=== PATIENT | female | born 1975 | race Caucasian/White ===

== ENCOUNTER 2016-04-28 03:19 | Emergency (ER) | payer SELFPAY ==
[~2016-04-28] VITALS: Ht 160 cm; Wt 54.0 kg
[2016-04-28 03:23] VITALS: BP 130/64; PULSE 72; RESP 18; TEMP 98.2
--- NOTE | 2016-04-28 03:48 | PD ---
HPI Chief Complaint: Back/ Neck Pain or Injury Time Seen by Provider: 03:44 Travel History International Travel<30 days: No Contact w/Intl Traveler<30days: No Traveled to known affect area: No History of Present Illness HPI 40-year-old white female presents to emergency Department with complaints of neck and back pain after alleges fall. The patient states that 8 days ago she had fallen backwards hurting her back and neck. She states that she try to treat herself at home over the week without success. She presents for evaluation. She denies syncope. She denies any focal numbness, tingling or weakness. She states the pain is more down her hips as well as up in her shoulders and neck. PFSH Past Medical History Narrative Medical Anxiety, depression, substance abuse Arthritis: No Asthma: No Autoimmune Disease: No Blood Disorders: No Anxiety: Yes Depression: Yes Heart Rhythm Problems: No Cancer: No Cardiovascular Problems: No High Cholesterol: No Chest Pain: No Congestive Heart Failure: No COPD: No Cerebrovascular Accident: No Diabetes: No Diminished Hearing: No Endocrine: No Gastrointestinal Disorders: No GERD: No Genitourinary: No Headaches: No Hiatal Hernia: No Immune Disorder: No Implanted Vascular Access Dvce: No Kidney Stones: No Musculoskeletal: No Neurologic: No Psychiatric: Yes Reproductive: No Respiratory: No Migraines: No Renal Failure: No Seizures: No Sickle Cell Disease: No Sleep Apnea: No Thyroid Disease: No Ulcer: No ?: Not LMP: TUBAL Menopausal: No : 4 Para: 2 Miscarriage: 0 : 2 Tubal Ligation: Yes Past Surgical History Abdominal Surgery: Yes (laparotomy) AICD: No Arteriovenous Shunt: No Cardiac Surgery: No Ear Surgery: No Endocrine Surgery: No Eye Surgery: No Genitourinary Surgery: No Gynecologic Surgery: Yes Insulin Pump: No Joint Replacement: No Oral Surgery: No Pacemaker: No Thoracic Surgery: No Other Surgery: Yes (tubal, laproscopy) Social History Alcohol Use: No Tobacco Use: Yes (1 ppd) Substance Use: Yes (dilaudid ) Allergies-Medications (Allergen,Severity, Reaction): Coded Allergies: Cipro (Verified Allergy, Severe, TREMORS AND SOB, 04/28/16) *MDRO Multi-Drug Resistant Organism (Verified Allergy, Unknown, 04/28/16) MRSA Reported Meds & Prescriptions Reported Meds & Active Scripts Active No Active Prescriptions or Reported Medications Review of Systems Except as stated in HPI: all other systems reviewed are Neg Physical Exam Narrative GENERAL: This is a well-nourished, well-developed patient, in no apparent distress. SKIN: No rashes, ecchymoses or lesions. Warm and dry. HEAD: Atraumatic. Normocephalic. EYES: PERRL, EOMI, no discharge or injection. No scleral icterus. EARS: Clear NOSE: Nasal turbinates appear normal. THROAT: Mucosa pink and moist. Airway patent. NECK: Trachea midline. supple, moves head freely. No bony tenderness. LUNGS: Clear to auscultation. CV: Regular in rhythm. ABDOMEN: Soft nontender. Back: No central bony tenderness to palpation of dorsal lumbar spine. She complains of pain in the lower paralumbar in SI region. She is able sit up in bed at 90 and move freely. She has no limitations of movement and does not appear to be in any discomfort. No saddle anesthesia. EXT: No clubbing cyanosis or edema. Data Data Last Documented VS Vital Signs Date Time Temp Pulse Resp B/P Pulse Ox O2 Delivery O2 Flow Rate FiO2 04/28/16 03:23 98.2 72 18 130/64 Orders Spine, Cervical - Ltd (Ap&Lat) (04/28/16 03:35) Pelvis, Ap Only (Routine) (04/28/16 03:35) MDM Medical Decision Making Medical Screen Exam Complete: Yes Emergency Medical Condition: Yes Medical Record Reviewed: Yes Interpretation(s) C-spine: Negative for acute bony injury. Pelvis: Negative for acute bony injury Differential Diagnosis MDM: High Differential diagnoses: Fracture, sprain, strain, dislocation, contusion, neurovascular injury Narrative Course X-rays of the neck and pelvis are unremarkable for acute bony injury. The patient's report of injury and pain is inconsistent with her clinical findings. Review the patient's medical record indicates a strong history of substance abuse. I suspect this may be a malingering activity on the patient's behalf to ascertain pain medications. The patient will be given NSAID and muscle relaxer. I do not suspect any infectious etiology of her pain. This is neck and back pain Diagnosis Primary Impression: neck and back pain Patient Instructions: General Instructions Additional Instructions: Rest. Ice for the next 3 days followed by heat . Flexeril and Voltaren. Follow-up with a primary care doctor in one week. Return to the ER for emergencies. Med/Other Pt SpecificInfo: Prescription(s) given Scripts No Active Prescriptions or Reported Meds Disposition: 01 DISCHARGE HOME Condition: Red Perez Apr 28, 2016 03:48
[2016-04-28] MEDS ORDERED: CYCL1TAB29 PO (03:49)
[2016-04-28] MEDS ORDERED: DICL50TA3 PO (03:49)
--- NOTE | 2016-04-28 04:26 | RADRPT ---
EXAM DATE/TIME: 04/28/2016 04:04 [facility] COMPARISON: No previous studies available for comparison. INDICATIONS : Patient states she fell while rollerblading. MEDICAL HISTORY : None. SURGICAL HISTORY : None. ENCOUNTER: Initial ACUITY: 2 weeks PAIN SCORE: 7/10 LOCATION: Bilateral Cervical FINDINGS: No fracture or subluxation demonstrated of the cervical spine. Vertebral bodies have normal height. There is uncovertebral and facet osteoarthritis and disc space narrowing, mild at C5/C6 and moderate at C6-C7. The atlantoaxial relationship is within normal limits. No prevertebral soft tissue swelling seen. CONCLUSION: No fracture or subluxation of the cervical spine. Degenerative changes at C5/C6 and C6/C7. Stephen Castrejon MD on April 28, 2016 at 4:23 Board Certified Radiologist. This report was verified electronically.
--- NOTE | 2016-04-28 04:27 | RADRPT ---
EXAM DATE/TIME: 04/28/2016 04:08 [facility] COMPARISON: No previous studies available for comparison. INDICATIONS : Patient states she fell rollerblading, pelvic pain. MEDICAL HISTORY : None. SURGICAL HISTORY : None. ENCOUNTER: Initial ACUITY: 2 weeks PAIN SCORE: 7/10 LOCATION: Bilateral Pelvis FINDINGS: A single frontal view of the pelvis demonstrates no evidence of fracture. The bony pelvic ring is in tact. Bony mineralization is normal. The soft tissues are intact. CONCLUSION: Intact pelvis. Stephen Castrejon MD on April 28, 2016 at 4:25 Board Certified Radiologist. This report was verified electronically.
[2016-04-28] MEDS ORDERED: KETOROLAC TROMETHAMINE 60 MG/2 ML (IM) VIAL IM ONE (04:30)
== END 2016-04-28 04:39 | disposition home or self-care (01) ==
LOC: NEPB 03:19
DX: M54.9 Dorsalgia, unspecified (principal); M54.2 Cervicalgia; F17.210 Nicotine dependence, cigarettes, uncomplicated; F11.90 Opioid use, unspecified, uncomplicated; F41.8 Other specified anxiety disorders
CPT/HCPCS: 72040; 72170; 96372; 99283; J1885

== ENCOUNTER 2016-05-03 19:50 | Inpatient (IN) | payer SELFPAY ==
[~2016-05-03] VITALS: Ht 160 cm; Wt 48.5 kg
[~2016-05-03 19:50] MED LIST: CYCL1TAB29 PO; DICL50TA3 PO
[2016-05-03 19:52] VITALS: BP 149/71; PULSE 88; RESP 16; TEMP 99.2; O2SAT 96
--- NOTE | 2016-05-03 22:01 | PD ---
HPI Chief Complaint: Injury Time Seen by Provider: 22:01 Travel History International Travel<30 days: No Contact w/Intl Traveler<30days: No Traveled to known affect area: No History of Present Illness HPI 40-year-old female with history of IV drug abuse, currently using IV Dilaudid, presents to emergency department for evaluation of worsening neck and back pain now with associated headache. Patient was seen and evaluated one week ago in the emergency department for neck and back pain and attributed this to a fall while rollerblading. Cervical spine imaging and pelvic imaging at that time was negative. Patient states that her pain has increasingly gotten worse. She states it is difficult to ambulate due to pain in her back. Patient reports no nuchal rigidity. No photophobia. No nausea, vomiting, or diarrhea. She denies any chest pain or tightness. Reports subjective fever and chills. No other symptoms to report. PFSH Past Medical History Arthritis: No Asthma: No Autoimmune Disease: No Blood Disorders: No Anxiety: Yes Depression: Yes Heart Rhythm Problems: No Cancer: No Cardiovascular Problems: No High Cholesterol: No Chest Pain: No Congestive Heart Failure: No COPD: No Cerebrovascular Accident: No Diabetes: No Diminished Hearing: No Endocrine: No Gastrointestinal Disorders: No GERD: No Genitourinary: No Headaches: No Hiatal Hernia: No Immune Disorder: No Implanted Vascular Access Dvce: No Kidney Stones: No Musculoskeletal: No Neurologic: No Psychiatric: Yes Reproductive: No Respiratory: No Migraines: No Renal Failure: No Seizures: No Sickle Cell Disease: No Sleep Apnea: No Thyroid Disease: No Ulcer: No ?: Not LMP: LAST MONTH Menopausal: No : 4 Para: 2 Miscarriage: 0 : 2 Tubal Ligation: Yes Past Surgical History Abdominal Surgery: Yes (laparotomy) AICD: No Arteriovenous Shunt: No Cardiac Surgery: No Ear Surgery: No Endocrine Surgery: No Eye Surgery: No Genitourinary Surgery: No Gynecologic Surgery: Yes Insulin Pump: No Joint Replacement: No Oral Surgery: No Pacemaker: No Thoracic Surgery: No Other Surgery: Yes (tubal, laproscopy) Social History Alcohol Use: No Tobacco Use: Yes (1 ppd) Substance Use: Yes (dilaudid ) Allergies-Medications (Allergen,Severity, Reaction): Coded Allergies: Cipro (Verified Allergy, Severe, TREMORS AND SOB, 05/03/16) *MDRO Multi-Drug Resistant Organism (Verified Allergy, Unknown, 05/03/16) MRSA Reported Meds & Prescriptions Reported Meds & Active Scripts Active Flexeril (Cyclobenzaprine HCl) 10 Mg Tab 10 Mg PO TID Diclofenac Sodium DR (Diclofenac Sodium) 50 Mg Tabdr 50 Mg PO TID Review of Systems Except as stated in HPI: all other systems reviewed are Neg Physical Exam Narrative GENERAL: Well-nourished female patient, seemingly under the influence, continually falling asleep during my conversation in time after but in no acute distress SKIN: Warm and dry. HEAD: Atraumatic. Normocephalic. EYES: Pupils equal and round. No scleral icterus. No injection or drainage. ENT: No nasal bleeding or discharge. Mucous membranes pink and moist. NECK: Trachea midline. No JVD. CARDIOVASCULAR: Regular rate and rhythm. No murmur appreciated. RESPIRATORY: No accessory muscle use. Clear to auscultation. Breath sounds equal bilaterally. GASTROINTESTINAL: Abdomen soft, non-tender, nondistended. Hepatic and splenic margins not palpable. MUSCULOSKELETAL: No obvious deformities. No clubbing. No cyanosis. No edema. No spinal tenderness. Equal strength bilateral extremities. NEUROLOGICAL: Awake and alert. No obvious cranial nerve deficits. Motor grossly within normal limits. Normal speech. PSYCHIATRIC: Appropriate mood and affect; insight and judgment normal. Data Data Last Documented VS Vital Signs Date Time Temp Pulse Resp B/P Pulse Ox O2 Delivery O2 Flow Rate FiO2 05/03/16 19:52 99.2 88 16 149/71 96 Room Air Orders Iv Access Insert/Monitor (05/03/16 22:01) Complete Blood Count With Diff (05/03/16 22:01) Basic Metabolic Panel (Bmp) (05/03/16 22:01) Urinalysis - C+S If Indicated (05/03/16 22:01) Ct Brain W/O Iv Contrast(Rout) (05/03/16 ) Ed Urine Pregnancytest Poc (05/03/16 22:01) Blood Culture (05/03/16 22:01) Lactic Acid (05/03/16 22:01) Ct Cerv Spine W/O Contrast (05/03/16 ) Influenzae A/B Antigen (05/03/16 22:04) Chest, Single Ap (05/03/16 22:04) Sodium Chlor 0.9% 1000 Ml Inj (Ns 1000 M (05/03/16 22:04) Sodium Chlor 0.9% 1000 Ml Inj (Ns 1000 M (05/03/16 22:04) Ct Abd/Pel W Iv Contrast(Rout) (05/04/16 ) Ct Lumb Spine W/O Contrast (05/04/16 ) Westergren Sedimentation Rate (05/04/16 00:09) C-Reactive Protein (Crp) (05/04/16 00:09) Coag Profile (05/04/16 00:11) Mri C Spine W&W/O Contrast (05/04/16 ) Mri L Spine W&W/O Contrast (05/04/16 ) Mri T Spine W & W/O Contrast (05/04/16 ) Iohexol 350 Inj (Omnipaque 350 Inj) (05/04/16 00:26) Acetaminophen (Tylenol) (05/04/16 01:00) Place In Observation (05/04/16 ) Vital Signs (Adult) Q4H (05/04/16 03:26) Activity Oob With Assistance (05/04/16 03:26) Wax Specialist / Telemetry .CONTINUOUS (05/04/16 03:26) Diet Heart Healthy (05/04/16 Breakfast) Sodium Chloride 0.9% Flush (Ns Flush) (05/04/16 03:30) Sodium Chloride 0.9% Flush (Ns Flush) (05/04/16 09:00) Basic Metabolic Panel (Bmp) (05/05/16 06:00) Complete Blood Count With Diff (05/05/16 06:00) Pt Request For Service (05/04/16 03:26) Case Management Consult (05/04/16 03:26) Scd Bilateral/Knee High ARIAN.BID (05/04/16 03:26) Naloxone Inj (Narcan Inj) (05/04/16 03:30) Cyclobenzaprine (Flexeril) (05/04/16 09:00) Admit Order (Ed Use Only) (05/04/16 03:24) Labs Laboratory Tests Test 05/03/16 05/03/16 05/04/16 23:15 23:40 00:45 White Blood Count 16.8 TH/MM3 Red Blood Count 4.24 MIL/MM3 Hemoglobin 12.7 GM/DL Hematocrit 37.1 % Mean Corpuscular Volume 87.7 FL Mean Corpuscular Hemoglobin 29.9 PG Mean Corpuscular Hemoglobin 34.1 % Concent Red Cell Distribution Width 13.1 % Platelet Count 348 TH/MM3 Mean Platelet Volume 7.5 FL Neutrophils (%) (Auto) 87.4 % Lymphocytes (%) (Auto) 6.4 % Monocytes (%) (Auto) 5.7 % Eosinophils (%) (Auto) 0.2 % Basophils (%) (Auto) 0.3 % Neutrophils # (Auto) 14.6 TH/MM3 Lymphocytes # (Auto) 1.1 TH/MM3 Monocytes # (Auto) 1.0 TH/MM3 Eosinophils # (Auto) 0.0 TH/MM3 Basophils # (Auto) 0.0 TH/MM3 CBC Comment DIFF FINAL Differential Comment Sodium Level 131 MEQ/L Potassium Level 3.8 MEQ/L Chloride Level 92 MEQ/L Carbon Dioxide Level 31.3 MEQ/L Anion Gap 8 MEQ/L Blood Urea Nitrogen 11 MG/DL Creatinine 0.77 MG/DL Estimat Glomerular Filtration 83 ML/MIN Rate Random Glucose 105 MG/DL Lactic Acid Level 1.3 mmol/L Calcium Level 9.1 MG/DL Urine Color YELLOW Urine Turbidity HAZY Urine pH 6.5 Urine Specific [place] 1.018 Urine Protein 30 mg/dL Urine Glucose (UA) NEG mg/dL Urine Ketones NEG mg/dL Urine Occult Blood NEG Urine Nitrite NEG Urine Bilirubin NEG Urine Urobilinogen 2.0 MG/DL Urine Leukocyte Esterase NEG Urine WBC 5 /hpf Urine Squamous Epithelial 3 /hpf Cells Urine Amorphous Sediment RARE Urine Hyaline Casts 1 /lpf Urine Mucus FEW /lpf Microscopic Urinalysis Comment CULT NOT INDICATED Erythrocyte Sedimentation Rate 29 mm/hr Prothrombin Time 12.1 SEC Prothromb Time International 1.1 RATIO Ratio Activated Partial 27.2 SEC Thromboplast Time C-Reactive Protein 1.89 MG/DL MDM Medical Decision Making Medical Screen Exam Complete: Yes Emergency Medical Condition: Yes Medical Record Reviewed: Yes Differential Diagnosis Muscle strain versus discogenic pain versus epidural abscess versus osteomyelitis versus discitis versus endocarditis versus influenza Narrative Course 40 year-old female presents to emergency department for evaluation. I have discussed the patient with my attending physician Dr. Barroso. He recommends septic workup based on her history of IV drug abuse. CT imaging of the brain and entire spine is ordered. This is all negative for acute abnormality. CBC is with leukocytosis of 16.8. There is a neutrophilia of 14.6. Sedimentation rate is 29. Patient has mild hyponatremia 131, otherwise BMP is without acute concern. CRP is 1.89. After reviewing the results of imaging studies, Dr. Sal recommends any further with MRI of the spine if this is negative, patient is to be admitted observation to rule out endocarditis. He has discussed the case with Dr. Rodriguez [id number] I am informed by telecommunications field technician that they were unable to complete MRI with contrast due to patient's frequent movement, need to repeat imaging, and he exposure from the machine. They will try this again in the morning. I discussed the patient with Dr. Rodriguez. Patient will be admitted observation to our service. Diagnosis Primary Impression: Neck pain Additional Impressions: Back pain Qualified Code: M54.9 - Other acute back pain Head ache Qualified Code: R51 - Acute intractable headache, unspecified headache type IV drug abuse Leukocytosis Qualified Code: D72.829 - Leukocytosis, unspecified type Admitting Information Admitting Physician Requests: Observation Condition: Stable Claudia Ewing May 03, 2016 22:01
[2016-05-03] MEDS ORDERED: SODIUM CHLOR 0.9% 1000 ML INJ 1,000 ML IV ONE (22:04)
[2016-05-03] MEDS ORDERED: SODIUM CHLOR 0.9% 1000 ML INJ 800 ML IV ONE (22:04)
--- NOTE | 2016-05-03 23:03 | RADRPT ---
EXAM DATE/TIME: 05/03/2016 22:20 [facility] COMPARISON: CHEST SINGLE AP, May 15, 2012, 22:03. INDICATIONS : Chest pain. MEDICAL HISTORY : None. SURGICAL HISTORY : None. ENCOUNTER: Initial ACUITY: 4 - 6 days PAIN SCORE: 8/10 LOCATION: Left chest FINDINGS: A single view of the chest demonstrates the lungs to be symmetrically aerated without evidence of mas s, infiltrate or effusion. The cardiomediastinal contours are unremarkable. Osseous structures are intact. CONCLUSION: No acute disease. Red Baker MD on May 03, 2016 at 23:01 Board Certified Radiologist. This report was verified electronically.
[2016-05-03 23:33] LABS: AUTOMATED NEUTROPHIL # 14.6 TH/MM3 (1.8-7.7); BASOPHIL % 0.3 % (0.0-2.0); EOSINOPHIL % 0.2 % (0.0-4.0); HEMATOCRIT 37.1 % (35.0-46.0); HEMO FLAGS DIFF FINAL; LYMPH % 6.4 % (9.0-44.0); LYMPHOCYTE # 1.1 TH/MM3 (1.0-4.8); MEAN CELL VOLUME 87.7 FL (80.0-100.0); MEAN CORPUSCULAR HEMOGLOBIN 29.9 PG (27.0-34.0); MEAN CORPUSCULAR HGB CONC 34.1 % (32.0-36.0); MONO % 5.7 % (0.0-8.0); NEUT % 87.4 % (16.0-70.0); PLATELET COUNT 348 TH/MM3 (150-450); RED BLOOD COUNT 4.24 MIL/MM3 (4.00-5.30); RED CELL DISTRIBUTION WIDTH 13.1 % (11.6-17.2); WHITE BLOOD COUNT 16.8 TH/MM3 (4.0-11.0)
[2016-05-03 23:53] LABS: BICARBONATE 31.3 MEQ/L (21.0-32.0); POTASSIUM 3.8 MEQ/L (3.5-5.1)
[2016-05-03 23:59] LABS: BLOOD, URINE NEG (NEG); COMMENT (UR) CULT NOT INDICATED; CULTURE IF INDICATED CULT NOT INDICATED; GLUCOSE,URINE NEG (NEG); HYALINE CAST, URINE 1 /lpf (RARE); KETONE, URINE NEG (NEG); MUCUS URINE FEW /lpf (OCC); NITRITE,URINE NEG (NEG); PH, URINE 6.5 (5.0-8.5); SQUAMOUS EPITHELIAL CELL URINE 3 /hpf (0-5); URINE COLOR YELLOW (YELLW/STRAW)
[2016-05-04] MEDS ORDERED: IOHEXOL 350 MG/ML 10 ML VIAL (for RAD DIAG) IV ONE (00:26)
--- NOTE | 2016-05-04 00:26 | RADRPT ---
EXAM DATE/TIME: 05/04/2016 00:14 [facility] COMPARISON: CT CERVICAL SPINE W/O CONTRAST, May 04, 2016, 0:14. INDICATIONS : Fall rollerblading 5 days ago. RADIATION DOSE: 29.46 CTDIvol (mGy) MEDICAL HISTORY : None SURGICAL HISTORY : Tubal ligation. ENCOUNTER: Initial ACUITY: 4 - 6 days PAIN SCALE: 8/10 LOCATION: cranial TECHNIQUE: Multiple contiguous axial images were obtained of the head. Using automated exposure control and adj ustment of the mA and/or kV according to patient size, radiation dose was kept as low as reasonably a chievable to obtain optimal diagnostic quality images. FINDINGS: CEREBRUM: The ventricles are normal for age. No evidence of midline shift, mass lesion, hemorrhage or acute in farction. No extra-axial fluid collections are seen. POSTERIOR FOSSA: The cerebellum and brainstem are intact. The 4th ventricle is midline. The cerebellopontine angle i s unremarkable. EXTRACRANIAL: The visualized portion of the orbits is intact. SKULL: The calvaria is intact. No evidence of skull fracture. CONCLUSION: Normal examination. Devan Frazier MD on May 04, 2016 at 0:24 Board Certified Radiologist. This report was verified electronically.
--- NOTE | 2016-05-04 00:28 | RADRPT ---
EXAM DATE/TIME: 05/04/2016 00:14 [facility] COMPARISON: CT BRAIN W/O CONTRAST, May 04, 2016, 0:14. INDICATIONS : Fall rollerblading 5 days ago. RADIATION DOSE: 17.21 CTDIvol (mGy) MEDICAL HISTORY : None SURGICAL HISTORY : Tubal ligation. ENCOUNTER: Initial ACUITY: 4 - 6 days PAIN SCALE: 8/10 LOCATION: neck TECHNIQUE: Volumetric scanning of the cervical spine was performed. Multiplanar reconstructions in the sagittal, coronal and oblique axial planes were performed. Using automated exposure control and adjustment o f the mA and/or kV according to patient size, radiation dose was kept as low as reasonably achievable to obtain optimal diagnostic quality images. FINDINGS: Normal alignment. Mild anterior osteophyte formation at C5-C7. No prevertebral soft tissue swelling o r compression deformity. Moderate facet arthropathy at C3-4 and mild facet hypertrophic changes at C4 -5 on the left. Cervicothoracic junction is approximated. There is no canal stenosis. Tiny central di sc protrusion at C6-7 identified. CONCLUSION: 1. Degenerative changes without fracture or listhesis. Devan Frazier MD on May 04, 2016 at 0:25 Board Certified Radiologist. This report was verified electronically.
--- NOTE | 2016-05-04 00:38 | RADRPT ---
EXAM DATE/TIME: 05/04/2016 00:22 [facility] COMPARISON: No previous studies available for comparison. INDICATIONS : Fall rollerblading 5 days ago. IV CONTRAST: 70 cc Omnipaque 350 (iohexol) IV ORAL CONTRAST: No oral contrast ingested. RADIATION DOSE: 4.54 CTDIvol (mGy) MEDICAL HISTORY : None SURGICAL HISTORY : Tubal ligation. ENCOUNTER: Initial ACUITY: 4 - 6 days PAIN SCALE: 8/10 LOCATION: abdomen TECHNIQUE: Volumetric scanning of the abdomen and pelvis was performed. Using automated exposure control and ad justment of the mA and/or kV according to patient size, radiation dose was kept as low as reasonably achievable to obtain optimal diagnostic quality images. FINDINGS: LOWER LUNGS: The visualized lower lungs are clear. LIVER: Homogeneous density without lesion. There is no dilation of the biliary tree. No calcified gallston es. SPLEEN: Normal size without lesion. PANCREAS: Within normal limits. KIDNEYS: Normal in size and shape. There is no mass, stone or hydronephrosis. ADRENAL GLANDS: Within normal limits. VASCULAR: There is no aortic aneurysm. BOWEL/MESENTERY: The stomach, small bowel, and colon demonstrate no acute abnormality. There is no free intraperitone al air or fluid. ABDOMINAL WALL: Within normal limits. RETROPERITONEUM: There is no lymphadenopathy. BLADDER: No wall thickening or mass. REPRODUCTIVE: Within normal limits. INGUINAL: There is no lymphadenopathy or hernia. MUSCULOSKELETAL: Within normal limits for patient age. CONCLUSION: Normal examination. Devan Frazier MD on May 04, 2016 at 0:35 Board Certified Radiologist. This report was verified electronically.
--- NOTE | 2016-05-04 00:52 | PD ---
Data Data Last Documented VS Vital Signs Date Time Temp Pulse Resp B/P Pulse Ox O2 Delivery O2 Flow Rate FiO2 05/03/16 19:52 99.2 88 16 149/71 96 Room Air Orders Iv Access Insert/Monitor (05/03/16 22:01) Complete Blood Count With Diff (05/03/16 22:01) Basic Metabolic Panel (Bmp) (05/03/16 22:01) Urinalysis - C+S If Indicated (05/03/16 22:01) Ct Brain W/O Iv Contrast(Rout) (05/03/16 ) Ed Urine Pregnancytest Poc (05/03/16 22:01) Blood Culture (05/03/16 22:01) Lactic Acid (05/03/16 22:01) Ct Cerv Spine W/O Contrast (05/03/16 ) Influenzae A/B Antigen (05/03/16 22:04) Chest, Single Ap (05/03/16 22:04) Sodium Chlor 0.9% 1000 Ml Inj (Ns 1000 M (05/03/16 22:04) Sodium Chlor 0.9% 1000 Ml Inj (Ns 1000 M (05/03/16 22:04) Ct Abd/Pel W Iv Contrast(Rout) (05/04/16 ) Ct Lumb Spine W/O Contrast (05/04/16 ) Westergren Sedimentation Rate (05/04/16 00:09) C-Reactive Protein (Crp) (05/04/16 00:09) Coag Profile (05/04/16 00:11) Mri C Spine W&W/O Contrast (05/04/16 ) Mri L Spine W&W/O Contrast (05/04/16 ) Mri T Spine W & W/O Contrast (05/04/16 ) Iohexol 350 Inj (Omnipaque 350 Inj) (05/04/16 00:26) Labs Laboratory Tests Test 05/03/16 05/03/16 23:15 23:40 White Blood Count 16.8 TH/MM3 Red Blood Count 4.24 MIL/MM3 Hemoglobin 12.7 GM/DL Hematocrit 37.1 % Mean Corpuscular Volume 87.7 FL Mean Corpuscular Hemoglobin 29.9 PG Mean Corpuscular Hemoglobin 34.1 % Concent Red Cell Distribution Width 13.1 % Platelet Count 348 TH/MM3 Mean Platelet Volume 7.5 FL Neutrophils (%) (Auto) 87.4 % Lymphocytes (%) (Auto) 6.4 % Monocytes (%) (Auto) 5.7 % Eosinophils (%) (Auto) 0.2 % Basophils (%) (Auto) 0.3 % Neutrophils # (Auto) 14.6 TH/MM3 Lymphocytes # (Auto) 1.1 TH/MM3 Monocytes # (Auto) 1.0 TH/MM3 Eosinophils # (Auto) 0.0 TH/MM3 Basophils # (Auto) 0.0 TH/MM3 CBC Comment DIFF FINAL Differential Comment Sodium Level 131 MEQ/L Potassium Level 3.8 MEQ/L Chloride Level 92 MEQ/L Carbon Dioxide Level 31.3 MEQ/L Anion Gap 8 MEQ/L Blood Urea Nitrogen 11 MG/DL Creatinine 0.77 MG/DL Estimat Glomerular Filtration 83 ML/MIN Rate Random Glucose 105 MG/DL Lactic Acid Level 1.3 mmol/L Calcium Level 9.1 MG/DL Urine Color YELLOW Urine Turbidity HAZY Urine pH 6.5 Urine Specific [place] 1.018 Urine Protein 30 mg/dL Urine Glucose (UA) NEG mg/dL Urine Ketones NEG mg/dL Urine Occult Blood NEG Urine Nitrite NEG Urine Bilirubin NEG Urine Urobilinogen 2.0 MG/DL Urine Leukocyte Esterase NEG Urine WBC 5 /hpf Urine Squamous Epithelial 3 /hpf Cells Urine Amorphous Sediment RARE Urine Hyaline Casts 1 /lpf Urine Mucus FEW /lpf Microscopic Urinalysis Comment CULT NOT INDICATED MDM Supervised Visit with MITRA: Yes Narrative Course I, Dr. Barroso, have reviewed the advance practice practitioner's documentation and am in agreement, met with the patient face to face, made the diagnosis, and the medical decision making was done by me. See her note for further details. Briefly this is a 48-year-old female with history of IVDU who injects Dilaudid, last use was this morning, here for evaluation of head, neck, and lower back pain. The patient reports a rollerblading accident about 2 weeks ago, and since that time she has been having some lower back pain as well as head pain. She was seen in the emergency department 5 days ago complaining of the same pain. She had an x-ray of her cervical spine at that time which showed some degenerative changes, no acute findings. She also had a pelvic x-ray which was unremarkable. Patient reports having objective fevers and chills that started yesterday. No cough or upper respiratory symptoms. No urinary symptoms. No abdominal pain. Lower back pain radiates down her left leg. No urinary or bowel incontinence or retention. On physical exam the patient has several track ha on her upper extremities, no signs of cellulitis. There are no rashes. No nuchal rigidity. No focal neurologic deficits. Initial vital signs show heart rate 88, blood pressure 149/71, pulse ox 96% on room air, oral temp of 99.2F. CBC shows WBC 16.8 with 87% neutrophils. BMP is remarkable for sodium 131, chloride 92. Lactate is 1.3. Differential diagnosis includes bacteremia, sepsis, endocarditis, epidural abscess, intra-abdominal infection, vertebral fracture. I do not believe she has meningitis or encephalitis. Chest x-ray shows no acute disease. CT head read as normal exam. CT cervical spine shows degenerative change without fracture or listhesis. CT abdomen pelvis read as normal exam. CT lumbar spine: CONCLUSION: Degenerative changes without fracture or listhesis. At approximately 1:00 AM at the end of my shift MRI of the entire spine is still pending. Nurse practitioner Claudia Madera will follow up with this. If these are negative for abscess or discitis, the patient will still likely require admission given fever with history of IVDU as well as leukocytosis to rule out bacteremia/endocarditis. IV antibiotics held pending MRI results. Procedures Procedure Narrative Ultrasound-guided peripheral IV: Given history of IV drug use, peripheral access was difficult to obtain by my nurse who asked me to place an ultrasound-guided IV. A 20-gauge IV catheter was placed in the right arm under ultrasound guidance using the linear probe. The site was prepped with ChloraPrep prior to IV insertion. Tolerated well. No complications. Roderikc Barroso MD May 04, 2016 00:52
--- NOTE | 2016-05-04 00:52 | RADRPT ---
EXAM DATE/TIME: 05/04/2016 00:22 [facility] COMPARISON: No previous studies available for comparison. INDICATIONS : Fall roller blading 5 days ago. RADIATION DOSE: ; Reconstructed from previous dataset MEDICAL HISTORY : None SURGICAL HISTORY : Tubal ligation. ENCOUNTER: Initial ACUITY: 4 - 6 days PAIN SCALE: 8/10 LOCATION: LOWER BACK TECHNIQUE: Volumetric scanning of the lumbar spine was performed. Multiplanar reconstructions in the sagittal, coronal and oblique axial planes were performed. Using automated exposure control and adjustment of the mA and/or kV according to patient size, radiation dose was kept as low as reasonably achievable t o obtain optimal diagnostic quality images. FINDINGS: VERTEBRAE: Normal vertebral body height. ALIGNMENT: No evidence of subluxation. T12-L1: The thecal sac has a normal diameter. No evidence of disc bulge or protrusion. The neural foramina are patent bilaterally. L1-L2: The thecal sac has a normal diameter. No evidence of disc bulge or protrusion. The neural foramina are patent bilaterally. L2-L3: The thecal sac has a normal diameter. No evidence of disc bulge or protrusion. The neural foramina are patent bilaterally. L3-L4: The thecal sac has a normal diameter. No evidence of disc bulge or protrusion. The neural foramina are patent bilaterally. L4-L5: All diffuse disc bulge with no canal or foraminal narrowing. L5-S1: Diffuse disc bulge and osteophytic ridging with no canal narrowing. Mild foraminal narrowing bilatera lly. CONCLUSION: Degenerative changes without fracture or listhesis. Devan Frazier MD on May 04, 2016 at 0:49 Board Certified Radiologist. This report was verified electronically.
[2016-05-04] MEDS ORDERED: ACETAMINOPHEN 325 MG TAB PO ONE (01:00)
[2016-05-04 01:29] LABS: APTT (PATIENT) 27.2 SEC (24.3-30.1); INTERNATIONAL NORMALIZED RATIO 1.1 RATIO; PROTHROMBIN TIME - PATIENT 12.1 SEC (9.8-11.6)
[2016-05-04] MEDS ORDERED: NALOXONE HCL 0.4 MG/ML AMP IV PRN (03:30)
[2016-05-04] MEDS ORDERED: SODIUM CHLORIDE 0.9% FLUSH 5 ML FLUSH FLUSH PRN (03:30)
--- NOTE | 2016-05-04 04:50 | HHI.HP ---
[facility] Service [facility] Primary Care Physician No Primary Care Physician Admission Diagnosis IVDA; leukocytosis; r/o endocarditis vs discitis vs epidural abscess Diagnoses: (1) IV drug abuse (2) Leukocytosis (3) Back pain (4) Neck pain (5) Head ache (6) Hyponatremia Chief Complaint: Severe back and neck pain Travel History International Travel<30 Days: No Contact w/Intl Traveler <30 Da: No Traveled to Known Affected Are: No History of Present Illness Ms. Coleman is a 40 -year-old female with a past medical history of IV drug abuse , MRSA leg wound 06/13/13, chronic back pain, anxiety, and depression who presented to the emergency room on 05/03/2016 complaining of worsening neck and back pain accompanied by headache. She states that she had fallen while rollerblading about 5 days prior to her April 28, 2016 ER visit (she came in at that time for neck and back pain also). She states that since that time, she developed fatigue, fever, and worsening stiffness in back and neck accompanied by pain. She also reports accompanying burning pain radiating down her bilateral legs to her knees. Symptoms are severe. The ER physician was concerned about possible paraspinal abscesses. MRI was ordered of cervical, thoracic, lumbar, spine but images could not be obtained because the patient was moving well imaging was in process. The MRI cannot be repeated again until 7 AM 09/01/16. The patient's temperature is 99.2 in the emergency room. WBC is 16.8 with neutrophilia noted. ESR slightly elevated at 29. C-reactive protein elevated at 1.89. Patient was also noted to have hyponatremia with sodium 131 and chloride 92. Lactic acid was within normal parameters a 1.3. Review of Systems Constitutional: COMPLAINS OF: Fatigue, Fever Respiratory: DENIES: Cough, Shortness of breath Cardiovascular: DENIES: Chest pain, Palpitations Gastrointestinal: DENIES: Black stools, Bloody stools, Diarrhea, Nausea, Vomiting Genitourinary: DENIES: Hematuria, Dysuria Musculoskeletal: COMPLAINS OF: Stiffness, Back pain, Neck pain Neurologic: COMPLAINS OF: Headache, Paresthesias (BURNING SENSATION DOWN LEGS TO KNEES - BILATERAL) Other 10 point review of systems performed and other than what's mentioned in the history of present illness and ROS, systems are otherwise negative . Past Family Social History Past Medical History Melanoma on back 1 year ago Basal cell CA in 20' MRSA - right leg wound 06/09/13 . Past Surgical History Skin cancers removed Tubal ligation Laparoscopy . Reported Medications Reported Meds & Active Scripts Active Flexeril (Cyclobenzaprine HCl) 10 Mg Tab 10 Mg PO TID Diclofenac Sodium DR (Diclofenac Sodium) 50 Mg Tabdr 50 Mg PO TID Allergies: Coded Allergies: Cipro (Verified Allergy, Severe, TREMORS AND SOB, 05/03/16) *MDRO Multi-Drug Resistant Organism (Verified Allergy, Unknown, 05/03/16) MRSA Active Ordered Medications Current Medications Sodium Chloride 1,000 ml @ 1,000 mls/hr Q1H ONCE IV Last administered on 22:04; Start 05/03/16 at 22:04; Stop 05/03/16 at 23:03; Status DC Sodium Chloride (NS 1000 ml Inj) 800 ml @ 1,000 mls/hr Q48M ONCE IV Last administered on 05/04/16 03:20; Start 05/03/16 at 22:04; Stop 05/03/16 at 22:51; Status DC Iohexol (Omnipaque 350 Inj) 70 ml STK-MED ONCE IV Last administered on 00:26; Start 05/04/16 at 00:26; Stop 05/04/16 at 00:27; Status DC Acetaminophen (Tylenol) 650 mg ONCE ONCE PO Last administered on 05/04/16 03: 20; Start 05/04/16 at 01:00; Stop 05/04/16 at 01:01; Status DC IV Flush (NS Flush) 2 ml UNSCH PRN FLUSH FLUSH AFTER USING IV ACCESS; Start 05/04/16 at 03:30 IV Flush (NS Flush) 2 ml BID FLUSH ; Start 05/04/16 at 09:00 Naloxone HCl (Narcan Inj) 0.4 mg UNSCH PRN IV SEE LABEL COMMENTS; Start at 03:30 Cyclobenzaprine HCl (Flexeril) 10 mg TID PO ; Start 05/04/16 at 09:00 Family History Cancer - mother with brain CA . Social History Tobacco: smokes cigarettes- 1 PPD Alcohol: denies Illicit Drugs: IV Dilaudid . Physical Exam Vital Signs Vital Signs Date Time Temp Pulse Resp B/P Pulse Ox O2 Delivery O2 Flow Rate FiO2 05/03/16 19:52 99.2 88 16 149/71 96 Room Air Physical Exam GENERAL: This is a poorly nourished, chronically ill-appearing patient, in no apparent distress. SKIN: No rashes, ecchymoses or lesions. Cool and dry. HEAD: Atraumatic. Normocephalic. EYES: No scleral icterus. No injection or drainage. ENT: Nose without bleeding, purulent drainage. NECK: Trachea midline. No JVD or lymphadenopathy. CARDIOVASCULAR: Regular rate and rhythm without murmurs, gallops, or rubs. RESPIRATORY: Clear to auscultation. Breath sounds equal bilaterally. No wheezes , rales, or rhonchi. GASTROINTESTINAL: Abdomen soft, non-tender, nondistended. No guarding. MUSCULOSKELETAL: Extremities without clubbing, cyanosis, or edema. No calf tenderness. NEUROLOGICAL: Drowsy. Motor and sensory grossly within normal limits. Normal speech. Normal upright gait with ambulation. . Laboratory Laboratory Tests Test 05/03/16 05/03/16 05/04/16 23:15 23:40 00:45 White Blood Count 16.8 Red Blood Count 4.24 Hemoglobin 12.7 Hematocrit 37.1 Mean Corpuscular Volume 87.7 Mean Corpuscular Hemoglobin 29.9 Mean Corpuscular Hemoglobin 34.1 Concent Red Cell Distribution Width 13.1 Platelet Count 348 Mean Platelet Volume 7.5 Neutrophils (%) (Auto) 87.4 Lymphocytes (%) (Auto) 6.4 Monocytes (%) (Auto) 5.7 Eosinophils (%) (Auto) 0.2 Basophils (%) (Auto) 0.3 Neutrophils # (Auto) 14.6 Lymphocytes # (Auto) 1.1 Monocytes # (Auto) 1.0 Eosinophils # (Auto) 0.0 Basophils # (Auto) 0.0 CBC Comment DIFF FINAL Differential Comment Sodium Level 131 Potassium Level 3.8 Chloride Level 92 Carbon Dioxide Level 31.3 Anion Gap 8 Blood Urea Nitrogen 11 Creatinine 0.77 Estimat Glomerular Filtration 83 Rate Random Glucose 105 Lactic Acid Level 1.3 Calcium Level 9.1 Urine Color YELLOW Urine Turbidity HAZY Urine pH 6.5 Urine Specific [place] 1.018 Urine Protein 30 Urine Glucose (UA) NEG Urine Ketones NEG Urine Occult Blood NEG Urine Nitrite NEG Urine Bilirubin NEG Urine Urobilinogen 2.0 Urine Leukocyte Esterase NEG Urine WBC 5 Urine Squamous Epithelial 3 Cells Urine Amorphous Sediment RARE Urine Hyaline Casts 1 Urine Mucus FEW Microscopic Urinalysis Comment CULT NOT INDICATED Erythrocyte Sedimentation Rate 29 Prothrombin Time 12.1 Prothromb Time International 1.1 Ratio Activated Partial 27.2 Thromboplast Time C-Reactive Protein 1.89 Date/Time Procedure Status Source Growth 05/04/16 03:51 Aerobic Blood Culture Received Blood Peripheral Pending 05/04/16 03:51 Anaerobic Blood Culture Received Blood Peripheral Pending 05/03/16 23:40 Influenza Types A,B Antigen (INES) - Final Complete Nasal Washing NEGATIVE FOR FLU A AND B ANTIGEN.... Result Diagram: 05/03/16231405/03/162314 Imaging Last Impressions Lumbar Spine CT 05/04/16 0000 Signed Impressions: Service Date/Time: Wednesday, May 04, 2016 00:22 - CONCLUSION: Degenerative changes without fracture or listhesis. Devan Frazier MD Abdomen/Pelvis CT 05/04/16 0000 Signed Impressions: Service Date/Time: Wednesday, May 04, 2016 00:22 - CONCLUSION: Normal examination. Devan Frazier MD Chest X-Ray 05/03/162203 Signed Impressions: Service Date/Time: Tuesday, May 03, 2016 22:20 - CONCLUSION: No acute disease. Red Baker MD Head CT 05/03/16 0000 Signed Impressions: Service Date/Time: Wednesday, May 04, 2016 00:14 - CONCLUSION: Normal examination. Devan Frazier MD Cervical Spine CT 05/03/16 0000 Signed Impressions: Service Date/Time: Wednesday, May 04, 2016 00:14 - CONCLUSION: 1. Degenerative changes without fracture or listhesis. Devan Frazier MD . Assessment and Plan Problem List: (1) Leukocytosis ICD Code: D72.829 Status: Acute (2) IV drug abuse ICD Code: F19.10 Status: Acute (3) Back pain ICD Code: M54.9 Status: Acute (4) Neck pain ICD Code: M54.2 Status: Acute (5) Head ache ICD Code: R51 Status: Acute (6) Hyponatremia ICD Code: E87.1 Status: Acute Assessment and Plan Back/Neck pain/headache - Awaiting repeat attempt to obtain MRI of cervical, thoracic, lumbar spine to rule out epidural abscess - When necessary Tylenol and Flexeril as needed for pain Leukocytosis/ suspects sepsis IV drug abuse - Elevated CRP at 1.89, elevated ESR at 29, WBC 16.8 with neutrophilia - Start Zosyn 4.5 g IV every 6 hours and vancomycin IV with pharmacy consult for therapeutic monitoring and dosing - Check 2-D echocardiogram for possible endocarditis - Patient clinically looks quite sick. Suspects she is bacteremic. Her exam of the spine is actually quite benign. She is complaining more of episodic shooting pains which she says is more consistent with sciatica. We would pursue MRI in the morning again to rule out epidural abscess. However I have decided to treat with empiric antibiotics because I do believe that she is bacteremic and septic from IV drug abuse. Less chance of epidural abscess based on physical exam and CT imaging studies. Hyponatremia - Patient has had normal saline 1800 cc fluid bolus in ER - recheck BMP in a.m. and follow trends - Replace sodium as needed DVT prophylaxis - Lovenox 40 mg subq daily Written by Isidra Davis, acting as scribe for Dr. Rodriguez on 05/04/16 at 04:49. The documentation accurately reflects the work performed [id number] by me on at 0449 Discussed Condition With Patient, RN, and ER physician . Problem Qualifiers (1) Leukocytosis: Qualified Code: D72.829 - Leukocytosis, unspecified type (2) Back pain: Qualified Code: M54.9 - Other acute back pain (3) Head ache: Qualified Code: R51 - Acute intractable headache, unspecified headache type Isirda Davis May 04, 2016 04:49 Alice Rodriguez MD May 04, 2016 07:57
[2016-05-04] MEDS ORDERED: Vancomycin Consult Pharmacy 1 EA OTHER SCH (05:00)
[2016-05-04] MEDS: PIPERACIL-TAZO 4.5 GM PREMIX 100 ML IV SCH ×4 (05:59→23:00)
[2016-05-04 06:00] VITALS: BP 138/83; PULSE 97; RESP 18; O2SAT 97
[2016-05-04] MEDS ORDERED: VANCOMYCIN INJ 1,000 MG in SODIUM CHLOR 0.9% 250 ML INJ 250 ML IV ONE (06:00)
[2016-05-04 08:45] VITALS: BP 103/67; PULSE 76; RESP 20; TEMP 98.3; O2SAT 100
[2016-05-04] MEDS: CYCLOBENZAPRINE HCL 10 MG TAB PO SCH ×3 (08:45→18:52)
[2016-05-04] MEDS: ENOXAPARIN SODIUM 40 MG/0.4 ML SYRINGE SQ SCH (08:45)
[2016-05-04] MEDS: SODIUM CHLORIDE 0.9% FLUSH 5 ML FLUSH FLUSH SCH ×2 (08:45→21:48)
--- NOTE | 2016-05-04 09:09 | RADRPT ---
EXAM DATE/TIME: 05/04/2016 07:34 [facility] COMPARISON: No previous studies available for comparison. INDICATIONS: Osteomyelitis. CONTRAST: 10 cc Omniscan (gadodiamide) IV MEDICAL HISTORY: Liver abscess SURGICAL HISTORY: Laparoscopy ENCOUNTER: Initial ACUITY: 1 week PAIN SCORE: 8/10 LOCATION: Bilateral lower back region TECHNIQUE: Multiplanar multisequence MRI of the lumbar spine was performed with and without contrast. FINDINGS: The sagittal images demonstrate loss of disc height and signal intensity at L5-S1 consistent with deg enerative disc disease. The remainder of the disc spaces are well maintained in height and signal in tensity. The lumbar vertebral bodies are normal in height and marrow intensity. There is no jim bruce fracture or marrow infiltration. No abnormal enhancement of the vertebral bodies is noted to montano ggest osteomyelitis. There is a small broad-based left paracentral disc bulge with tiny extruded fra gment extending inferiorly at L5-S1. T12-L1: There is no significant spinal stenosis, disc bulge or herniation. Bilateral neural foramina are pat ent. The facet joints and ligaments are unremarkable. L1-L2: There is no significant spinal stenosis, disc bulge or herniation. Bilateral neural foramina are pat ent. The facet joints and ligaments are unremarkable. L2-3: There is no significant spinal stenosis, disc bulge or herniation. Bilateral neural foramina are pat ent. The facet joints and ligaments are unremarkable. L3-4: There is no significant spinal stenosis, disc bulge or herniation. Bilateral neural foramina are pat ent. The facet joints and ligaments are unremarkable. L4-5: There is a minimal diffuse disc bulge which results in no significant spinal stenosis. Minimal facet joint hypertrophy is noted bilaterally at this level. No significant neural foraminal narrowing is noted. L5-S1: There is a small broad-based left paracentral disc bulge with tiny extruding fragment extending infer iorly which results in slight effacement of the anterior thecal sac on the left. Mild facet joint hy pertrophy is noted bilaterally. There is no spinal stenosis or significant nerve root impingement at this level. CONCLUSION: 1. No abnormal enhancement to suggest osteomyelitis within the lumbar spine. 2. Small broad-based left paracentral disc bulge with tiny extruded fragment extending inferiorly at L5-S1. 3. Degenerative disc disease at L5-S1. 4. Mild facet joint hypertrophy bilaterally at L4-5 and L5-S1. 5. Minimal diffuse bulge at L4-5. Jostin Chavira MD on May 04, 2016 at 8:29 Board Certified Radiologist. This report was verified electronically.
--- NOTE | 2016-05-04 09:18 | HHI.PR ---
Subjective Remarks Patient states on and off neck pain and lower sciatic pain both left and right side. The sciatic pain does radiate down in bilateral lower legs. She does admit to using IV Dilaudid recreationally. Her last injection was yesterday with 8 mg. She states that she will be returning back to [place] to seek drug rehabilitation after discharge. She reports some mild chills and fever yesterday prior to coming to emergency room. She states that there is no active pain at this time. Objective Vitals Vital Signs Date Time Temp Pulse Resp B/P Pulse Ox O2 Delivery O2 Flow Rate FiO2 05/04/16 08:45 98.3 76 20 103/67 100 Room Air 05/04/16 06:00 97 18 138/83 97 Room Air 05/03/16 19:52 99.2 88 16 149/71 96 Room Air I/O 05/03/16 05/03/16 05/03/16 05/04/16 05/04/16 05/04/16 07:00 15:00 23:00 07:00 15:00 23:00 Intake Total 480 ml Balance 480 ml Intake Oral 480 ml Result Diagram: 05/03/165 05/03/162 Objective Remarks GENERAL: This is a well-nourished, well-developed patient, in no apparent distress. CARDIOVASCULAR: Regular rate and rhythm without any murmurs RESPIRATORY: Clear to auscultation. Breath sounds equal bilaterally. No wheezes , rales, or rhonchi. GASTROINTESTINAL: Abdomen soft, non-tender, nondistended. Normal active bowel sounds MUSCULOSKELETAL: Extremities without clubbing, cyanosis, or edema. Palpation of the cervical neck area show no significant pain with full range of motion. Palpation of the thoracic and lumbar spine show no focal tenderness no pain on the sciatic area. NEURO: Alert & Oriented x4 to person, place, time, situation. Moves all ext x4 patient seems comfortable. A/P Problem List: (1) Leukocytosis ICD Code: D72.829 Status: Acute (2) IV drug abuse ICD Code: F19.10 Status: Acute (3) Back pain ICD Code: M54.9 Status: Acute (4) Neck pain ICD Code: M54.2 Status: Acute (5) Head ache ICD Code: R51 Status: Acute (6) Hyponatremia ICD Code: E87.1 Status: Acute Assessment and Plan Back/Neck pain/headache with a history IV drug abuse - Awaiting repeat attempt to obtain MRI of cervical, thoracic, lumbar spine to rule out epidural abscess - When necessary Tylenol and Flexeril as needed for pain Leukocytosis/ suspects sepsis with presenting elevated heart rate and WBC greater than 12,000 in a patient with a history of IV drug abuse, recreational Dilaudid IV use - Elevated CRP at 1.89, elevated ESR at 29, WBC 16.8 with neutrophilia, await blood cultures. - Start Zosyn 4.5 g IV every 6 hours and vancomycin IV with pharmacy consult for therapeutic monitoring and dosing - Check 2-D echocardiogram for possible endocarditis, no murmurs heard on exam. - Patient clinically looks ill. Her exam of the spine is actually quite benign. She is complaining more of episodic shooting pains which she says is more consistent with sciatica. We'll follow-up with MRI to rule out spinal abscess. IV drug abuse, Dilaudid- cessation counseling performed, patient states that she is returning to [place] after discharge from the hospital to seek drug rehabilitation treatment. She states that she has successfully completed drug rehabilitation treatment in [place] past and understands the importance of follow through and the risks of continued IV drug abuse including endocarditis, septic emboli, . Hyponatremia- IV fluid hydration. DVT prophylaxis - Lovenox 40 mg subq daily Problem Qualifiers (1) Leukocytosis: Qualified Code: D72.829 - Leukocytosis, unspecified type (2) Back pain: Qualified Code: M54.9 - Other acute back pain (3) Head ache: Qualified Code: R51 - Acute intractable headache, unspecified headache type Kelly Saini MD May 04, 2016 09:18
--- NOTE | 2016-05-04 09:22 | RADRPT ---
EXAM DATE/TIME: 05/04/2016 01:34 [facility] COMPARISON: No previous studies available for comparison. INDICATIONS : Osteomyelitis. CONTRAST: 10 cc Omniscan (gadodiamide) IV MEDICAL HISTORY : Liver abscess SURGICAL HISTORY : Laproscopomy ENCOUNTER: Initial ACUITY: 1 week PAIN SCORE: 8/10 LOCATION: Bilateral upper neck region TECHNIQUE: Multiplanar, multisequence MRI examination of the cervical spine was performed. FINDINGS: VERTEBRAE: Normal vertebral body height. Homogeneous marrow signal. ALIGNMENT: No evidence of subluxation. CORD: Normal configuration and signal. POST FOSSA: The cerebellar tonsils are normal in position. POST-CONTRAST: No abnormal areas of enhancement are seen. C2-C3: The thecal sac has a normal configuration. There is no evidence of disc herniation or spina l canal stenosis. The neural foramina are patent bilaterally. C3-C4: The thecal sac has a normal configuration. There is no evidence of disc herniation or spinal canal stenosis. The neural foramina are patent bilaterally. C4-C5: The thecal sac has a normal configuration. There is no evidence of disc herniation or spinal canal stenosis. The neural foramina are patent bilaterally. C5-C6: Mild interspace ridging is present without significant stenosis or neuroforaminal encroachment .. C6-C7: Mild space ridging present without significant neural compression. C7-T1: The thecal sac has a normal configuration. There is no evidence of disc herniation or spinal canal stenosis. The neural foramina are patent bilaterally. CONCLUSION: Mild degenerative changes otherwise negative. Javier Kingston MD FACR on May 04, 2016 at 9:19 Board Certified Radiologist. This report was verified electronically.
--- NOTE | 2016-05-04 09:38 | RADRPT ---
EXAM DATE/TIME: 05/04/2016 07:34 [facility] COMPARISON: CT ABDOMEN & PELVIS W CONTRAST, May 04, 2016, 0:22. INDICATIONS : Osteomyelitis. CONTRAST: 10 cc Omniscan (gadodiamide) IV MEDICAL HISTORY : Liver abscess SURGICAL HISTORY : Laproscopomy ENCOUNTER: Initial ACUITY: 1 week PAIN SCORE: 8/10 LOCATION: mid back region TECHNIQUE: Multiplanar multisequence MRI of the thoracic spine was performed. FINDINGS: VERTEBRA: Normal vertebral body height. Homogeneous marrow signal. ALIGNMENT: Normal. CORD: Normal position and configuration. POST CONTRAST: No abnormal areas of contrast enhancement seen. T1-T2: Normal. T2-T3: The thecal sac has a normal diameter. No evidence of disc bulge or protrusion. T3-T4: The thecal sac has a normal diameter. No evidence of disc bulge or protrusion. T4-T5: The thecal sac has a normal diameter. No evidence of disc bulge or protrusion. T5-T6: The thecal sac has a normal diameter. No evidence of disc bulge or protrusion. T6-T7: The thecal sac has a normal diameter. No evidence of disc bulge or protrusion. T7-T8: The thecal sac has a normal diameter. No evidence of disc bulge or protrusion. T8-T9: The thecal sac has a normal diameter. No evidence of disc bulge or protrusion. T9-T10: The thecal sac has a normal diameter. No evidence of disc bulge or protrusion. T10-T11: The thecal sac has a normal diameter. No evidence of disc bulge or protrusion. T11-T12: The thecal sac has a normal diameter. No evidence of disc bulge or protrusion. T12-L1: The thecal sac has a normal diameter. No evidence of disc bulge or protrusion. CONCLUSION: Negative MRI of the thoracic spine for discitis. Javier Kingston MD FACR on May 04, 2016 at 9:35 Board Certified Radiologist. This report was verified electronically.
[2016-05-04] MEDS ORDERED: GADODIAMIDE PF 287 MG/ML 10 ML VIAL (for RAD MRI) IV ONE (10:37)
[2016-05-04 12:00] VITALS: BP 111/70; PULSE 80; RESP 20; TEMP 98.4; O2SAT 97
--- NOTE | 2016-05-04 17:38 | EC ---
Study Study Date:05/04/2016 STUDY CONCLUSIONS SUMMARY - Left ventricle: The cavity size was normal. Wall thickness was normal. Systolic function was normal. The estimated ejection fraction was in the range of 50% to 55%. Wall motion was normal; there were no regional wall motion abnormalities. - Aortic valve: Valve area: 2.56cm^2 (Vmax). Impressions: No evidence of endocarditis. If LV function is below 40, please consider prescribing an ACEI or ARB or document rationale for non-use. PROCEDURE DATA STUDY STATUS: Elective. Procedure: Transthoracic echocardiography. Image quality was good. Scanning was performed from the parasternal, apical, and subcostal acoustic windows. Study completion: The patient tolerated the procedure well. Transthoracic echocardiography. M-mode, complete 2D, complete spectral Doppler, and color Doppler. Patient status: Inpatient. CARDIAC ANATOMY LEFT VENTRICLE: The cavity size was normal. Wall thickness was normal. Systolic function was normal. The estimated ejection fraction was in the range of 50% to 55%. Wall motion was normal; there were no regional wall motion abnormalities. AORTIC VALVE: Trileaflet; normal thickness leaflets. Doppler: Transvalvular velocity was within the normal range. There was no stenosis. No regurgitation. Valve area: 2.56cm^2 (Vmax). AORTA: Aortic root: The aortic root was normal in size. MITRAL VALVE: Structurally normal valve. Doppler: Transvalvular velocity was within the normal range. There was no evidence for stenosis. No regurgitation. Peak gradient: 3mm Hg (D). LEFT ATRIUM: The atrium was normal in size. RIGHT VENTRICLE: The cavity size was normal. Wall thickness was normal. PULMONIC VALVE: Doppler: Transvalvular velocity was within the normal range. There was no evidence for stenosis. No regurgitation. TRICUSPID VALVE: Structurally normal valve. Doppler: Transvalvular velocity was within the normal range. No regurgitation. PULMONARY ARTERY: The main pulmonary artery was normal-sized. Systolic pressure was within the normal range. RIGHT ATRIUM: The atrium was normal in size. PERICARDIUM: There was no pericardial effusion. SYSTEMIC VEINS: Inferior vena cava: The vessel was normal in size. BASIC MEASUREMENTS ADULT NORMAL Left ventricle LV internal dimension, ED, chordal level, *40.4 mm 43-52 PLAX LV internal dimension, ES, chordal level, 28.2 mm 23-38 PLAX Fractional shortening, chordal level, PLAX 30 % >29 LV posterior wall thickness, ED 6.28 mm IVS/LVPW ratio, ED *1.33 <1.3 Ventricular septum Septal thickness, ED 8.34 mm Aortic valve Leaflet separation 20 mm 15-26 BASIC MEASUREMENTS ADULT NORMAL Aortic valve Leaflet separation 20 mm 15-26 Aorta Root diameter, ED 24 mm 20-37 Left atrium Anterior-posterior dimension, ES 32 mm 19-40 LA/aortic root ratio 1.33 DOPPLER MEASUREMENTS ADULT NORMAL Main pulmonary artery Pressure, S 23 mm Hg =30 Aortic valve Peak velocity, S 136 cm/s Valve area, Vmax 2.56 cm^2 Mitral valve Peak E-wave velocity 91.8 cm/s Peak A-wave velocity 55.3 cm/s Deceleration time 225 ms 150-230 Peak gradient, D 3 mm Hg Peak E/A ratio 1.7 Tricuspid valve Regurgitant peak velocity 212 cm/s Peak RV-RA gradient, S 18 mm Hg Maximal regurgitant velocity 212 cm/s Systemic veins Estimated CVP 10 mm Hg Right ventricle RV pressure, S 28 mm Hg <30 Pulmonic valve Peak velocity, S 109 cm/s LEGEND: Mean values are shown as u=mean value. Asterisk (*) ha values outside specified normal range. Prepared and signed by Naeem Easton [id number]
[2016-05-04 18:56] VITALS: BP 133/71; PULSE 102; RESP 16; TEMP 98.6; O2SAT 100
[2016-05-04 20:51] VITALS: BP 122/67; PULSE 101; RESP 21; TEMP 97.2; O2SAT 96
[2016-05-04] MEDS: VANCOMYCIN 1,000 MG/NS 250 ML IV SCH ×2 (21:48)
[2016-05-05 00:34] VITALS: BP 112/62; PULSE 101; RESP 20; TEMP 99.3; O2SAT 100
[2016-05-05] MEDS: LORazepam 0.5 MG TAB PO PRN ×2 (03:33→11:31)
[2016-05-05 04:48] VITALS: BP 135/68; PULSE 86; RESP 20; TEMP 97.9; O2SAT 100
[2016-05-05] MEDS: PIPERACIL-TAZO 4.5 GM PREMIX 100 ML IV SCH ×4 (06:17→20:29)
[2016-05-05 08:20] LABS: AUTOMATED NEUTROPHIL # 6.5 TH/MM3 (1.8-7.7); BASOPHIL % 0.3 % (0.0-2.0); EOSINOPHIL % 0.2 % (0.0-4.0); HEMATOCRIT 34.9 % (35.0-46.0); HEMO FLAGS DIFF FINAL; LYMPHOCYTE # 1.3 TH/MM3 (1.0-4.8); MEAN CELL VOLUME 87.6 FL (80.0-100.0); MEAN CORPUSCULAR HEMOGLOBIN 29.8 PG (27.0-34.0); MONO % 4.5 % (0.0-8.0); PLATELET COUNT 281 TH/MM3 (150-450); RED BLOOD COUNT 3.99 MIL/MM3 (4.00-5.30); WHITE BLOOD COUNT 8.2 TH/MM3 (4.0-11.0)
[2016-05-05] MEDS: CYCLOBENZAPRINE HCL 10 MG TAB PO SCH ×3 (08:25→20:24)
[2016-05-05] MEDS: ENOXAPARIN SODIUM 40 MG/0.4 ML SYRINGE SQ SCH (08:25)
[2016-05-05] MEDS: SODIUM CHLORIDE 0.9% FLUSH 5 ML FLUSH FLUSH SCH ×2 (08:26→20:25)
[2016-05-05] MEDS: VANCOMYCIN 1,000 MG/NS 250 ML IV SCH ×4 (08:28→20:26)
[2016-05-05 08:37] LABS: BICARBONATE 25.6 MEQ/L (21.0-32.0); POTASSIUM 3.5 MEQ/L (3.5-5.1)
[2016-05-05 09:05] VITALS: BP 135/82; PULSE 95; RESP 20; TEMP 96.6; O2SAT 100
--- NOTE | 2016-05-05 10:28 | HHI.PR ---
Subjective Remarks Sciatic pain much better. No complaint of neck pain. Feeling anxious. Understands importance of undergoing drug rehab and return to [place] upon discharge. Objective Vitals Vital Signs Date Time Temp Pulse Resp B/P Pulse Ox O2 Delivery O2 Flow Rate FiO2 05/05/16 09:05 96.6 95 20 135/82 100 05/05/16 04:48 97.9 86 20 135/68 100 05/05/16 00:34 99.3 101 20 112/62 100 05/04/16 20:51 97.2 101 21 122/67 96 05/04/16 19:22 100 05/04/16 18:56 98.6 102 16 133/71 100 Room Air 05/04/16 12:00 98.4 80 20 111/70 97 Room Air I/O 05/04/16 05/04/16 05/04/16 05/05/16 05/05/16 05/05/16 07:00 15:00 23:00 07:00 15:00 23:00 Intake Total 960 ml 240 ml Balance 960 ml 240 ml Intake Oral 960 ml 240 ml # Voids 0 1 Result Diagram: 05/05/1616 05/05/1616 Other Results Microbiology Date/Time Procedure Status Source Growth 05/04/16 03:51 Aerobic Blood Culture - Preliminary Resulted Blood Peripheral NO GROWTH IN 1 DAY 05/04/16 03:51 Anaerobic Blood Culture - Preliminary Resulted Blood Peripheral NO GROWTH IN 1 DAY 05/03/16 23:40 Influenza Types A,B Antigen (INES) - Final Complete Nasal Washing NEGATIVE FOR FLU A AND B ANTIGEN.... Imaging Last 48 hours Impressions Thoracic Spine MRI 05/04/16 0000 Signed Impressions: Service Date/Time: Wednesday, May 04, 2016 07:34 - CONCLUSION: Negative MRI of the thoracic spine for discitis. Javier Kingston MD FACR Lumbar Spine MRI 05/04/16 0000 Signed Impressions: Service Date/Time: Wednesday, May 04, 2016 07:34 - CONCLUSION: 1. No abnormal enhancement to suggest osteomyelitis within the lumbar spine. 2. Small broad-based left paracentral disc bulge with tiny extruded fragment extending inferiorly at L5-S1. 3. Degenerative disc disease at L5-S1. 4. Mild facet joint hypertrophy bilaterally at L4-5 and L5-S1. 5. Minimal diffuse bulge at L4-5. Jostin Chavira MD Lumbar Spine CT 05/04/16 0000 Signed Impressions: Service Date/Time: Wednesday, May 04, 2016 00:22 - CONCLUSION: Degenerative changes without fracture or listhesis. Devan Frazier MD Cervical Spine MRI 05/04/16 0000 Signed Impressions: Service Date/Time: Wednesday, May 04, 2016 01:34 - CONCLUSION: Mild degenerative changes otherwise negative. Javier Kingston MD FACR Abdomen/Pelvis CT 05/04/16 Signed Impressions: Service Date/Time: Wednesday, May 04, 2016 00:22 - CONCLUSION: Normal examination. Devan Frazier MD Chest X-Ray 05/03/162203 Signed Impressions: Service Date/Time: Tuesday, May 03, 2016 22:20 - CONCLUSION: No acute disease. Red Baker MD Objective Remarks GENERAL: This is a well-nourished, well-developed patient, in no apparent distress. CARDIOVASCULAR: Regular rate and rhythm without any murmurs RESPIRATORY: Clear to auscultation. Breath sounds equal bilaterally. No wheezes , rales, or rhonchi. GASTROINTESTINAL: Abdomen soft, non-tender, nondistended. Normal active bowel sounds MUSCULOSKELETAL: Extremities without clubbing, cyanosis, or edema. Palpation of the thoracic and lumbar spine show no focal tenderness no pain on the sciatic area. NEURO: Alert & Oriented x4 to person, place, time, situation. Moves all ext x4 patient seems comfortable. A/P Problem List: (1) IV drug abuse ICD Code: F19.10 Status: Acute (2) Leukocytosis ICD Code: D72.829 Status: Acute (3) Back pain ICD Code: M54.9 Status: Acute (4) Neck pain ICD Code: M54.2 Status: Acute (5) Head ache ICD Code: R51 Status: Acute (6) Hyponatremia ICD Code: E87.1 Status: Acute Assessment and Plan Back/Neck pain/headache with a history IV drug abuse - A MRI of cervical, thoracic, lumbar spine ruled out abscess or any osteomyelitis. - When necessary Tylenol and Flexeril as needed for pain Leukocytosis/ suspects sepsis with presenting elevated heart rate and WBC greater than 12,000 in a patient with a history of IV drug abuse, recreational Dilaudid IV use - Elevated CRP at 1.89, elevated ESR at 29, WBC 16.8 with neutrophilia on admission, await final blood cultures which is negative thus far. - Start Zosyn 4.5 g IV every 6 hours and vancomycin IV with pharmacy consult for therapeutic monitoring and dosing - Checked 2-D echocardiogram which revealed no endocarditis, no murmurs heard on exam. - Patient clinically is starting to look better Her exam of the spine is actually quite benign. She is complaining more of episodic shooting pains which she says is more consistent with sciatica. MRI exams are negative for any type of infectious source. We'll discontinue IV antibiotics after 48 hours of negative blood cultures. IV drug abuse, Dilaudid- cessation counseling performed, patient states that she is returning to [place] after discharge from the hospital to seek drug rehabilitation treatment. She states that she has successfully completed drug rehabilitation treatment in [place] past and understands the importance of follow through and the risks of continued IV drug abuse including endocarditis, septic emboli, . Dose of methadone today to prevent narcotic withdrawal Hyponatremia- IV fluid hydration. Clinically improving DVT prophylaxis - Lovenox 40 mg subq daily Discharge Planning Likely discharge to home in the morning if blood cultures remain negative. Problem Qualifiers (1) Leukocytosis: Qualified Code: D72.829 - Leukocytosis, unspecified type (2) Back pain: Qualified Code: M54.9 - Other acute back pain (3) Head ache: Qualified Code: R51 - Acute intractable headache, unspecified headache type Kelly Saini MD May 05, 2016 10:28
[2016-05-05 12:11] VITALS: BP 130/76; PULSE 125; RESP 20; TEMP 97; O2SAT 100
[2016-05-05] MEDS ORDERED: METHADONE HCL 10 MG TAB PO ONE (15:00)
[2016-05-05 16:25] VITALS: BP 125/71; PULSE 111; RESP 20; TEMP 99; O2SAT 100
[2016-05-05 20:40] VITALS: BP 116/64; PULSE 110; RESP 20; TEMP 97.9; O2SAT 100
[2016-05-06] VITALS: BP 107/73; PULSE 98; RESP 20; TEMP 98.9; O2SAT 100
[2016-05-06 04:00] VITALS: BP 129/73; PULSE 93; RESP 20; TEMP 97.2; O2SAT 100
[2016-05-06] MEDS: PIPERACIL-TAZO 4.5 GM PREMIX 100 ML IV SCH ×2 (04:28→11:31)
[2016-05-06 07:51] VITALS: BP 108/69; PULSE 86; RESP 18; TEMP 98.5; O2SAT 97
[2016-05-06 08:00] VITALS: BP 108/69; PULSE 86; RESP 18; TEMP 98.5
[2016-05-06] MEDS: ENOXAPARIN SODIUM 40 MG/0.4 ML SYRINGE SQ SCH (08:11)
[2016-05-06] MEDS: CYCLOBENZAPRINE HCL 10 MG TAB PO SCH ×2 (08:12→11:31)
[2016-05-06] MEDS: SODIUM CHLORIDE 0.9% FLUSH 5 ML FLUSH FLUSH SCH (08:12)
[2016-05-06] MEDS: VANCOMYCIN 1,000 MG/NS 250 ML IV SCH ×2 (08:12)
[2016-05-06] MEDS ORDERED: PHARMACY ORDERED LAB XX ONE (08:45)
[2016-05-06] MEDS ORDERED: METHADONE HCL 10 MG TAB PO SCH (09:00)
[2016-05-06 12:00] VITALS: BP 109/54; PULSE 110; RESP 19; TEMP 98.8; O2SAT 100
--- NOTE | 2016-05-06 12:26 | HHI.PR ---
Subjective Remarks The patient says she feels better. She wanted to know what happened. She does still have some shooting pains down her leg. She wants to go to outpatient rehabilitation in [place]. She wants to be discharged today. Discussed with nursing. Objective Vitals Vital Signs Date Time Temp Pulse Resp B/P Pulse Ox O2 Delivery O2 Flow Rate FiO2 05/06/16 08:00 98.5 86 18 108/69 05/06/16 07:51 98.5 86 18 108/69 97 05/06/16 04:00 97.2 93 20 129/73 100 05/06/16 00:00 98.9 98 20 107/73 100 05/05/16 20:40 97.9 110 20 116/64 100 05/05/16 16:25 99.0 111 20 125/71 100 I/O 05/05/16 05/05/16 05/05/16 05/06/16 05/06/16 05/06/16 07:00 15:00 23:00 07:00 15:00 23:00 Intake Total 1560 ml Balance 1560 ml Intake Oral 1560 ml # Voids 1 2 Result Diagram: 05/05/16 0716 05/05/16 0716 Imaging Last Impressions Thoracic Spine MRI 05/04/16 0000 Signed Impressions: Service Date/Time: Wednesday, May 04, 2016 07:34 - CONCLUSION: Negative MRI of the thoracic spine for discitis. Javier Kingston MD FACR Lumbar Spine MRI 05/04/16 0000 Signed Impressions: Service Date/Time: Wednesday, May 04, 2016 07:34 - CONCLUSION: 1. No abnormal enhancement to suggest osteomyelitis within the lumbar spine. 2. Small broad-based left paracentral disc bulge with tiny extruded fragment extending inferiorly at L5-S1. 3. Degenerative disc disease at L5-S1. 4. Mild facet joint hypertrophy bilaterally at L4-5 and L5-S1. 5. Minimal diffuse bulge at L4-5. Jostin Chavira MD Lumbar Spine CT 05/04/16 0000 Signed Impressions: Service Date/Time: Wednesday, May 04, 2016 00:22 - CONCLUSION: Degenerative changes without fracture or listhesis. Devan Frazier MD Cervical Spine MRI 05/04/16 0000 Signed Impressions: Service Date/Time: Wednesday, May 04, 2016 01:34 - CONCLUSION: Mild degenerative changes otherwise negative. Javier Kingston MD FACR Abdomen/Pelvis CT 05/04/16 0000 Signed Impressions: Service Date/Time: Wednesday, May 04, 2016 00:22 - CONCLUSION: Normal examination. Devan Frazier MD Chest X-Ray 05/03/162203 Signed Impressions: Service Date/Time: Tuesday, May 03, 2016 22:20 - CONCLUSION: No acute disease. Red Baker MD Head CT 05/03/16 0000 Signed Impressions: Service Date/Time: Wednesday, May 04, 2016 00:14 - CONCLUSION: Normal examination. Devan Frazier MD Cervical Spine CT 05/03/16 0000 Signed Impressions: Service Date/Time: Wednesday, May 04, 2016 00:14 - CONCLUSION: 1. Degenerative changes without fracture or listhesis. Devan Frazier MD Objective Remarks GENERAL: This is a well-nourished, well-developed patient, in no apparent distress. CARDIOVASCULAR: Regular rate and rhythm without any murmurs RESPIRATORY: Clear to auscultation. Breath sounds equal bilaterally. No wheezes , rales, or rhonchi. GASTROINTESTINAL: Abdomen soft, non-tender, nondistended. Normal active bowel sounds MUSCULOSKELETAL: Extremities without clubbing, cyanosis, or edema. No tenderness to palpation to the lower back. NEURO: Alert & Oriented x4 to person, place, time, situation. Moves all ext x4 patient seems comfortable. Positive straight leg raise. PSYCH: Mood and affect appropriate. Procedures None. Medications and IVs Current Medications Medications (Trade) Dose Ordered Sig/Piedad Route Start Time Stop Time Status Last Admin (NS Flush) 2 ml UNSCH PRN FLUSH 05/04/16 03:30 (NS Flush) 2 ml BID FLUSH 05/04/16 09:00 05/06/16 08:12 (Narcan Inj) 0.4 mg UNSCH PRN IV 05/04/16 03:30 Cyclobenzaprine HCl 10 mg 10 mg TID PO 05/04/16 09:00 05/06/16 11:31 Pharmacy Profile Note 0 ml @ 0 mls/hr UNSCH OTHER 05/04/16 05:00 (Zosyn 4.5 Gm Premix) 100 ml @ 200 mls/hr Q6H IV 05/04/16 05:00 05/06/16 11:31 (Lovenox Inj) 40 mg Q24H SQ 05/04/16 08:00 05/06/16 08:11 Methadone HCl 10 mg 10 mg DAILY PO 05/06/16 09:00 05/06/16 08:12 (Vancomycin Inj/ NS 250 ml Inj) 250 ml @ 250 mls/hr Q8H IV 05/06/16 16:00 Miscellaneous Information SPECIFIC LAB TO BE [facility]... ONCE ONCE XX 05/07/16 07:45 05/07/16 07:46 A/P Problem List: (1) IV drug abuse ICD Code: F19.10 Status: Acute (2) Leukocytosis ICD Code: D72.829 Status: Acute (3) Back pain ICD Code: M54.9 Status: Acute (4) Neck pain ICD Code: M54.2 Status: Acute (5) Head ache ICD Code: R51 Status: Acute (6) Hyponatremia ICD Code: E87.1 Status: Acute Assessment and Plan Back/ neck pain/ headache with a history IV drug abuse MRI of cervical, thoracic, lumbar spine ruled out abscess or any osteomyelitis. MRI showed: Small broad-based left paracentral disc bulge with tiny extruded fragment extending inferiorly at L5-S1; Degenerative disc disease at L5-S1; Mild facet joint hypertrophy bilaterally at L4-5 and L5-S1; Minimal diffuse bulge at L4-5. The pt is asymptomatic except for sciatica at this time. - When necessary Tylenol, NSAIDs and Flexeril as needed for pain. - outpt physical therapy for sciatica. SIRS Presenting elevated heart rate and leukocytosis. Patient with a history of IV drug abuse. Elevated CRP at 1.89, elevated ESR at 29. Echo negative for vegetation. - await final blood cultures which is negative thus far. The pt would like to be discharged and is aware she will be contacted if the blood cultures return positive. - on Zosyn 4.5 g IV every 6 hours and vancomycin IV with pharmacy consult for therapeutic monitoring and dosing. Will d/c antibiotics at discharge. IV drug abuse, Dilaudid Cessation counseling performed, patient states that she is returning to [place] after discharge from the hospital to seek drug rehabilitation treatment. She states that she has successfully completed drug rehabilitation treatment in [place] in the past and understands the importance of follow through and the risks of continued IV drug abuse including endocarditis, septic emboli, . - methadone started to prevent narcotic withdrawal. Hyponatremia Stable. - IV fluid hydration. DVT prophylaxis - Lovenox 40 mg subq daily Discharge Planning D/c home Problem Qualifiers (1) Leukocytosis: Qualified Code: D72.829 - Leukocytosis, unspecified type (2) Back pain: Qualified Code: M54.9 - Other acute back pain (3) Head ache: Qualified Code: R51 - Acute intractable headache, unspecified headache type Nacho Casillas DO May 06, 2016 12:26
--- NOTE | 2016-05-06 12:40 | HHI.DCPOC ---
Discharge Care Plan Diagnosis: (1) Back pain (2) Leukocytosis (3) Neck pain (4) IV drug abuse Goals to Promote Your Health * To prevent worsening of your condition and complications * To maintain your health at the optimal level Directions to Meet Your Goals Take your medications as prescribed Follow your dietary instruction Follow activity as directed Keep your appointments as scheduled Take your immunizations and boosters as scheduled If your symptoms worsen call your PCP, if no PCP go to Urgent Care Center or Emergency Room Smoking is Dangerous to Your Health. Avoid second hand smoke Call the 24-hour hour crisis hotline for domestic abuse at Nacho Casillas DO May 06, 2016 12:40
--- NOTE | 2016-05-06 12:50 | HHI.DS ---
Discharge Summary Admission Date May 04, 2016 at 03:30 Discharge Date: May 06, 2016 Admitting Diagnosis IVDA; leukocytosis; r/o endocarditis vs discitis vs epidural abscess (1) IV drug abuse ICD Code: F19.10 Diagnosis: Principal (2) Leukocytosis ICD Code: D72.829 (3) Back pain ICD Code: M54.9 Diagnosis: Principal (4) Neck pain ICD Code: M54.2 (5) Head ache ICD Code: R51 (6) Hyponatremia ICD Code: E87.1 Procedures None. Brief History - From Admission Ms. Coleman is a 40 -year-old female with a past medical history of IV drug abuse , MRSA leg wound 06/13/13, chronic back pain, anxiety, and depression who presented to the emergency room on 05/03/2016 complaining of worsening neck and back pain accompanied by headache. She states that she had fallen while rollerblading about 5 days prior to her April 28, 2016 ER visit (she came in at that time for neck and back pain also). She states that since that time, she developed fatigue, fever, and worsening stiffness in back and neck accompanied by pain. She also reports accompanying burning pain radiating down her bilateral legs to her knees. Symptoms are severe. The ER physician was concerned about possible paraspinal abscesses. MRI was ordered of cervical, thoracic, lumbar, spine but images could not be obtained because the patient was moving well imaging was in process. The MRI cannot be repeated again until 7 AM 09/01/16. The patient's temperature is 99.2 in the emergency room. WBC is 16.8 with neutrophilia noted. ESR slightly elevated at 29. C-reactive protein elevated at 1.89. Patient was also noted to have hyponatremia with sodium 131 and chloride 92. Lactic acid was within normal parameters a 1.3. CBC/BMP: 05/05/16 0716 05/05/16 0716 Significant Findings Laboratory Tests Test 05/03/16 05/03/16 05/04/16 05/05/16 23:15 23:40 00:45 07:16 Sodium Level 131 MEQ/L 132 MEQ/L (136-145) (136-145) Chloride Level 92 MEQ/L 97 MEQ/L (98-107) (98-107) Estimat Glomerular Filtration 83 ML/MIN (>89) Rate White Blood Count 16.8 TH/MM3 (4.0-11.0) Neutrophils (%) (Auto) 87.4 % 79.0 % (16.0-70.0) (16.0-70.0) Lymphocytes (%) (Auto) 6.4 % (9.0-44.0) Neutrophils # (Auto) 14.6 TH/MM3 (1.8-7.7) Monocytes # (Auto) 1.0 TH/MM3 (0-0.9) Urine Turbidity HAZY (CLEAR) Urine Protein 30 mg/dL (NEG-TRACE) Urine Mucus FEW /lpf (OCC) Erythrocyte Sedimentation Rate 29 mm/hr (0-20) Prothrombin Time 12.1 SEC (9.8-11.6) C-Reactive Protein 1.89 MG/DL (0.00-0.30) Red Blood Count 3.99 MIL/MM3 (4.00-5.30) Hematocrit 34.9 % (35.0-46.0) Calcium Level 8.3 MG/DL (8.5-10.1) Imaging Last Impressions Thoracic Spine MRI 05/04/16 Signed Impressions: Service Date/Time: Wednesday, May 04, 2016 07:34 - CONCLUSION: Negative MRI of the thoracic spine for discitis. Javier Kingston MD FACR Lumbar Spine MRI 05/04/16 Signed Impressions: Service Date/Time: Wednesday, May 04, 2016 07:34 - CONCLUSION: 1. No abnormal enhancement to suggest osteomyelitis within the lumbar spine. 2. Small broad-based left paracentral disc bulge with tiny extruded fragment extending inferiorly at L5-S1. 3. Degenerative disc disease at L5-S1. 4. Mild facet joint hypertrophy bilaterally at L4-5 and L5-S1. 5. Minimal diffuse bulge at L4-5. Jostin Chavira MD Lumbar Spine CT 05/04/16 Signed Impressions: Service Date/Time: Wednesday, May 04, 2016 00:22 - CONCLUSION: Degenerative changes without fracture or listhesis. Devan Frazier MD Cervical Spine MRI 05/04/16 Signed Impressions: Service Date/Time: Wednesday, May 04, 2016 01:34 - CONCLUSION: Mild degenerative changes otherwise negative. Javier Kingston MD FACR Abdomen/Pelvis CT 05/04/16 Signed Impressions: Service Date/Time: Wednesday, May 04, 2016 00:22 - CONCLUSION: Normal examination. Devan Frazier MD Chest X-Ray 05/03/162203 Signed Impressions: Service Date/Time: Tuesday, May 03, 2016 22:20 - CONCLUSION: No acute disease. Red Baker MD Head CT 05/03/16 Signed Impressions: Service Date/Time: Wednesday, May 04, 2016 00:14 - CONCLUSION: Normal examination. Devan Frazier MD Cervical Spine CT 05/03/16 Signed Impressions: Service Date/Time: Wednesday, May 04, 2016 00:14 - CONCLUSION: 1. Degenerative changes without fracture or listhesis. Devan Frazier MD PE at Discharge GENERAL: This is a well-nourished, well-developed patient, in no apparent distress. CARDIOVASCULAR: Regular rate and rhythm without any murmurs RESPIRATORY: Clear to auscultation. Breath sounds equal bilaterally. No wheezes , rales, or rhonchi. GASTROINTESTINAL: Abdomen soft, non-tender, nondistended. Normal active bowel sounds MUSCULOSKELETAL: Extremities without clubbing, cyanosis, or edema. No tenderness to palpation to the lower back. NEURO: Alert & Oriented x4 to person, place, time, situation. Moves all ext x4 patient seems comfortable. Positive straight leg raise. PSYCH: Mood and affect appropriate. Hospital Course Back/ neck pain/ headache with a history IV drug abuse MRI of cervical, thoracic, lumbar spine ruled out abscess or any osteomyelitis. MRI showed: Small broad-based left paracentral disc bulge with tiny extruded fragment extending inferiorly at L5-S1; Degenerative disc disease at L5-S1; Mild facet joint hypertrophy bilaterally at L4-5 and L5-S1; Minimal diffuse bulge at L4-5. The pt is asymptomatic except for sciatica at this time. She will have When Tylenol, NSAIDs and Flexeril as needed for pain. She will be referred to outpt physical therapy for sciatica. She will follow up with her PCP. SIRS Presenting elevated heart rate and leukocytosis. Patient with a history of IV drug abuse. Elevated CRP at 1.89, elevated ESR at 29. Echo negative for vegetation. Blood cultures negative so far. The pt would like to be discharged and is aware she will be contacted if the blood cultures return positive. She was placed on Zosyn 4.5 g IV every 6 hours and vancomycin IV while in the hospital, which will be discontinued at the time of discharge. IV drug abuse, Dilaudid Cessation counseling performed, patient states that she is returning to [place] after discharge from the hospital to seek drug rehabilitation treatment. She states that she has successfully completed drug rehabilitation treatment in [place] in the past and understands the importance of follow through and the risks of continued IV drug abuse including endocarditis, septic emboli, . Methadone was started to prevent narcotic withdrawal. Pt Condition on Discharge: Stable Discharge Disposition: Discharge Home Discharge Time: > 30 minutes Discharge Instructions DIET: Follow Instructions for: As Tolerated, No Restrictions Activities you can perform: Weight Bearing as Mateusz Follow up Referrals: PCP Follow-up - 1 Week New Orders: Physical Therapy - 3-5 Days Continued Medications: Cyclobenzaprine (Flexeril) 10 Mg Tab 10 MG PO TID Muscle Spasm #[address] (Diclofenac Sodium DR) 50 Mg Tabdr 50 MG PO TID #21 TAB Nacho Casillas DO May 06, 2016 12:50
[2016-05-06] MEDS ORDERED: VANCOMYCIN 1,000 MG/NS 250 ML IV SCH ×2 (16:00)
[2016-05-07] MEDS ORDERED: PHARMACY ORDERED LAB XX ONE (07:45)
== END 2016-05-06 15:07 | disposition home or self-care (01) | DRG 552 ==
LOC: NEPB 19:50 → OBSVTOIN 05-04 03:30 → NEDA 05-04 03:30 → N05B 05-04 19:34
PROVIDERS: ADMIT Hospitalist; ATTEND Hospitalist
PROC: 05HY33Z Insertion of Infusion Device into Upper Vein, Percutaneous Approach (ICD-10-PCS; principal; 2016-05-04)
DX: M51.17 Intervertebral disc disorders with radiculopathy, lumbosacral region (principal); E87.1 Hypo-osmolality and hyponatremia; R50.9 Fever, unspecified; M54.2 Cervicalgia; F32.9 Major depressive disorder, single episode, unspecified; F41.9 Anxiety disorder, unspecified; V00.111A Fall from in-line roller-skates, initial encounter; Y93.51 Activity, roller skating (inline) and skateboarding; F17.210 Nicotine dependence, cigarettes, uncomplicated; F11.10 Opioid abuse, uncomplicated; Z88.1 Allergy status to other antibiotic agents; D72.829 Elevated white blood cell count, unspecified; R51 Headache; Z86.14 Personal history of Methicillin resistant Staphylococcus aureus infection; Z85.820 Personal history of malignant melanoma of skin; Z85.828 Personal history of other malignant neoplasm of skin
CPT/HCPCS: 70450; 71010; 72125; 72131; 72156; 72157; 72158; 74177; 80048; 80202; 81001; 83605; 84703; 85025; 85610; 85652; 85730; 86140; 87040; 87804; 93306; A9579; J1650; J2543; J3370; J7030; J7050; Q9967

== ENCOUNTER 2016-12-31 20:18 | Emergency (ER) | payer SELFPAY ==
[~2016-12-31] VITALS: Ht 160 cm; Wt 50.0 kg
[2016-12-31 20:19] VITALS: BP 157/104; PULSE 88; RESP 16; TEMP 98.9; O2SAT 97
[2016-12-31] MEDS ORDERED: PERM5CRE11 TOPICAL (21:19)
--- NOTE | 2016-12-31 21:25 | PD ---
HPI Chief Complaint: GI Complaint Time Seen by Provider: 21:14 Travel History International Travel<30 days: No Contact w/Intl Traveler<30days: No Traveled to known affect area: No History of Present Illness HPI This patient was examined in the presence of female nurse. 41-year-old female with history of IV heroin abuse presents for evaluation of rash. Symptoms started 2 weeks ago. She reports a pruritic rash on her face, extremities, torso. She admits that she has been picking at her rash quite consistently because it is itchy. She reports that her roommates have similar rash and they all recently moved into their current residence in November of this year. She is concerned that she may have a tapeworm infestation that is causing her rash- she also reports that she saw what looked like a "red worm" in her stool recently. She denies fevers, chills, abdominal pain. Her last menstrual period was in September. She has no other complaints at this time. PFSH Past Medical History Arthritis: No Asthma: No Autoimmune Disease: No Blood Disorders: No Anxiety: Yes Depression: Yes Heart Rhythm Problems: No Cancer: No Cardiovascular Problems: Yes High Cholesterol: No Chest Pain: No Congestive Heart Failure: No COPD: No Cerebrovascular Accident: No Diabetes: No Diminished Hearing: No Endocrine: No Gastrointestinal Disorders: No GERD: No Genitourinary: No Headaches: No Hiatal Hernia: No Immune Disorder: No Implanted Vascular Access Dvce: No Kidney Stones: No Musculoskeletal: No Neurologic: No Psychiatric: Yes Reproductive: No Respiratory: No Migraines: No Renal Failure: No Seizures: No Sickle Cell Disease: No Sleep Apnea: No Thyroid Disease: No Ulcer: No ?: Not Menopausal: No : 4 Para: 2 Miscarriage: 0 : 2 Tubal Ligation: Yes Past Surgical History Abdominal Surgery: Yes AICD: No Arteriovenous Shunt: No Cardiac Surgery: No Ear Surgery: No Endocrine Surgery: No Eye Surgery: No Genitourinary Surgery: No Gynecologic Surgery: Yes Insulin Pump: No Joint Replacement: No Oral Surgery: No Pacemaker: No Thoracic Surgery: No Other Surgery: Yes (tubal, laproscopy) Social History Alcohol Use: No Tobacco Use: No Substance Use: No ( HX OF DILAUDID IV) Allergies-Medications (Allergen,Severity, Reaction): Coded Allergies: ciprofloxacin (Unverified Allergy, Severe, TREMORS AND SOB, 12/31/16) *MDRO Multi-Drug Resistant Organism (Verified Adverse Reaction, Unknown, 12/31/16) 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 Reported Meds & Prescriptions Reported Meds & Active Scripts Active Elimite Topical (Permethrin) 5% Cream 1 Applic TOPICAL ONCE Review of Systems Except as stated in HPI: all other systems reviewed are Neg Physical Exam Narrative GENERAL: Disheveled appearing female who is in no acute distress. Her vital signs reviewed. SKIN: Warm and dry. Multiple excoriated lesions are noted on the face, torso and extremities. No petechiae, no vesicles, no pustules, no erythema, no drainage, no induration. Tract ha noted on the forearms. HEAD: Atraumatic. Normocephalic. EYES: Pupils equal and round. No scleral icterus. No injection or drainage. ENT: No nasal bleeding or discharge. Mucous membranes pink and moist. NECK: Trachea midline. No JVD. CARDIOVASCULAR: Regular rate and rhythm. No murmur appreciated. RESPIRATORY: No accessory muscle use. Clear to auscultation. Breath sounds equal bilaterally. GASTROINTESTINAL: Abdomen soft, non-tender, nondistended. Hepatic and splenic margins not palpable. MUSCULOSKELETAL: No obvious deformities. No clubbing. No cyanosis. No edema. NEUROLOGICAL: Awake and alert. No obvious cranial nerve deficits. Motor grossly within normal limits. Normal speech. PSYCHIATRIC: Appropriate mood and affect; insight and judgment normal. Data Data Last Documented VS Vital Signs Date Time Temp Pulse Resp B/P (MAP) Pulse Ox O2 Delivery O2 Flow Rate FiO2 12/31/16 20:19 98.9 88 16 157/104 (121) 97 Room Air Orders Orders Stool Ova And Parasite Screen (12/31/16 21:15) Ed Urine Pregnancytest Poc (12/31/16 21:15) MDM Medical Decision Making Medical Screen Exam Complete: Yes Emergency Medical Condition: Yes Medical Record Reviewed: Yes Differential Diagnosis Scabies, skin picking disorder, psychogenic parasitosis, cellulitis Narrative Course The patient appears to have an excoriated pruritic skin rash which given the history of recent change in living environment and remains having similar rash, most likely is a house infestation with scabies or some other infestation. Plan at this time would be to recommend the patient quit picking at her skin to avoid secondary bacterial infection. She'll be discharged with permethrin cream. Given her concern for parasitic gastrointestinal and the station, stool ova and parasites testing has been ordered as well. These results will not be back tonight. Urine test was negative. 2230: The patient has been in the ED for over 2 hours and has been unable to produce a stool sample. The patient would like to go home and does not want to wait because she does not think that she' ll make a bowel movement anytime soon. She is encouraged to follow-up with primary care physician for outpatient ova and parasite testing if she desires. Diagnosis Primary Impression: Excoriated rash Additional Instructions: Quit picking at the skin. Keep the lesions clean with soap and water. Use the cream as prescribed. Take Benadryl as needed for itching. Follow-up with primary care physician. Return for any emergent medical conditions. Med/Other Pt SpecificInfo: Prescription(s) given Scripts Permethrin Topical (Elimite Topical) 5% Cream 1 APPLIC TOPICAL ONCE for Scabies, #1 TUBE 1 Refill Prov: Veda Ennis MD 12/31/16 Disposition: 01 DISCHARGE HOME Condition: Stable Per Mora Dec 31, 2016 21:25
== END 2016-12-31 22:50 | disposition home or self-care (01) ==
LOC: NEPE 20:18
DX: R21 Rash and other nonspecific skin eruption (principal)
CPT/HCPCS: 84703; 99283

== ENCOUNTER 2017-02-27 22:22 | Inpatient (IN) | payer SELFPAY ==
[~2017-02-27] VITALS: Ht 160 cm; Wt 55.3 kg
[~2017-02-27 22:22] MED LIST changes: -CYCL1TAB29 PO; -DICL50TA3 PO; +PERM5CRE11 TOPICAL
[2017-02-27 22:27] VITALS: BP 131/64; PULSE 114; RESP 16; TEMP 99.9; O2SAT 99
[2017-02-28] VITALS (21 sets, daily range): BP systolic 84–129; BP diastolic 42–89; PULSE 75–131; RESP 16–42; TEMP 98.1–103.1; O2SAT 95–100
--- NOTE | 2017-02-28 00:08 | PD ---
HPI Chief Complaint: Edema Time Seen by Provider: 23:43 Travel History International Travel<30 days: No Contact w/Intl Traveler<30days: No Traveled to known affect area: No History of Present Illness HPI The patient is a 41 year old female who presents to the [facility] emergency department with a history of reportedly not feeling well since 4 days before . She reports that one of her friends was diagnosed with a parasite and she was concerned that she may have it so her boyfriend's father who is the conversion developer prescribed her Ivermectin. She reports that no testing was done to confirm a parasitic infection. She reports that since then she still all full. She reports that she's had intermittent nausea, vomiting, and diarrhea. She reports that the diarrhea did improve 3 days ago and she finally did have one solid stool. She reports that she's continued to have nausea and vomiting 2-3 times per day. She reports that she's had a 12 pound weight loss. She reports that she's had fevers, however she is unsure how high as she has not checked her temperature. She reports that she's had intermittent chest pain and shortness of breath. The patient reports that over the last week she is also noticed that she's developed lower extremity edema. The patient reports a history of IV drug use of Roxicodone. She denies having any known history of HIV or hepatitis C. She reports that she was last tested for these illnesses a year ago. LMP: She cannot recall her last menstrual cycle. She reports that she does not have regular cycles due to her low weight. [facility] Past Medical History Narrative Medical The patient's past medical history is significant for hypertension, anxiety and depression, history of IV drug use Arthritis: No Asthma: No Autoimmune Disease: No Blood Disorders: No Anxiety: Yes Depression: Yes Heart Rhythm Problems: No Cancer: No Cardiovascular Problems: Yes High Cholesterol: No Chest Pain: No Congestive Heart Failure: No COPD: No Cerebrovascular Accident: No Diabetes: No Diminished Hearing: No Endocrine: No Gastrointestinal Disorders: No GERD: No Genitourinary: No Headaches: No Hiatal Hernia: No Hypertension: Yes Immune Disorder: No Implanted Vascular Access Dvce: No Kidney Stones: No Musculoskeletal: No Neurologic: No Psychiatric: Yes Reproductive: No Respiratory: No Migraines: No Renal Failure: No Seizures: No Sickle Cell Disease: No Sleep Apnea: No Thyroid Disease: No Ulcer: No Tetanus Vaccination: < 5 Years Influenza Vaccination: No ?: Not LMP: 6 MONTHS AGO Menopausal: No : 4 Para: 2 Miscarriage: 0 : 2 Tubal Ligation: Yes Past Surgical History Narrative Surgical The patient's past surgical history is significant for laparoscopy, bilateral tubal ligation. Abdominal Surgery: Yes AICD: No Arteriovenous Shunt: No Cardiac Surgery: No Ear Surgery: No Endocrine Surgery: No Eye Surgery: No Genitourinary Surgery: No Gynecologic Surgery: Yes Insulin Pump: No Joint Replacement: No Oral Surgery: No Pacemaker: No Thoracic Surgery: No Other Surgery: Yes (tubal, laproscopy) Social History Alcohol Use: No Tobacco Use: No Substance Use: Yes (oxycodone use) Allergies-Medications (Allergen,Severity, Reaction): Coded Allergies: ciprofloxacin (Unverified Allergy, Severe, TREMORS AND SOB, 02/27/17) *MDRO Multi-Drug Resistant Organism (Verified Adverse Reaction, Unknown, 02/27/17) 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 Reported Meds & Prescriptions Reported Meds & Active Scripts Active No Active Prescriptions or Reported Medications Review of Systems Except as stated in HPI: all other systems reviewed are Neg General / Constitutional: Positive: Fever Eyes: No: Visual changes HENT: Positive: Rhinorrhea, Congestion, No: Headaches Cardiovascular: Positive: Chest Pain or Discomfort, Dyspnea on exertion Respiratory: No: Shortness of Breath Gastrointestinal: Positive: Nausea, Vomiting, Diarrhea, Abdominal Pain, Changes in Bowel Habits, Loss of Appetite, No: Hematemesis, Hematochezia, Indigestion Genitourinary: No: Dysuria Musculoskeletal: No: Pain Skin: No Rash Neurologic: Positive: Weakness (generalized weakness), No: Focal Abnormalities , Change in Mentation, Slurred Speech, Sensory Disturbance Psychiatric: No: Depression Endocrine: No: Polydipsia Hematologic/Lymphatic: No: Easy Bruising Physical Exam Narrative General: The patient is a well-developed cachectic appearing female in no acute distress. Head and Neck exam: Head is normocephalic atraumatic. Eyes: EOMI, pupils are equal round and reactive to light. Nose: Midline septum with pink mucous membranes Mouth: Dentition unremarkable. Moist mucus membranes with patchy spots on the mucosa on the tongue as well as in the buccal mucosa consistent with thrush. Posterior oropharynx is not erythematous. No tonsillar hypertrophy. Uvula midline. Airway patent. Neck: No palpable lymphadenopathy. No nuchal rigidity. No thyromegaly. Cardiovascular: Sinus tachycardia in the 1 teens without murmurs, gallops, or rubs. No pulse deficit to the extremities on simultaneous auscultation and palpation of her radial artery. Lungs: Clear to auscultation bilaterally. No wheezes, rhonchi, or rales. Abdomen: Soft, with reported discomfort on palpation of the midepigastric area and bilateral upper quadrants of the abdomen, no other tenderness on palpation of the other quadrants of the abdomen. No guarding, rebound, or rigidity. Normal bowel sounds are audible. No tenderness on palpation of McBurney's point. Negative Sandoval's sign. Extremities: No clubbing or cyanosis. The patient has 1+ pitting edema bilateral lower extremities. 2+ pulses in all 4 extremities. No calf tenderness on palpation. Back: No spinous process tenderness to palpation. No costovertebral angle tenderness to palpation. Neurologic Exam: Grossly nonfocal. Skin Exam: No rash noted. Intact skin that is warm and dry. Data Data Last Documented VS Vital Signs Date Time Temp Pulse Resp B/P (MAP) Pulse Ox O2 Delivery O2 Flow Rate FiO2 02/28/17 00:53 18 95 Room Air 02/27/17 22:27 99.9 114 Orders Orders Electrocardiogram (02/27/17 23:55) Complete Blood Count With Diff (02/27/17 23:55) Comprehensive Metabolic Panel (02/27/17 23:55) Creatine Kinase (Cpk) (02/27/17 23:55) Ckmb (Isoenzyme) Profile (02/27/17 23:55) Troponin I (02/27/17 23:55) B-Type Natriuretic Peptide (02/27/17 23:55) Prothrombin Time / Inr (Pt) (02/27/17 23:55) Act Partial Throm Time (Ptt) (02/27/17 23:55) Lipase (02/27/17 23:55) Urinalysis - C+S If Indicated (02/27/17 23:55) Westergren Sedimentation Rate (02/27/17 23:55) Magnesium (Mg) (02/27/17 23:55) Thyroid Stimulating Hormone (02/27/17 23:55) Chest, Single Ap (02/27/17 23:55) Iv Access Insert/Monitor (02/27/17 23:55) Ecg Monitoring (02/27/17 23:55) Oximetry (02/27/17 23:55) Ed Urine Pregnancytest Poc (02/27/17 23:55) Blood Culture (02/27/17 23:55) Lactic Acid Sepsis Protocol (02/27/17 23:55) Us Leg Venous Doppler Bilat (02/28/17 23:55) Piperacil-Tazo 3.375 Gm Premix (Zosyn 3. (02/28/17 01:15) Vancomycin Inj (Vancomycin Inj) (02/28/17 01:15) Sodium Chlor 0.9% 1000 Ml Inj (Ns 1000 M (02/28/17 01:40) Sodium Chlor 0.9% 1000 Ml Inj (Ns 1000 M (02/28/17 01:40) Admit Order (Ed Use Only) (02/28/17 01:49) Labs Laboratory Tests Test 02/27/17 23:55 02/28/17 00:10 02/28/17 00:30 Lactic Acid Level 2.4 mmol/L Urine Color YELLOW Urine Turbidity HAZY Urine pH 5.5 Urine Specific [place] 1.018 Urine Protein 30 mg/dL Urine Glucose (UA) NEG mg/dL Urine Ketones NEG mg/dL Urine Occult Blood MOD Urine Nitrite NEG Urine Bilirubin NEG Urine Urobilinogen LESS THAN 2.0 MG/DL Urine Leukocyte Esterase NEG Urine RBC 3 /hpf Urine WBC 4 /hpf Urine Squamous Epithelial Cells 9 /hpf Urine Hyaline Casts 13 /lpf Urine Granular Casts 4 /lpf Urine Mucus FEW /lpf Microscopic Urinalysis Comment CULT NOT INDICATED White Blood Count 13.9 TH/MM3 Red Blood Count 2.81 MIL/MM3 Hemoglobin 8.1 GM/DL Hematocrit 23.5 % Mean Corpuscular Volume 83.8 FL Mean Corpuscular Hemoglobin 28.9 PG Mean Corpuscular Hemoglobin Concent 34.5 % Red Cell Distribution Width 14.6 % Platelet Count 221 TH/MM3 Mean Platelet Volume 7.6 FL Neutrophils (%) (Auto) 87.7 % Lymphocytes (%) (Auto) 7.8 % Monocytes (%) (Auto) 4.0 % Eosinophils (%) (Auto) 0.2 % Basophils (%) (Auto) 0.3 % Neutrophils # (Auto) 12.2 TH/MM3 Lymphocytes # (Auto) 1.1 TH/MM3 Monocytes # (Auto) 0.6 TH/MM3 Eosinophils # (Auto) 0.0 TH/MM3 Basophils # (Auto) 0.0 TH/MM3 CBC Comment DIFF FINAL Differential Comment Erythrocyte Sedimentation Rate GREATER THAN 140 mm/hr Prothrombin Time 13.9 SEC Prothromb Time International Ratio 1.4 RATIO Activated Partial Thromboplast Time 30.2 SEC Blood Urea Nitrogen 16 MG/DL Creatinine 1.08 MG/DL Random Glucose 82 MG/DL Total Protein 8.2 GM/DL Albumin 2.3 GM/DL Calcium Level 8.4 MG/DL Magnesium Level 1.8 MG/DL Alkaline Phosphatase 153 U/L Aspartate Amino Transf (AST/SGOT) 77 U/L Alanine Aminotransferase (ALT/SGPT) 93 U/L Total Bilirubin 0.5 MG/DL Sodium Level 122 MEQ/L Potassium Level 4.0 MEQ/L Chloride Level 88 MEQ/L Carbon Dioxide Level 25.1 MEQ/L Anion Gap 9 MEQ/L Estimat Glomerular Filtration Rate 56 ML/MIN Total Creatine Kinase 67 U/L Troponin I LESS THAN 0.02 NG/ML B-Type Natriuretic Peptide 54 PG/ML Lipase 60 U/L Thyroid Stimulating Hormone 3rd Gen 1.180 uIU/ML MDM Medical Decision Making Medical Screen Exam Complete: Yes Emergency Medical Condition: Yes Medical Record Reviewed: Yes Interpretation(s) Last Impressions Chest X-Ray 02/27/17 [id number] Signed Impressions: Service Date/Time: Tuesday, February 28, 2017 00:23 - CONCLUSION: Midinspiratory study with crowding of the lung vasculature and new opacity at the lung bases right greater than left. This could represent early pneumonia. Nacho Brian MD Differential Diagnosis Pneumonia, versus endocarditis, versus bacteremia related to IV drug use, versus pyelonephritis Narrative Course During the course of the patients emergency department visit, the patients history, examination, and differential diagnosis were reviewed with the patient. The patient was placed on a court monitor with oximetry and frequent blood pressure monitoring. The patient had IV access obtained and blood work sent for analysis. Blood cultures 2 were drawn, lactic acid was sent. The patient was initially provided Zosyn and vancomycin IV, normal saline a 30 mL per KG bolus when she meant sepsis criteria. The patients laboratory studies were reviewed and remarkable for a white count of 13.9, hemoglobin 8.1, platelets 221 with 87.8 neutrophils, sedimentation rate is greater than 140, CMP is remarkable for a sodium of 122, chloride 88, creatinine 1.08, AST 77, ALT 93, alkaline phosphatase 153, cardiac enzymes within normal limits, BNP 54, lipase 60, TSH 1.18, lactic acid 2.4, PTT 13.9, INR 1.4, PTT 30.2 Radiology studies were reviewed and remarkable for a chest x-ray that shows a mid inspiratory study with crowding of the lung vasculature and new opacity at the lung bases right greater than the left which could represent early pneumonia. Ultrasound of bilateral lower extremities is negative for DVT. The patients results were discussed with the patient, including the plan of care. I explained that further testing and/ or monitoring is indicated based on the patients history, examination, and/ or laboratory findings. Therefore, I recommended admission for additional evaluation. The patient expressed understanding and was agreeable with this plan. The patient was admitted to the hospital in guarded condition and sent to a bed under the care of [facility] service. Critical Care Narrative Aggregate critical care time was 33 minutes. Time to perform other separately billable procedures was not included in the critical care time. My time did not include minutes spent treating any other patients simultaneously or on activities that did not directly contribute to the patient's treatment. The services I provided to this patient were to treat and/or prevent clinically significant deterioration that could result in: Cardiovascular collapse related to sepsis, versus fluid overload from over resuscitation, versus electrolyte derangements I provided critical care services requiring my management, as noted below: Chart data review, documentation time, medication orders and management, vital sign assessments/reviewing monitor data, ordering and reviewing lab tests, ordering and interpreting/reviewing x-rays and diagnostic studies, care of the patient and discussion of the patient with the admitting physicians. Sepsis Criteria SIRS Criteria (2 or more): Heart rate over 90, WBC > 03058, < 4000 or > 10% bands Sepsis Criteria (SIRS+source): Infect source susp/known Severe Sepsis (+one): Lactate >2 Criteria Outcome: Meets SIRS criteria, Meets sepsis criteria, Meets severe sepsis criteria Physician Communication Physician Communication The patient's case including history, pertinent physical examination findings, and laboratory studies were discussed with Dr. Rodriguez. It was agreed that the patient would be admitted to the [facility] service. Diagnosis Primary Impression: Pneumonia Qualified Codes: J18.9 - Pneumonia, unspecified organism Additional Impressions: Sepsis Qualified Codes: A41.9 - Sepsis, unspecified organism IV drug user Admitting Information Admitting Physician Requests: Admit Scripts No Active Prescriptions or Reported Meds Winsome Quinonez MD Feb 28, 2017 00:08
[2017-02-28 00:31] LABS: BLOOD, URINE MOD (NEG); COMMENT (UR) CULT NOT INDICATED; CULTURE IF INDICATED CULT NOT INDICATED; GLUCOSE,URINE NEG (NEG); GRANULAR CAST, URINE 4 /lpf; HYALINE CAST, URINE 13 /lpf (RARE); KETONE, URINE NEG (NEG); MUCUS URINE FEW /lpf (OCC); NITRITE,URINE NEG (NEG); PH, URINE 5.5 (5.0-8.5); SQUAMOUS EPITHELIAL CELL URINE 9 /hpf (0-5); URINE COLOR YELLOW (YELLW/STRAW)
--- NOTE | 2017-02-28 00:46 | RADRPT ---
EXAM DATE/TIME: 02/28/2017 00:23 [facility] COMPARISON: CHEST SINGLE AP, May 03, 2016, 22:20. INDICATIONS : Shortness of breath. MEDICAL HISTORY : None. SURGICAL HISTORY : None. ENCOUNTER: Initial ACUITY: 1 day PAIN SCORE: 0/10 LOCATION: Bilateral chest FINDINGS: A single AP erect portable view of the chest was obtained and demonstrates new patchy infiltrate at t he lung bases right greater than left. The study is more Midinspiratory than on the prior study. The heart size remains within normal limits and there is no effusion. The bony thorax is intact. There is overlying artifact. CONCLUSION: Midinspiratory study with crowding of the lung vasculature and new opacity at the lung bases right gr eater than left. This could represent early pneumonia. Nacho Brian MD on February 28, 2017 at 0:42 Board Certified Radiologist. This report was verified electronically.
[2017-02-28 01:01] LABS: AUTOMATED NEUTROPHIL # 12.2 TH/MM3 (1.8-7.7); BASOPHIL % 0.3 % (0.0-2.0); EOSINOPHIL % 0.2 % (0.0-4.0); HEMATOCRIT 23.5 % (35.0-46.0); HEMO FLAGS DIFF FINAL; LYMPH % 7.8 % (9.0-44.0); LYMPHOCYTE # 1.1 TH/MM3 (1.0-4.8); MEAN CELL VOLUME 83.8 FL (80.0-100.0); MEAN CORPUSCULAR HEMOGLOBIN 28.9 PG (27.0-34.0); MEAN CORPUSCULAR HGB CONC 34.5 % (32.0-36.0); NEUT % 87.7 % (16.0-70.0); PLATELET COUNT 221 TH/MM3 (150-450); RED BLOOD COUNT 2.81 MIL/MM3 (4.00-5.30); RED CELL DISTRIBUTION WIDTH 14.6 % (11.6-17.2); WHITE BLOOD COUNT 13.9 TH/MM3 (4.0-11.0)
[2017-02-28] MEDS ORDERED: VANCOMYCIN INJ 1,000 MG in SODIUM CHLOR 0.9% 250 ML INJ 250 ML IV ONE (01:15)
[2017-02-28] MEDS ORDERED: PIPERACIL-TAZO 3.375 GM PREMIX 50 ML IV SCH (01:15)
[2017-02-28 01:17] LABS: APTT (PATIENT) 30.2 SEC (24.3-30.1); INTERNATIONAL NORMALIZED RATIO 1.4 RATIO; PROTHROMBIN TIME - PATIENT 13.9 SEC (9.8-11.6)
[2017-02-28 01:25] LABS: ALKALINE PHOSPHATASE 153 U/L (45-117); ALT (GPT) 93 U/L (10-53); ANION GAP 9 MEQ/L (5-15); AST (GOT) 77 U/L (15-37); BICARBONATE 25.1 MEQ/L (21.0-32.0); BLOOD UREA NITROGEN 16 MG/DL (7-18); CHLORIDE 88 MEQ/L (98-107); CREATINE KINASE 67 U/L (26-192); GLOMERULAR FILTRATION RATE 56 ML/MIN (>89); MAGNESIUM 1.8 MG/DL (1.5-2.5); TOTAL BILIRUBIN ADULT 0.5 MG/DL (0.2-1.0)
[2017-02-28 01:26] LABS: SODIUM (NA) 122 MEQ/L (136-145)
[2017-02-28] MEDS ORDERED: SODIUM CHLOR 0.9% 1000 ML INJ 1,000 ML IV ONE ×2 (01:40→05:00)
[2017-02-28] MEDS ORDERED: SODIUM CHLOR 0.9% 1000 ML INJ 800 ML IV ONE (01:40)
--- NOTE | 2017-02-28 01:40 | RADRPT ---
EXAM DATE/TIME: 02/28/2017 00:53 [facility] COMPARISON: No previous studies available for comparison. INDICATIONS : Bilateral leg pain. MEDICAL HISTORY : Hypertension. IV substance use. MRSA. SURGICAL HISTORY : Tubal ligation. Laparoscopy. ENCOUNTER: Initial ACUITY: 1 day PAIN SCORE: 0/10 LOCATION: Bilateral legs. . COMPRESSIBLE? DISTAL AUGMENTATION? TECHNIQUE: Venous ultrasound of the left and right leg was performed from the inguinal ligament to the proximal calf. Real-time, color Doppler and spectral tracing, compression and augmentation techniques were us ed. FINDINGS: RIGHT LEG: There is normal compressibility of the deep venous system from the inguinal region to the proximal ca lf. No echogenic clot is seen in the lumen of the common femoral, femoral, popliteal, and posterior tibial veins. There is a normal response of the venous system to proximal and distal augmentation an d respiration. LEFT LEG: There is normal compressibility of the deep venous system from the inguinal region to the proximal ca lf. No echogenic clot is seen in the lumen of the common femoral, femoral, popliteal, and posterior tibial veins. There is a normal response of the venous system to proximal and distal augmentation an d respiration. CONCLUSION: Negative exam with no evidence of deep venous thrombosis. Nacho Brian MD on February 28, 2017 at 1:38 Board Certified Radiologist. This report was verified electronically.
[2017-02-28] MEDS ORDERED: NALOXONE HCL 0.4 MG/ML AMP IV PUSH PRN (02:00)
[2017-02-28] MEDS ORDERED: SODIUM CHLORIDE 0.9% FLUSH 10 ML FLUSH IV FLUSH PRN (02:00)
[2017-02-28] MEDS ORDERED: Vancomycin Consult Pharmacy 1 EA OTHER SCH (02:15)
[2017-02-28 03:09] LABS: LACTIC ACID GHOST NOT REPORTABLE
[2017-02-28 05:23] LABS: BLOOD GAS BASE EXCESS 1.6 mmol/L (-2-2); BLOOD GAS CARBOXYHEMOGLOBIN 2.5 % (0-4); BLOOD GAS HCO3 25 mmol/L (22-26); BLOOD GAS METHEMOGLOBIN 0.5 % (0-2); BLOOD GAS O2 HGB SATURATION 94 % (90-100); BLOOD GAS OXYGEN CONTENT 9.3 Vol % (12.0-20.0); BLOOD GAS PCO2 33 mmHg (38-42); BLOOD GAS PO2 81 mmHG (61-120); BLOOD GAS TOTAL HGB 6.9 G/DL (12.0-16.0)
[2017-02-28 05:24] LABS: CRITICAL VALUE YES; DRAW SITE RT RADIAL; LITER FLOW 2 L/M; NUMBER OF ARTERIAL PUNCTURES 1; OXYGEN DEVICE NASAL CANNULA; STAT NO; ULNAR PULSE PRESENT
--- NOTE | 2017-02-28 05:59 | HHI.HP ---
[facility] Primary Care Physician No Primary Care Physician Admission Diagnosis Pneumonia, Sepsis, h/o IVDU r/o endocarditis Diagnoses: Travel History International Travel<30 Days: No Contact w/Intl Traveler <30 Da: No Traveled to Known Affected Are: No History of Present Illness has been having fever for couple of weeks no cough johana blood in cough vomiting and diarrhea for last few weeks lost 12lbsin past few weeks took a pill for parasite - got it on the street because everyone in the house has parasite and the josé who is a roommate has bacteria infection ivernectin in pill form for 5 days- gave her diarrhea and got real sick roommate was in hospital for 5 days and was treated with ivernectin today finally came because her friend brought her and promised her he would take care of her dog while she is in hospital no blood in stool or blood in urine left hip pain occasional right shoulder pain- now gone iv drug abuse- bayron- last use was today before she came in Past Family Social History Past Medical History 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, s/p surgery Past Surgical History skin cancer removal laparotomy tubal ligation Allergies: Coded Allergies: ciprofloxacin (Unverified Allergy, Severe, TREMORS AND SOB, 02/27/17) *MDRO Multi-Drug Resistant Organism (Verified Adverse Reaction, Unknown, 02/27/17) 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 Family History mom - at 54 yo from tumors in lungs, with mets to brain Social History smokes a pack a day no etoh abuse uses iv bayron drugs Physical Exam Vital Signs Vital Signs Date Time Temp Pulse Resp B/P (MAP) Pulse Ox O2 Delivery O2 Flow Rate FiO2 02/28/17 05:24 97 Nasal Cannula 2.00 02/28/17 04:46 103.1 105 17 95/50 (65) 96 02/28/17 04:07 02/28/17 01:53 107 18 124/68 (86) 99 Room Air 02/28/17 00:53 18 95 Room Air 02/27/17 22:27 99.9 114 16 131/64 (86) 99 Physical Exam GENERAL: This is a thin lady, in moderate distress from pain, looks puffy, with generalized swelling, moaning in pain SKIN: No rashes, ecchymoses or lesions. Cool and dry. HEAD: Atraumatic. Normocephalic. No temporal or scalp tenderness. EYES: No scleral icterus. No injection or drainage. ENT: Nose without bleeding, purulent drainage or septal hematoma. . Airway patent. NECK: Trachea midline. No JVD Supple, nontender, no meningeal signs. CARDIOVASCULAR: Regular rate and rhythm without murmurs, gallops, or rubs. RESPIRATORY: Clear to auscultation. Breath sounds equal bilaterally. No wheezes , rales, or rhonchi. GASTROINTESTINAL: Abdomen soft, non-tender, nondistended. No guarding. MUSCULOSKELETAL: Extremities without clubbing, cyanosis No calf tenderness. bilateral 2+ pitting edema up to thigh NEUROLOGICAL: Awake and alert. Motor and sensory grossly within normal limits. Five out of 5 muscle strength in all muscle groups. Normal speech. Laboratory Laboratory Tests Test 02/27/17 23:55 02/28/17 00:10 02/28/17 00:30 02/28/17 04:10 Lactic Acid Level 2.4 Urine Color YELLOW Urine Turbidity HAZY Urine pH 5.5 Urine Specific [place] 1.018 Urine Protein 30 Urine Glucose (UA) NEG Urine Ketones NEG Urine Occult Blood MOD Urine Nitrite NEG Urine Bilirubin NEG Urine Urobilinogen LESS THAN 2.0 Urine Leukocyte Esterase NEG Urine RBC 3 Urine WBC 4 Urine Squamous Epithelial Cells 9 Urine Hyaline Casts 13 Urine Granular Casts 4 Urine Mucus FEW Microscopic Urinalysis Comment CULT NOT INDICATED White Blood Count 13.9 Red Blood Count 2.81 Hemoglobin 8.1 Hematocrit 23.5 Mean Corpuscular Volume 83.8 Mean Corpuscular Hemoglobin 28.9 Mean Corpuscular Hemoglobin Concent 34.5 Red Cell Distribution Width 14.6 Platelet Count 221 Mean Platelet Volume 7.6 Neutrophils (%) (Auto) 87.7 Lymphocytes (%) (Auto) 7.8 Monocytes (%) (Auto) 4.0 Eosinophils (%) (Auto) 0.2 Basophils (%) (Auto) 0.3 Neutrophils # (Auto) 12.2 Lymphocytes # (Auto) 1.1 Monocytes # (Auto) 0.6 Eosinophils # (Auto) 0.0 Basophils # (Auto) 0.0 CBC Comment DIFF FINAL Differential Comment Erythrocyte Sedimentation Rate GREATER THAN 140 Prothrombin Time 13.9 Prothromb Time International Ratio 1.4 Activated Partial Thromboplast Time 30.2 Blood Urea Nitrogen 16 Creatinine 1.08 Random Glucose 82 Total Protein 8.2 Albumin 2.3 Calcium Level 8.4 Magnesium Level 1.8 Alkaline Phosphatase 153 Aspartate Amino Transf (AST/SGOT) 77 Alanine Aminotransferase (ALT/SGPT) 93 Total Bilirubin 0.5 Sodium Level 122 Potassium Level 4.0 Chloride Level 88 Carbon Dioxide Level 25.1 Anion Gap 9 Estimat Glomerular Filtration Rate 56 Total Creatine Kinase 67 Troponin I LESS THAN 0.02 B-Type Natriuretic Peptide 54 Lipase 60 Thyroid Stimulating Hormone 3rd Gen 1.180 Test 02/28/17 04:12 02/28/17 05:15 Lactic Acid Level 1.8 Blood Gas Puncture Site RT RADIAL Blood Gas Patient Temperature 37.0 Blood Gas HCO3 25 Blood Gas Base Excess 1.6 Blood Gas Oxygen Saturation 94 Arterial Blood pH 7.49 Arterial Blood Partial Pressure CO2 33 Arterial Blood Partial Pressure O2 81 Arterial Blood Oxygen Content 9.3 Arterial Blood Carboxyhemoglobin 2.5 Arterial Blood Methemoglobin 0.5 Blood Gas Hemoglobin 6.9 Oxygen Delivery Device NASAL CANNULA Blood Gas Liter Flow 2 Date/Time Source Procedure Growth Status 02/28/17 04:18 Blood Peripheral Aerobic Blood Culture Pending Received 02/28/17 04:18 Blood Peripheral Anaerobic Blood Culture Pending Received Result Diagram: 02/28/17 0030 02/28/17 0030 Imaging Last 48 hours Impressions Lower Extremity Ultrasound 02/28/172354 Signed Impressions: Service Date/Time: Tuesday, February 28, 2017 00:53 - CONCLUSION: Negative exam with no evidence of deep venous thrombosis. Nacho Brian MD Chest X-Ray 02/27/172354 Signed Impressions: Service Date/Time: Tuesday, February 28, 2017 00:23 - CONCLUSION: Midinspiratory study with crowding of the lung vasculature and new opacity at the lung bases right greater than left. This could represent early pneumonia. MD James Campoi VTE Risk Assessment Caprini VTE Risk Assessment: Mod/High Risk (score >= 2) Caprini Risk Assessment Model Point Value = 1 Point Value = 2 Point Value = 3 Point Value = 5 Age 41-60 Minor surgery BMI > 25 kg/m2 Swollen legs Varicose veins or History of unexplained or recurrent spontaneous Oral contraceptives or hormone replacement Sepsis (< 1 month) Serious lung disease, including pneumonia (< 1 month) Abnormal pulmonary function Acute myocardial infarction Congestive heart failure (< 1 month) History of inflammatory bowel disease Medical patient at bed rest Age 61-74 Arthroscopic surgery Major open surgery (> 45 min) Laparoscopic surgery (> 45 min) Malignancy Confined to bed (> 72 hours) Immobilizing plaster cast Central venous access Age >= 75 History of VTE Family history of VTE Factor V Leiden Prothrombin [id number] Lupus anticoagulant Anticardiolipin antibodies Elevated serum homocysteine Heparin-induced thrombocytopenia Other congenital or acquired thrombophilia Stroke (< 1 month) Elective arthroplasty Hip, pelvis, or leg fracture Acute spinal cord injury (< 1 month) Prophylaxis Regimen Total Risk Factor Score Risk Level Prophylaxis Regimen 0-1 Low Early ambulation 2 Moderate Order ONE of the following: *Sequential Compression Device (SCD) *Heparin 5000 units SQ BID 3-4 Higher Order ONE of the following medications: *Heparin 5000 units SQ TID *Enoxaparin/Lovenox 40 mg SQ daily (WT < 150 kg, CrCl > 30 mL/min) *Enoxaparin/Lovenox 30 mg SQ daily (WT < 150 kg, CrCl > 10-29 mL/min) *Enoxaparin/Lovenox 30 mg SQ BID (WT < 150 kg, CrCl > 30 mL/min) AND/OR *Sequential Compression Device (SCD) 5 or more Highest Order ONE of the following medications: *Heparin 5000 units SQ TID (Preferred with Epidurals) *Enoxaparin/Lovenox 40 mg SQ daily (WT < 150 kg, CrCl > 30 mL/min) *Enoxaparin/Lovenox 30 mg SQ daily (WT < 150 kg, CrCl > 10-29 mL/min) *Enoxaparin/Lovenox 30 mg SQ BID (WT < 150 kg, CrCl > 30 mL/min) AND *Sequential Compression Device (SCD) Assessment and Plan Assessment and Plan Impression: sepsis oral thrush anarsarca pain at left hip ivda with bayron side effects of using ivernectin for 5 days from friend? Plan: broad spectrum antibiotics with vanco/ zosyn echo id consult palliative care consult as pt would likely deteriorate while in hospital pt has a daughter in [place]- contact info in her cell- phone being charged- orders written for Nursing to get that number once phone is charged and to put it on file will need to inform daughter of pt's staus- pt agrees d/c fluids for now- as pt received boluses in ER and has some anarsarca- will await echo may need further fluids later start nystatin swish and swallow fluconazole for possible esoph candidiasis hepatitis profile hiv testing- pt agrees CT pulm angiogram as pt has been mostly in bed for few weeks, tachycardic, dyspneic dvt prophylaxis Discussed Condition With patient, ER provider, nursing staff Physician Certification 2 Midnight Certification Type: Admission for Inpatient Services Order for Inpatient Services The services are ordered in accordance with Medicare regulations or non- Medicare payer requirements, as applicable. In the case of services not specified as inpatient-only, they are appropriately provided as inpatient services in accordance with the 2-midnight benchmark. Estimated LOS (days): 6 days is the estimated time the patient will need to remain in the hospital, assuming treatment plan goals are met and no additional complications. Post-Hospital Plan: Not yet determined Alice Rodriguez MD Feb 28, 2017 05:59
[2017-02-28] MEDS ORDERED: NYSTATIN SUSP 500,000 U/5 ML CUP SWISH-SWAL ONE (06:00)
[2017-02-28] MEDS: FLUCONAZOLE 400 MG PREMIX BAG 200 ML IV SCH (06:33)
[2017-02-28] MEDS ORDERED: PIPERACIL-TAZO 4.5 GM PREMIX 100 ML IV SCH (08:00)
[2017-02-28] MEDS: SODIUM CHLORIDE 0.9% FLUSH 10 ML FLUSH IV FLUSH SCH ×2 (09:00→20:50)
[2017-02-28 09:28] LABS: BICARBONATE 21.9 MEQ/L (21.0-32.0); POTASSIUM 3.5 MEQ/L (3.5-5.1)
[2017-02-28] MEDS: PIPERACIL-TAZO 4.5 GM PREMIX 100 ML IV SCH ×3 (09:44→20:49)
--- NOTE | 2017-02-28 10:05 | HHI.PR ---
Addendum to Inpatient Note Addendum Reason: Additional Documentation Additional Information Nursing reported that the patient's blood pressure was low. The patient appeared comfortable. She did mention some abdominal pain but otherwise had no acute complaints. She said she has not been eating well lately. She says she had diarrhea but now her stools are back to normal. She says she is still using Roxicodone and injects it. Her sodium level improved to 128 from 122. Blood pressure also improved with a systolic over 100. The patient was transferred to the intensive care unit for closer monitoring. She will continue IV vancomycin and Zosyn. Sputum culture was added to the blood cultures. Urine tox screen is pending. We will repeat a BMP regularly. Nacho Casillas DO Feb 28, 2017 10:05
[2017-02-28 10:25] LABS: REVIEW FLAG FINAL
[2017-02-28 10:27] LABS: HEMATOCRIT 20.4 % (35.0-46.0)
[2017-02-28 10:46] LABS: INDIRECT BILIRUBIN 0.4 MG/DL (0.0-0.8); TOTAL BILIRUBIN ADULT 0.7 MG/DL (0.2-1.0)
[2017-02-28] MEDS: NYSTATIN SUSP 500,000 U/5 ML CUP SWISH-SWAL SCH ×4 (12:12→20:49)
[2017-02-28 12:56] LABS: BICARBONATE 25.3 MEQ/L (21.0-32.0); POTASSIUM 3.9 MEQ/L (3.5-5.1)
--- NOTE | 2017-02-28 13:03 | MB ---
cc: FRANCIA SALTER MD DATE OF CONSULTATION 02/28/[address] Rodriguez REASON FOR CONSULTATION Sepsis HISTORY OF PRESENT ILLNESS This is a 41-year-old white female who was brought to the emergency department because of edema. The patient is a poor historian. She uses IV drugs. She admits to using IV drugs as recently as yesterday. The patient reports that she had vomiting and diarrhea a couple weeks ago and she was given Ivermectin pill for the diarrhea. She states that she felt very ill, but is not specific except for just feeling very weak and tired. She states that she continued to have diarrhea for about a week and that she has lost approximately 12 pounds of weight. She states that her roommates took her to the emergency department because they saw that she was not functioning as her usual self. She denies problems with fever or chills. She was noted to have temperature elevation of 103 degrees in the emergency department and her blood pressure was 95/50 and heart rate was 101. Her lactic acid level was 2.4 and white count was elevated at 13.9. Chest x-ray was performed and it showed crowding of the lung vasculature and a new opacity at the lung bases. The patient denies cough or shortness of breath. She states that she was having mild chest pain during the week when she had the diarrhea. She does not recall having any blood in the stools and she denies dysuria. The patient had a sodium level of 122 and her liver function tests were elevated. Her hemoglobin has dropped from 8.1-6.8. Blood cultures were taken and these are pending. Her blood pressure dropped to 84/47 after admission. She was initially seen in the emergency department just around midnight last evening. PAST MEDICAL HISTORY 1. IV drug abuse. 2. Bilateral tubal ligation 3. Laparotomy 4. 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 COPD ALLERGIES CIPROFLOXACIN MEDICATIONS 1. Vancomycin 2. Piperacillin/tazobactam 3. Fluconazole 4. Oral Nystatin SOCIAL HISTORY The patient smokes a pack of cigarettes a day. Positive IV drug use. No alcohol. She lives with a roommate. FAMILY HISTORY Patient's mother had lung cancer with metastasis to the brain. REVIEW OF SYSTEMS Pertinent as mentioned above in history of present illness. In addition, the patient notes the lump in the left breast which is nontender. The patient also notes having sweats. PHYSICAL EXAMINATION This is a cachectic female who is in no acute distress. VITAL SIGNS: Temperature 98.3, BP 94/61, heart rate 92, respirations 20. HEENT: Head is atraumatic. Extraocular movements grossly intact, pupils reactive to light. No icterus. Oropharynx more mild thrush. NECK: Supple without adenopathy. LUNGS: Clear decreased breath sounds. CHEST: Left breast has a nodular, rubbery mass which is mobile measuring approximately 2 cm x 2 cm at the 4 o'clock position. This is nontender. HEART: Regular S1 and S2 without murmurs, rubs or gallops. ABDOMEN: Bowel sounds present, soft, no tenderness appreciated. RECTAL: Not performed. EXTREMITIES: No clubbing, cyanosis or edema. SKIN: No rash. NEUROLOGIC: No gross focal findings. LABS WBC 13.9, platelets 221, hemoglobin 6.8, sedimentation rate greater than 140. BUN 12, creatinine 82, estimated GFR of 77, sodium 128, AST 54, ALT 64, alk phos 132. Toxicology screen positive for opiates and cocaine use. IMPRESSION 1. Sepsis likely related to IV drug use. 2. Leukocytosis secondary to sepsis. 3. Left breast lump. 4. Abnormal chest x-ray probably secondary to pneumonia. RECOMMENDATIONS 1. Continue piperacillin/tazobactam. 2. Continue vancomycin. 3. Monitor blood cultures. 4. Monitor clinical status. 5. Left breast lump/mass. Can be evaluated by medical specialty. It is not tender and does not appear to be an infection. Thank you for this consultation. The patient's progress will be followed and further recommendations will be given upon followup if necessary. Francia Salter MD FD/LIZ /11:58 AM /12:39 PM
[2017-02-28] MEDS ORDERED: HEPARIN-D5W 25,000 U/250 ML 250 ML IV PRN (13:15)
--- NOTE | 2017-02-28 13:25 | ECHRPT ---
Indication: CONCLUSIONS The left ventricular systolic function is normal with an estimated ejection fraction in the range of 60-65%. Mild mitral valve regurgitation. There is trace tricuspid valve regurgitation. 1.0 x 1.4 echogenic structure seen in the RV, circular structure with minimal movement appears attac hed to the moderator band with a mobile portion noted... most likely thrombus with either an acute portion vs endocarditis. Discussed with primary team BP: / HR: Rhythm: MEASUREMENTS (Male / Female) Normal Values Technical Quality:Good 2D ECHO LV Diastolic Diameter PLAX 4.6 cm 4.2 - 5.9 / 3.9 - 5.3 cm LV Systolic Diameter PLAX 3.0 cm IVS Diastolic Thickness 0.7 cm 0.6 - 1.0 / 0.6 - 0.9 cm LVPW Diastolic Thickness 1.0 cm 0.6 - 1.0 / 0.6 - 0.9 cm LV Relative Wall Thickness 0.4 RV Internal Dim ED PLAX 2.4 cm M-MODE Aortic Root Diameter MM 3.3 cm LA Systolic Diameter MM 2.6 cm LA Ao Ratio MM 0.8 AV Cusp Separation MM 2.2 cm DOPPLER Mitral E Point Velocity 84.4 cm/s Mitral A Point Velocity 73.5 cm/s Mitral E to A Ratio 1.1 LV E' Lateral Velocity 8.7 cm/s Mitral E to LV E' Lateral Ratio 9.7 LV E' Septal Velocity 8.6 cm/s Mitral E to LV E' Septal Ratio 9.8 TR Peak Velocity 307.0 cm/s TR Peak Gradient 37.7 mmHg Right Atrial Pressure 10.0 mmHg Pulmonary Artery Systolic Pressu 47.7 mmHg Right Ventricular Systolic Press 47.7 mmHg FINDINGS LEFT VENTRICLE The left ventricular systolic function is normal with an estimated ejection fraction in the range of 60-65%. Normal left ventricular size. Wall thickness is normal. No regional wall motion abnormalities are present. RIGHT VENTRICLE Normal right ventricular size and systolic function. 1.0 x 1.4 echogenic structure seen in the RV, circular structure with minimal movement appears attac hed to the moderator band with a mobile portion noted... most likely thrombus with either an acute portion vs endocarditis LEFT ATRIUM The left atrial size is normal. RIGHT ATRIUM The right atrial size is normal. ATRIAL SEPTUM Normal atrial septal thickness. AORTA The aortic root and proximal ascending aorta are normal in size on limited imaging. MITRAL VALVE Mild mitral valve regurgitation. Structurally normal mitral valve. No mitral valve stenosis. AORTIC VALVE Trileaflet aortic valve. No aortic valve stenosis or regurgitation. TRICUSPID VALVE Structurally normal tricuspid valve. There is trace tricuspid valve regurgitation. The estimated pulmonary arterial pressure is 47.7 mmHg. PULMONARY VALVE No pulmonary valve regurgitation or stenosis. VESSELS The inferior vena cava is normal in size. PERICARDIUM No pericardial effusion. Collins Cline DO (Electronically Signed) Final Date:28 February 2017 13:24
[2017-02-28] MEDS ORDERED: HEPARIN SODIUM - IV 10,000 UNITS/10 ML VIAL IV PUSH ONE (13:30)
[2017-02-28] MEDS: VANCOMYCIN 1,000 MG/NS 250 ML IV SCH ×2 (13:52)
--- NOTE | 2017-02-28 14:43 | EKG ---
Date Performed: 02/28/2017 Time Performed: 00:11:45 PTAGE: 41 years EKG: Sinus rhythm POSSIBLE RIGHT VENTRICULAR CONDUCTION DELAY BORDERLINE ECG NO PREVIOUS TRACING DOCTOR: Lisset Crisostomo Interpretating Date/Time 02/28/2017 14:39:29
--- NOTE | 2017-02-28 15:31 | PD.CONS ---
Consult Service Palliative Care Consult Requested By Dr. Rodriguez. Primary Care Physician No Primary Care Physician. Reason for Consultation a. To assist with evaluation and management of symptoms including: Debility , shortness of breath. b. To assist medical decision maker(s) with: better understanding of current medical conditions; weighing benefits/burdens of medical treatment options; making medical treatment decisions. . HPI History of Present Illness Mrs. Coleman is a 42-year-old female with a medical history significant for IV drug abuse, COPD and melanoma. Patient presented to ED on 02/27/17 with a history of not feeling well for the prior 2 weeks. Patient endorsing intermittent nausea, vomiting and diarrhea as well as 12lbs weight loss and lower extremity edema. Patient with a history of IV drug use to include injected Pavithra, heroin and hydromorphone. Chest x-ray revealing crowding of the lung vasculature a new opacity at the lung base, questionable early pneumonia. Lower extremity ultrasound negative for DVT. UA positive for opiates and cocaine. Patient was admitted for further management of sepsis, anasarca and oral thrush. Infectious disease, Dr. Berrios consulted on 02/28/17 for evaluation and management of sepsis. Pending blood cultures, patient was continued on IV antibiotic. Patient arrived with hemoglobin of 8.1, repeat laboratory revealing hemoglobin of 6.8. Pending PRBC transfusion. Sodium 124, potassium 3.5, elevated liver enzymes. Echocardiogram 02/28/17 revealing EF of 60-65%, mild mitral valve regurgitation and trace tricuspid valve regurgitation. 1.0 x 1.4 echogenic structure seen in the right ventricle, thrombus vs endocarditis given history of IV drug abuse. Max temp 103.1 earlier this morning. SBP in the 80s. Currently tolerating oxygen via nasal cannula at 2 L, oxygen saturation in the high 90s. Palliative care has been consulted for further clarifications of goals of care, assistance with designation of healthcare surrogate. Reviewed patient's past medical history to include acute hospitalizations and multiple ED visits. Prior hospitalization from 05/04/16 to 05/06/16 secondary to IV drug abuse, leukocytosis. Echo at that time negative for vegetation. Patient was discharged on methadone. She reported planning to leave to [place] for drug detox rehabilitation. Patient seen in surgical ICU, dual visit with palliative social welfare research worker Kristin Herndon. Resting in bed in no acute distress. Tearful at times. Patient alert and oriented x self, place and situation. In this first visit, reviewed the role of palliative care in advanced illness in regards to symptom management as well as support surrounding goals of care and advance care planning. Patient receptive to our visit. Obtain patient's past medical history and psychosocial history. Reviewed events leading to this hospitalization, clinical course and ongoing medical management. Patient appears to have a good understanding of her current medical condition, emotional/tearful at times. Patient reports that in September she was able to participate in drug detox program and successfully graduated from it. However, returned to [place] and restarted using IV drugs, usually Pavithra, hydromorphone and heroin. Patient reports that she does NOT participating in any needle exchange program, reports reusing needles frequently. Assisted patient with completion of designation of healthcare surrogate, naming both of her children. Ongoing emotional support and active listening provided. Patient receptive to palliative care follow up. . Function/Cognitive Trajectory Patient residing in private home with friend. Unemployed. Independent with all ADLs. No assistive device used for ambulation. . Review of Systems Constitutional: COMPLAINS OF: Fatigue, Fever, Weight loss, Change in appetite Endocrine: DENIES: Heat/cold intolerance Eyes: DENIES: Eye inflammation, Vision loss Ears, nose, mouth, throat: DENIES: Nasal discharge, Oral lesions, Throat pain, Ear Pain Respiratory: COMPLAINS OF: Shortness of breath, DENIES: Apneas Cardiovascular: COMPLAINS OF: Dyspnea on Exertion, Lower Extremity Edema Gastrointestinal: COMPLAINS OF: Diarrhea, Nausea, Vomiting, Anorexia, DENIES: Bloody stools, Difficulty Swallowing Genitourinary: DENIES: Urinary frequency Musculoskeletal: DENIES: Joint pain, Decreased range of motion Integumentary: COMPLAINS OF: Abnormal pigmentation, Pruritus, Breast masses Hematologic/Lymphatics: COMPLAINS OF: Bruising Immunologic/Allergic: DENIES: Eczema Neurologic: DENIES: Abnormal gait, Seizures, Speech Problems, Tremor Psychiatric: COMPLAINS OF: Anxiety, Depression, DENIES: Hallucinations, Agitation Past Family Social History Coded Allergies: ciprofloxacin (Unverified Allergy, Severe, TREMORS AND SOB, 02/27/17) *MDRO Multi-Drug Resistant Organism (Verified Adverse Reaction, Unknown, 02/27/17) 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 Past Medical History IV drug abuse COPD Basal cell carcinoma, melanoma status post surgery . Past Surgical History skin cancer removal laparotomy tubal ligation . Reported Medications None reported. . Current Medications Medications (Trade) Dose Ordered Sig/Piedad Route Start Time Stop Time Status Last Admin (NS Flush) 2 ml UNSCH PRN IV FLUSH 02/28/17 02:00 (NS Flush) 2 ml BID IV FLUSH 02/28/17 09:00 02/28/17 09:00 (Narcan Inj) 0.4 mg UNSCH PRN IV PUSH 02/28/17 02:00 Pharmacy Profile Note 0 ml @ 0 mls/hr UNSCH OTHER 02/28/17 02:15 (Mycostatin Liq) 5 ml QID SWISH-SWAL 02/28/17 09:00 02/28/17 13:48 Fluconazole/ Sodium Chloride 200 ml @ 100 mls/hr Q24H IV 02/28/17 06:00 02/28/17 06:33 Piperacillin Sod/ Tazobactam Sod 100 ml @ 200 mls/hr Q6H IV 02/28/17 08:00 02/28/17 13:48 Miscellaneous Information SPECIFIC LAB TO BE DRAWN:VANCOMYCIN TROUGH DATE TO... ONCE ONCE .XX 03/01/17 12:45 03/01/17 12:46 Vancomycin HCl 1000 mg/Sodium Chloride 250 ml @ 250 mls/hr Q12H IV 02/28/17 13:00 02/28/17 13:52 Heparin Sodium/ Dextrose 250 ml @ 9 mls/hr TITRATE PRN IV 02/28/17 13:15 Family History Mother at age 54 from lung cancer with mets to brain. Patient has 2 children who are alive and well. . Substance Use Tobacco: Smokes one pack per day. Alcohol: Denies. Prescription med abuse: Opioid as stated below. Illicits: History of IV drug abuse to include injected Roxicodone, heroine and hydromorphone. Cocaine. . Psychosocial History Patient originally from [facility]. Unemployed. , has 2 adult children who residing [place]. Planning to return to [place] mid-February. No service. . Spiritual/Cultural Factors Amish tonya. . Living Will: Never completed Health Care Surrogate: Copy in medical record Durable Power of Coding Assistant: Never completed Date completed: 02/28/2017. . Health Care Surrogate(s): Primary healthcare surrogate is patient's daughter Raissa Coleman, alternate surrogate his son Gallito Silverman. . Today's verbally stated goals: Full code. Aggressive management, ongoing goals of care conversation. . Ethical and Legal Issues No ethical legal issues identified at this time. . Physical Exam Vital Signs Date Time Temp Pulse Resp B/P (MAP) Pulse Ox O2 Delivery O2 Flow Rate FiO2 02/28/17 12:00 75 02/28/17 10:00 76 02/28/17 10:00 98.3 76 19 86/52 (63) 100 02/28/17 08:19 99 Nasal Cannula 2.00 02/28/17 08:09 86/42 (57) 02/28/17 08:00 98.3 82 16 84/47 (59) 98 02/28/17 05:24 97 Nasal Cannula 2.00 02/28/17 05:18 106 02/28/17 04:46 103.1 105 17 95/50 (65) 96 02/28/17 04:07 02/28/17 01:53 107 18 124/68 (86) 99 Room Air 02/28/17 00:53 18 95 Room Air 02/27/17 22:27 99.9 114 16 131/64 (86) 99 02/28/17 03/01/17 19:00 07:00 Intake Total 1000 ml Balance 1000 ml Intake IV Total 1000 ml Exam CONSTITUTIONAL/GENERAL: This is a thin, ill appearing female resting in bed in no apparent distress. TUBES/LINES/DRAINS: PIV's, nasal cannula. SKIN: No jaundice or lesions. Skin temperature appropriate. Not diaphoretic. Patchy discoloration to skin on face, torso. HEAD: Atraumatic. Normocephalic. EYES: Pupils equal and round and reactive. Extraocular motions intact. No scleral icterus. No injection or drainage. ENT: Hearing grossly normal. Nose without bleeding or purulent drainage. Moist oral mucosa. NECK: Trachea midline. Supple, nontender. CARDIOVASCULAR: Regular rate and rhythm without murmurs. Peripheral pulses symmetric. RESPIRATORY/CHEST: Symmetric, unlabored respirations. Clear to auscultation. Breath sounds equal bilaterally. No wheezes, rales, or rhonchi. GASTROINTESTINAL: Abdomen soft, non-tender, mildly distended. No guarding. Bowel sounds present. GENITOURINARY: Without palpable bladder distension. MUSCULOSKELETAL: Extremities without clubbing, cyanosis. Trace edema to bilateral lower extremities. NEUROLOGICAL: Awake and alert. Motor and sensory grossly within normal limits. Follows commands. Cognitively sharp. Moves all extremities. PSYCHIATRIC: Anxious, tearful. . Diagnostic Tests Laboratory Laboratory Tests Test 02/27/17 23:55 02/28/17 00:10 02/28/17 00:30 02/28/17 04:10 Lactic Acid Level 2.4 mmol/L (0.4-2.0) Urine Color YELLOW (YELLW/STRAW) Urine Turbidity HAZY (CLEAR) Urine pH 5.5 (5.0-8.5) Urine Specific [place] 1.018 (1.002-1.035) Urine Protein 30 mg/dL (NEG-TRACE) Urine Glucose (UA) NEG mg/dL (NEG) Urine Ketones NEG mg/dL (NEG) Urine Occult Blood MOD (NEG) Urine Nitrite NEG (NEG) Urine Bilirubin NEG (NEG) Urine Urobilinogen LESS THAN 2.0 MG/DL (LESS Urine Leukocyte Esterase NEG (NEG) Urine RBC 3 /hpf (0-3) Urine WBC 4 /hpf (0-5) Urine Squamous Epithelial Cells 9 /hpf (0-5) Urine Hyaline Casts 13 /lpf (RARE) Urine Granular Casts 4 /lpf (NONE) Urine Mucus FEW /lpf (OCC) Microscopic Urinalysis Comment CULT NOT INDICATED White Blood Count 13.9 TH/MM3 (4.0-11.0) Red Blood Count 2.81 MIL/MM3 (4.00-5.30) Hemoglobin 8.1 GM/DL (11.6-15.3) Hematocrit 23.5 % (35.0-46.0) Mean Corpuscular Volume 83.8 FL (80.0-100.0) Mean Corpuscular Hemoglobin 28.9 PG (27.0-34.0) Mean Corpuscular Hemoglobin Concent 34.5 % (32.0-36.0) Red Cell Distribution Width 14.6 % (11.6-17.2) Platelet Count 221 TH/MM3 (150-450) Mean Platelet Volume 7.6 FL (7.0-11.0) Neutrophils (%) (Auto) 87.7 % (16.0-70.0) Lymphocytes (%) (Auto) 7.8 % (9.0-44.0) Monocytes (%) (Auto) 4.0 % (0.0-8.0) Eosinophils (%) (Auto) 0.2 % (0.0-4.0) Basophils (%) (Auto) 0.3 % (0.0-2.0) Neutrophils # (Auto) 12.2 TH/MM3 (1.8-7.7) Lymphocytes # (Auto) 1.1 TH/MM3 (1.0-4.8) Monocytes # (Auto) 0.6 TH/MM3 (0-0.9) Eosinophils # (Auto) 0.0 TH/MM3 (0-0.4) Basophils # (Auto) 0.0 TH/MM3 (0-0.2) CBC Comment DIFF FINAL Differential Comment Erythrocyte Sedimentation Rate GREATER THAN 140 mm/hr Prothrombin Time 13.9 SEC (9.8-11.6) Prothromb Time International Ratio 1.4 RATIO Activated Partial Thromboplast Time 30.2 SEC (24.3-30.1) Blood Urea Nitrogen 16 MG/DL (7-18) Creatinine 1.08 MG/DL (0.50-1.00) Random Glucose 82 MG/DL (74-106) Total Protein 8.2 GM/DL (6.4-8.2) Albumin 2.3 GM/DL (3.4-5.0) Calcium Level 8.4 MG/DL (8.5-10.1) Magnesium Level 1.8 MG/DL (1.5-2.5) Alkaline Phosphatase 153 U/L (45-117) Aspartate Amino Transf (AST/SGOT) 77 U/L (15-37) Alanine Aminotransferase (ALT/SGPT) 93 U/L (10-53) Total Bilirubin 0.5 MG/DL (0.2-1.0) Sodium Level 122 MEQ/L (136-145) Potassium Level 4.0 MEQ/L (3.5-5.1) Chloride Level 88 MEQ/L (98-107) Carbon Dioxide Level 25.1 MEQ/L (21.0-32.0) Anion Gap 9 MEQ/L (5-15) Estimat Glomerular Filtration Rate 56 ML/MIN (>89) Total Creatine Kinase 67 U/L (26-192) Troponin I LESS THAN 0.02 NG/ML B-Type Natriuretic Peptide 54 PG/ML (0-100) Lipase 60 U/L (73-393) Thyroid Stimulating Hormone 3rd Gen 1.180 uIU/ML (0.358-3.740) Hepatitis A IgM Antibody NEGATIVE (NEGATIVE) Hepatitis B Surface Antigen NEGATIVE (NEGATIVE) Hepatitis B Core IgM Antibody NEGATIVE (NEGATIVE) Hepatitis C Antibody REACTIVE (NEGATIVE) Test 02/28/17 04:12 02/28/17 05:15 02/28/17 08:24 02/28/17 08:45 Lactic Acid Level 1.8 mmol/L (0.4-2.0) Blood Gas Puncture Site RT RADIAL Blood Gas Patient Temperature 37.0 Blood Gas HCO3 25 mmol/L (22-26) Blood Gas Base Excess 1.6 mmol/L (-2-2) Blood Gas Oxygen Saturation 94 % (90-100) Arterial Blood pH 7.49 (7.380-7.420) Arterial Blood Partial Pressure CO2 33 mmHg (38-42) Arterial Blood Partial Pressure O2 81 mmHG (61-120) Arterial Blood Oxygen Content 9.3 Vol % (12.0-20.0) Arterial Blood Carboxyhemoglobin 2.5 % (0-4) Arterial Blood Methemoglobin 0.5 % (0-2) Blood Gas Hemoglobin 6.9 G/DL (12.0-16.0) Oxygen Delivery Device NASAL CANNULA Blood Gas Liter Flow 2 L/M Blood Urea Nitrogen 12 MG/DL (7-18) Creatinine 0.82 MG/DL (0.50-1.00) Random Glucose 99 MG/DL (74-106) Calcium Level 7.5 MG/DL (8.5-10.1) Sodium Level 128 MEQ/L (136-145) Potassium Level 3.5 MEQ/L (3.5-5.1) Chloride Level 98 MEQ/L (98-107) Carbon Dioxide Level 21.9 MEQ/L (21.0-32.0) Anion Gap 8 MEQ/L (5-15) Estimat Glomerular Filtration Rate 77 ML/MIN (>89) Urine Opiates Screen POS (NEG) Urine Barbiturates Screen NEG (NEG) Urine Amphetamines Screen NEG (NEG) Urine Benzodiazepines Screen NEG (NEG) Urine Cocaine Screen POS (NEG) Urine Cannabinoids Screen NEG (NEG) Test 02/28/17 09:59 02/28/17 12:25 Hemoglobin 6.8 GM/DL (11.6-15.3) Hematocrit 20.4 % (35.0-46.0) Total Bilirubin 0.7 MG/DL (0.2-1.0) Direct Bilirubin 0.3 MG/DL (0.0-0.2) Indirect Bilirubin 0.4 MG/DL (0.0-0.8) Aspartate Amino Transf (AST/SGOT) 54 U/L (15-37) Alanine Aminotransferase (ALT/SGPT) 64 U/L (10-53) Alkaline Phosphatase 132 U/L (45-117) Total Protein 6.6 GM/DL (6.4-8.2) Albumin 1.7 GM/DL (3.4-5.0) Lipase 45 U/L (73-393) HIV (1&2) Antibody NEGATIVE (NEGATIVE) Blood Urea Nitrogen 10 MG/DL (7-18) Creatinine 0.77 MG/DL (0.50-1.00) Random Glucose 96 MG/DL (74-106) Calcium Level 7.9 MG/DL (8.5-10.1) Sodium Level 131 MEQ/L (136-145) Potassium Level 3.9 MEQ/L (3.5-5.1) Chloride Level 99 MEQ/L (98-107) Carbon Dioxide Level 25.3 MEQ/L (21.0-32.0) Anion Gap 7 MEQ/L (5-15) Estimat Glomerular Filtration Rate 83 ML/MIN (>89) Result Diagram: 02/28/17 0959 02/28/17 1225 Microbiology Microbiology Date/Time Source Procedure Growth Status 02/28/17 04:18 Blood Peripheral Aerobic Blood Culture Pending Received 02/28/17 04:18 Blood Peripheral Anaerobic Blood Culture Pending Received 02/28/17 04:05 Blood Peripheral Aerobic Blood Culture Pending Received 02/28/17 04:05 Blood Peripheral Anaerobic Blood Culture Pending Received 02/28/17 00:45 Blood Peripheral Aerobic Blood Culture Pending Received 02/28/17 00:45 Blood Peripheral Anaerobic Blood Culture Pending Received Imaging Last Impressions Lower Extremity Ultrasound 02/28/17 1254 Signed Impressions: Service Date/Time: Tuesday, February 28, 2017 00:53 - CONCLUSION: Negative exam with no evidence of deep venous thrombosis. Nacho Brian MD Chest X-Ray 02/27/17 4809 Signed Impressions: Service Date/Time: Tuesday, February 28, 2017 00:23 - CONCLUSION: Midinspiratory study with crowding of the lung vasculature and new opacity at the lung bases right greater than left. This could represent early pneumonia. Nacho Brian MD Patient/Family Conference Present at Family Conference: Patient. No family at bedside. Family Conference Time (mins): 35 Family Conference Location: Bedside Issues Discussed: * Palliative care role, purpose, approach * Additional medical, psychosocial, and spiritual history * Patients general health, functional status, and cognitive changes in the months leading up to the current hospitalization * Patient/family understanding of the current medical problems -sepsis, concern for endocarditis * Patients goals of care as best understood from advance directives and/or conversations and/or values * Current medical treatment options and benefits/burdens of those options * Questions answered to the best of my ability * Palliative care contact information provided * Advance directives * Risks, benefits and limitations of CPR, intubation and mechanical ventilation . Assessment and Plan Disease Oriented Problem List: (1) Sepsis (2) Pneumonia (3) Anemia (4) IV drug abuse Symptom Scale: (1) Shortness of breath 0-10 Scale: 3 Comment: Secondary to acute illness, anemia. (2) Debility 0-10 Scale: Unable to quantify Comment: Secondary to acute illness, sepsis, anemia. Pertinent Non-Medical Issues Psychosocial: Patient originally from [facility]. Unemployed. , has 2 adult children who residing [place]. Planning to return to [place] mid-February. No service. Spiritual: Amish tonya. Legal: Advance directives completed. Ethical issues impacting care: No ethical issues have been identified. . Important Contacts Patient's daughter Raissa Coleman Patient's son Gallito Silverman . Prognosis Mrs. Coleman is a 42-year-old female with a medical history significant for IV drug abuse, COPD and melanoma. Patient presented to ED on 02/27/17 with a history of not feeling well for the prior 2 weeks. Patient endorsing intermittent nausea, vomiting and diarrhea as well as 12lbs weight loss and lower extremity edema. Patient with a history of IV drug use to include injected Pavithra, heroin and hydromorphone. Patient was admitted for further management of sepsis, anasarca and oral thrush. Patient at high risk for further complications, continue decline and . . Code Status: Full Code Plan * CODE STATUS: FULL code. Risks, benefits and limitations of CPR, intubation and mechanical ventilation were discussed with patient. * HEALTHCARE DECISION-MAKING: Patient participating in medical decision-making. She appears to retain the ability to weight benefits versus burden of treatment options. Has designated her daughter Raissa as primary healthcare surrogate decision-maker, alternate is her son Gallito Silverman. * GOALS OF CARE: Aggressive management at this time to include FULL code, pending further testing. Patient receptive to ongoing goals of care conversation. * SYMPTOMS: = Shortness of breath: Secondary to acute illness, acute anemia, sepsis. Currently tolerating O2 via nasal cannula 2 L. Pending transfusion of PRBC. = Debility, secondary to acute illness. * Palliative care contact information has been provided to patient. * Palliative care will continue to follow-up for further clarifications of goals of care as patient's clinical course continues to evolve. . Time Spent Total Floor Time (mins): 71 (Total time to include review and summarization of available medical records to include prior acute hospitalizations and ED visits , physical exam, goals of care conversation with patient, assistance with completion of designation of healthcare surrogate.) >50% Counseling/Coord of Care: Yes Thank you for the opportunity to participate in the care of Ms. Coleman. Attestation To help prompt me to consider important information that might be impacting today's encounter and assessment, information from prior notes written by myself or my colleagues may have been "brought forward" into today's note. My signature on this note, however, is an attestation that I personally performed the exam, history, and/or decision-making noted today, and, unless otherwise indicated, the interactions with patient, family, and staff as well as the review of records all occurred today. I also attest that the listed assessment and stated plan reflect my best clinical judgment today based on the combination of historical information, prior notes, and today's exam/ interactions. When time spent is documented, it refers only to time spent today by the signer, or if indicated, combined time spent today by collaborating physician/nurse practitioner. Simta Franco Feb 28, 2017 15:31
[2017-02-28 15:45] LABS: MEAN CORPUSCULAR HEMOGLOBIN 27.7 PG (27.0-34.0); PLATELET COUNT 185 TH/MM3 (150-450); RED BLOOD COUNT 2.44 MIL/MM3 (4.00-5.30); RED CELL DISTRIBUTION WIDTH 14.5 % (11.6-17.2); WHITE BLOOD COUNT 9.6 TH/MM3 (4.0-11.0)
[2017-02-28 15:58] LABS: APTT (PATIENT) 33.6 SEC (24.3-30.1); INTERNATIONAL NORMALIZED RATIO 1.5 RATIO; PROTHROMBIN TIME - PATIENT 15.2 SEC (9.8-11.6); REVIEW FLAG FINAL
[2017-02-28 15:59] LABS: HEMATOCRIT 20.5 % (35.0-46.0)
[2017-02-28 16:09] LABS: ANION GAP 7 MEQ/L (5-15); BICARBONATE 26.4 MEQ/L (21.0-32.0); BLOOD UREA NITROGEN 11 MG/DL (7-18); CHLORIDE 99 MEQ/L (98-107); GLOMERULAR FILTRATION RATE 72 ML/MIN (>89); POTASSIUM 3.7 MEQ/L (3.5-5.1); SODIUM (NA) 132 MEQ/L (136-145)
[2017-02-28 16:35] LABS: FERRITIN 653 NG/ML (8-252); TRANSFERRIN IRON PROFILE 109 MG/DL (200-360)
[2017-02-28] MEDS ORDERED: diphenhydrAMINE HCL 50 MG/ML VIAL IV PUSH ONE (19:00)
[2017-02-28] MEDS: ACETAMINOPHEN 325 MG TAB PO PRN ×2 (19:09→23:23)
[2017-02-28 19:50] LABS: AUTOMATED NEUTROPHIL # 9.3 TH/MM3 (1.8-7.7); BASOPHIL % 0.2 % (0.0-2.0); EOSINOPHIL % 0.1 % (0.0-4.0); LYMPH % 5.6 % (9.0-44.0); LYMPHOCYTE # 0.6 TH/MM3 (1.0-4.8); MEAN CELL VOLUME 83.2 FL (80.0-100.0); MEAN CORPUSCULAR HEMOGLOBIN 27.8 PG (27.0-34.0); MEAN CORPUSCULAR HGB CONC 33.4 % (32.0-36.0); NEUT % 89.1 % (16.0-70.0); PLATELET COUNT 177 TH/MM3 (150-450); RED BLOOD COUNT 2.44 MIL/MM3 (4.00-5.30); RED CELL DISTRIBUTION WIDTH 14.8 % (11.6-17.2); WHITE BLOOD COUNT 10.4 TH/MM3 (4.0-11.0)
[2017-02-28 19:52] LABS: HEMO FLAGS DIFF FINAL
[2017-02-28 19:54] LABS: HEMATOCRIT 20.3 % (35.0-46.0)
[2017-02-28 20:18] LABS: APTT (PATIENT) 97.5 SEC (24.3-30.1)
[2017-02-28 22:43] LABS: BACTERIA, URINE MOD /hpf; BLOOD, URINE MOD (NEG); COMMENT (UR) CULTURE INDICATED; CULTURE IF INDICATED CULTURE INDICATED; GLUCOSE,URINE NEG (NEG); HYALINE CAST, URINE 3 /lpf (RARE); KETONE, URINE NEG (NEG); MUCUS URINE FEW /lpf (OCC); NITRITE,URINE NEG (NEG); SQUAMOUS EPITHELIAL CELL URINE 2 /hpf (0-5); URIC ACID CRYSTALS, URINE RARE /hpf; URINE COLOR YELLOW (YELLW/STRAW)
[2017-03-01] VITALS (18 sets, daily range): BP systolic 96–115; BP diastolic 56–68; PULSE 64–100; RESP 21–31; TEMP 97.3–98.4; O2SAT 93–100
[2017-03-01] MEDS: VANCOMYCIN 1,000 MG/NS 250 ML IV SCH ×4 (00:34→13:20)
[2017-03-01 01:45] LABS: APTT (PATIENT) 29.1 SEC (24.3-30.1)
[2017-03-01] MEDS: PIPERACIL-TAZO 4.5 GM PREMIX 100 ML IV SCH ×2 (01:50→08:30)
[2017-03-01] MEDS: FLUCONAZOLE 400 MG PREMIX BAG 200 ML IV SCH (05:29)
--- NOTE | 2017-03-01 06:30 | MB ---
cc: PAULINE DAVILA DATE OF CONSULTATION February 28, 2017 DATE OF 1975. REASON FOR CONSULTATION Patient with severe anemia. HISTORY OF PRESENT ILLNESS This is a 41-year-old female who has a past medical history of IV drug abuse, alcohol abuse, history of bilateral tubal ligation, laparotomy, multiple skin cancers, melanoma of the back, history of COPD and tobacco abuse who was brought to the emergency room due to worsening edema and shortness of breath. She is actively using IV drugs. She has been having nausea, vomiting, diarrhea and progressive weakness. She has been taking ivermectin for unclear reasons but she states that this was given to get rid of parasites and diarrhea. She has lost more than 15 pounds of weight. She was found to be febrile with temperature of 103. She was tachycardiac and she had leukocytosis on admission. She had a chest x-ray on admission which revealed vascular congestion and new opacities in the lung bases, right greater than left. On admission she was found to be anemic with a hemoglobin of 8.1 and platelet count of 221,000. Subsequently her hemoglobin dropped to 6.8. She was hyponatremic on admission. Iron studies reveal iron deficiency and anemia of chronic inflammation. Total bilirubin was found to be normal at 0.7. Liver functions were elevated with AST of 54 and ALT of 64. Her albumin was very low at 1.7. The patient has been seen by Infectious Disease. She has been started on Zosyn and vancomycin. Blood cultures are pending. She has a left breast nodular mass measuring approximately 2 cm at the 4 o'clock position. Hematology has been consulted to make further recommendations regarding her anemia. The patient had an echocardiogram. This revealed a 1 x 1.4 cm echogenic structure in the right ventricle. This is most likely a thrombus. REVIEW OF SYSTEMS A comprehensive review systems was completed which is negative except as described in the HPI. PAST MEDICAL HISTORY 1. IV drug use. 2. Prior tubal ligation. 3. Skin cancer including a basal cell cancer and melanoma removed from the back. 4. History of COPD. 5. Tobacco abuse. PAST SURGICAL HISTORY 1. Tubal ligation as stated above. 2. Laparotomy. ALLERGIES ALLERGIC TO CIPROFLOXACIN. CURRENT MEDICATIONS 1. Vancomycin. 2. Zosyn. 3. Fluconazole. 4. Oral Nystatin. Medications were reviewed in the EMR. SOCIAL HISTORY She smokes a pack a day for more than 15 years. She actively engages in IV drug use. She denies alcohol abuse. FAMILY HISTORY Her mother of lung cancer with metastasis to the brain. LABORATORY DATA WBC 10, hemoglobin 6.8, MCV 83.2, platelet count 177. Sodium is 132, potassium 3.7, chloride 99, CO2 26.4, BUN is 11, creatinine is 0.87. Serum iron is low at 12, TIBC is low at 153; percent saturation is 7.9, ferritin is elevated at 653. Total bilirubin is 0.7, total protein is 6.6, albumin is 1.7, B12 and folate levels are normal. IMAGING STUDIES Reviewed in the EMR. ASSESSMENT AND PLAN This is a 41-year-old female who has a history of IV drug use who is actively engaged in this practice. She was brought to the emergency room feeling unwell. She was having diarrhea. She was found to have an intracardiac thrombus in the right ventricle. She was also found to be severely anemic. 1. Right ventricular thrombus in the setting of drug abuse. I agree with continuing heparin. She does have severe anemia. We need to obtain a stool hemoccult. If the hemoccult is positive she will need GI evaluation. We will closely monitor her hemoglobin. If it does drop after a blood transfusion, then we may have to hold her heparin. She needs a cardiology evaluation. 2. Acute anemia due to severe iron deficiency. She also has anemia of chronic inflammation. She has a history of IV drug abuse. We need to obtain an HIV and hepatitis panel. She does not appear to be having hemolysis. We will repeat bilirubin components in the a.m. Check LDH, haptoglobin and direct Terry test. Obtain a stool hemoccult. Transfuse 2 units of packed red blood cells, monitor hemoglobin closely. 3. Bacterial endocarditis and thrombus. Management per Infectious Disease and primary team. Thank you for allowing me to participate in the care of this patient. I will continue to follow this patient along. MD LAMONT Valderrama/JAMMIE /11:22 PM /6:01 AM
[2017-03-01 07:04] LABS: AUTOMATED NEUTROPHIL # 6.5 TH/MM3 (1.8-7.7); BASOPHIL % 0.4 % (0.0-2.0); EOSINOPHIL % 0.2 % (0.0-4.0); LYMPH % 15.9 % (9.0-44.0); LYMPHOCYTE # 1.3 TH/MM3 (1.0-4.8); MEAN CELL VOLUME 83.8 FL (80.0-100.0); MEAN CORPUSCULAR HEMOGLOBIN 27.9 PG (27.0-34.0); MEAN CORPUSCULAR HGB CONC 33.4 % (32.0-36.0); MONO % 6.4 % (0.0-8.0); NEUT % 77.1 % (16.0-70.0); PLATELET COUNT 160 TH/MM3 (150-450); RED BLOOD COUNT 2.23 MIL/MM3 (4.00-5.30); RED CELL DISTRIBUTION WIDTH 14.8 % (11.6-17.2); WHITE BLOOD COUNT 8.4 TH/MM3 (4.0-11.0)
[2017-03-01 07:07] LABS: HEMO FLAGS DIFF FINAL
[2017-03-01 07:09] LABS: HEMATOCRIT 18.7 % (35.0-46.0)
[2017-03-01 07:22] LABS: ANION GAP 8 MEQ/L (5-15); AST (GOT) 45 U/L (15-37); BICARBONATE 25.3 MEQ/L (21.0-32.0); BLOOD UREA NITROGEN 8 MG/DL (7-18); CHLORIDE 102 MEQ/L (98-107); GLOMERULAR FILTRATION RATE 104 ML/MIN (>89); POTASSIUM 3.2 MEQ/L (3.5-5.1); SODIUM (NA) 135 MEQ/L (136-145)
[2017-03-01 07:24] LABS: ALT (GPT) 51 U/L (10-53)
[2017-03-01 07:26] LABS: ALKALINE PHOSPHATASE 102 U/L (45-117); TOTAL BILIRUBIN ADULT 0.4 MG/DL (0.2-1.0)
[2017-03-01] MEDS: NYSTATIN SUSP 500,000 U/5 ML CUP SWISH-SWAL SCH ×4 (08:30→21:44)
[2017-03-01] MEDS: SODIUM CHLORIDE 0.9% FLUSH 10 ML FLUSH IV FLUSH SCH ×2 (08:30→21:44)
[2017-03-01] MEDS ORDERED: POTASSIUM CHLORIDE 10 MEQ CONTROLLED RELEASE TAB PO ONE (10:00)
[2017-03-01] MEDS ORDERED: diphenhydrAMINE HCL 25 MG CAP PO ONE (10:45)
[2017-03-01] MEDS ORDERED: ACETAMINOPHEN 325 MG TAB PO ONE (10:45)
--- NOTE | 2017-03-01 12:02 | HHI.IDPN ---
Note Infectious Disease Note Patient feels okay. Denies chills, N/V. Afebrile. Blood culture has staph aureus. 2D ECHO - R. ventricle thrombus vs vegetation. Patient was brought to the emergency department because of edema. The patient reports that she had vomiting and diarrhea a couple weeks ago and she was given Ivermectin pill for the diarrhea. Admitted with fever and low hemoglobin. PAST MEDICAL HISTORY 1. IV drug abuse. 2. Bilateral tubal ligation 3. Laparotomy 4. 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 COPD ALLERGIES CIPROFLOXACIN MEDICATIONS 1. Vancomycin 2. Piperacillin/tazobactam 3. Fluconazole 4. Oral Nystatin SOCIAL HISTORY The patient smokes a pack of cigarettes a day. Positive IV drug use. No alcohol. She lives with a roommate. FAMILY HISTORY Patient's mother had lung cancer with metastasis to the brain. OBJECTIVE: Vital Signs Date Time Temp Pulse Resp B/P (MAP) Pulse Ox O2 Delivery O2 Flow Rate FiO2 03/01/17 10:00 83 03/01/17 08:00 69 03/01/17 08:00 97.4 70 28 100/57 (71) 100 03/01/17 07:57 100 Nasal Cannula 2.00 03/01/17 07:00 Nasal Cannula 2.00 03/01/17 06:00 64 03/01/17 04:00 97.8 80 28 108/64 (79) 98 03/01/17 04:00 80 03/01/17 02:00 82 03/01/17 00:00 97.8 86 30 96/56 (69) 100 03/01/17 00:00 86 02/28/17 22:00 82 02/28/17 20:00 100 02/28/17 20:00 99.5 100 31 95/54 (68) 99 02/28/17 19:37 98 Nasal Cannula 2.00 02/28/17 19:00 100 Nasal Cannula 4.00 02/28/17 18:00 126 02/28/17 17:45 100.8 131 42 129/89 100 02/28/17 17:30 98.1 89 24 109/63 100 02/28/17 16:18 100 Nasal Cannula 2.00 02/28/17 16:00 98.1 78 22 86/50 (62) 100 02/28/17 16:00 78 02/28/17 14:00 82 02/28/17 12:00 98.1 82 27 94/61 (72) 100 02/28/17 12:00 75 Laboratory Tests Test 02/28/17 12:25 02/28/17 15:13 02/28/17 19:00 02/28/17 21:30 Blood Urea Nitrogen 10 MG/DL 11 MG/DL Creatinine 0.77 MG/DL 0.87 MG/DL Random Glucose 96 MG/DL 106 MG/DL Calcium Level 7.9 MG/DL 7.5 MG/DL Sodium Level 131 MEQ/L 132 MEQ/L Potassium Level 3.9 MEQ/L 3.7 MEQ/L Chloride Level 99 MEQ/L 99 MEQ/L Carbon Dioxide Level 25.3 MEQ/L 26.4 MEQ/L Anion Gap 7 MEQ/L 7 MEQ/L Estimat Glomerular Filtration Rate 83 ML/MIN 72 ML/MIN White Blood Count 9.6 TH/MM3 10.4 TH/MM3 Red Blood Count 2.44 MIL/MM3 2.44 MIL/MM3 Hemoglobin 6.8 GM/DL 6.8 GM/DL Hematocrit 20.5 % 20.3 % Mean Corpuscular Volume 84.0 FL 83.2 FL Mean Corpuscular Hemoglobin 27.7 PG 27.8 PG Mean Corpuscular Hemoglobin Concent 33.0 % 33.4 % Red Cell Distribution Width 14.5 % 14.8 % Platelet Count 185 TH/MM3 177 TH/MM3 Mean Platelet Volume 7.9 FL 8.0 FL Prothrombin Time 15.2 SEC Prothromb Time International Ratio 1.5 RATIO Activated Partial Thromboplast Time 33.6 SEC 97.5 SEC Iron Level 12 MCG/DL Total Iron Binding Capacity 153 MCG/DL Percent Iron Saturation 7.9 % Ferritin 653 NG/ML Vitamin B12 Level 881 PG/ML Folate GREATER THAN 20.0 NG/ML Neutrophils (%) (Auto) 89.1 % Lymphocytes (%) (Auto) 5.6 % Monocytes (%) (Auto) 5.0 % Eosinophils (%) (Auto) 0.1 % Basophils (%) (Auto) 0.2 % Neutrophils # (Auto) 9.3 TH/MM3 Lymphocytes # (Auto) 0.6 TH/MM3 Monocytes # (Auto) 0.5 TH/MM3 Eosinophils # (Auto) 0.0 TH/MM3 Basophils # (Auto) 0.0 TH/MM3 CBC Comment DIFF FINAL Differential Comment Urine Color YELLOW Urine Turbidity HAZY Urine pH 5.0 Urine Specific [place] 1.018 Urine Protein TRACE mg/dL Urine Glucose (UA) NEG mg/dL Urine Ketones NEG mg/dL Urine Occult Blood MOD Urine Nitrite NEG Urine Bilirubin NEG Urine Urobilinogen LESS THAN 2.0 MG/DL Urine Leukocyte Esterase NEG Urine RBC 2 /hpf Urine WBC 3 /hpf Urine Squamous Epithelial Cells 2 /hpf Urine Uric Acid Crystals RARE /hpf Urine Amorphous Sediment RARE Urine Bacteria MOD /hpf Urine Hyaline Casts 3 /lpf Urine Mucus FEW /lpf Microscopic Urinalysis Comment CULTURE INDICATED Test 03/01/17 01:02 03/01/17 06:25 03/01/17 06:29 Activated Partial Thromboplast Time 29.1 SEC Blood Urea Nitrogen 8 MG/DL Creatinine 0.63 MG/DL Random Glucose 112 MG/DL Total Protein 5.8 GM/DL Albumin 1.5 GM/DL Calcium Level 7.5 MG/DL Alkaline Phosphatase 102 U/L Aspartate Amino Transf (AST/SGOT) 45 U/L Alanine Aminotransferase (ALT/SGPT) 51 U/L Total Bilirubin 0.4 MG/DL Sodium Level 135 MEQ/L Potassium Level 3.2 MEQ/L Chloride Level 102 MEQ/L Carbon Dioxide Level 25.3 MEQ/L Anion Gap 8 MEQ/L Estimat Glomerular Filtration Rate 104 ML/MIN White Blood Count 8.4 TH/MM3 Red Blood Count 2.23 MIL/MM3 Hemoglobin 6.2 GM/DL Hematocrit 18.7 % Mean Corpuscular Volume 83.8 FL Mean Corpuscular Hemoglobin 27.9 PG Mean Corpuscular Hemoglobin Concent 33.4 % Red Cell Distribution Width 14.8 % Platelet Count 160 TH/MM3 Mean Platelet Volume 7.7 FL Neutrophils (%) (Auto) 77.1 % Lymphocytes (%) (Auto) 15.9 % Monocytes (%) (Auto) 6.4 % Eosinophils (%) (Auto) 0.2 % Basophils (%) (Auto) 0.4 % Neutrophils # (Auto) 6.5 TH/MM3 Lymphocytes # (Auto) 1.3 TH/MM3 Monocytes # (Auto) 0.5 TH/MM3 Eosinophils # (Auto) 0.0 TH/MM3 Basophils # (Auto) 0.0 TH/MM3 CBC Comment DIFF FINAL Differential Comment Haptoglobin 237 MG/DL Fibrinogen 323 mg/dL PHYSICAL EXAMINATION GENERAL: No acute distress. HEENT: Head is atraumatic. Extraocular movements grossly intact, pupils reactive to light. No icterus. Oropharynx has mild thrush. NECK: Supple without adenopathy. LUNGS: Clear decreased breath sounds. CHEST: Left breast has a nodular, rubbery mass which is mobile measuring approximately 2 cm x 2 cm at the 4 o'clock position. This is nontender. HEART: Regular S1 and S2 without murmurs, rubs or gallops. ABDOMEN: Bowel sounds present, soft, no tenderness appreciated. EXTREMITIES: No clubbing, cyanosis or edema. SKIN: No rash. NEUROLOGIC: No gross focal findings. IMPRESSION 1. Sepsis likely related to IV drug use. Staph aureus. 2. Leukocytosis secondary to sepsis. 3. Left breast lump. 4. Abnormal chest x-ray probably secondary to pneumonia. RECOMMENDATIONS 1. Stop piperacillin/tazobactam. 2. Continue vancomycin. Adjustment of antibiotic if staph is sensitive strain. 3. Stop Fluconazole. 4. Monitor blood cultures. 4. Monitor clinical status. 5. Left breast lump/mass. Can be evaluated by medical specialty. It is not tender and does not appear to be an infection. Chris Berrios MD Mar 01, 2017 12:02
[2017-03-01] MEDS ORDERED: PHARMACY ORDERED LAB ONE (12:45)
--- NOTE | 2017-03-01 13:10 | HHI.HCPN ---
Reason for visit a. To assist with evaluation and management of symptoms including: Debility , shortness of breath. b. To assist medical decision maker(s) with: better understanding of current medical conditions; weighing benefits/burdens of medical treatment options; making medical treatment decisions. . Subjective/Interval History Palliative care follow up for clarifications of goals of care, ongoing emotional support. Patient seen in surgical ICU. She was found resting in bed in no acute distress. Ill appearing, tearful. Patient alert and oriented x self, place and situation. Patient endorsing "not feeling well". Denies nausea or vomiting. Last bowel movement earlier this morning. Reports feeling weak and tired. Patient reports last IV drug use prior to ED arrival. Reports that her usual withdrawal symptoms include fever and tremors, denies tremors or anxiety at this time. Patient afebrile, systolic blood pressure improved from yesterday. Currently SBP in the low 100s. Tolerating O2 via nasal cannula 2 L , oxygen saturation in the high 90s. Patient reports that she was unable to receive completed blood transfusion yesterday secondary to "not feeling well". Hemoglobin this morning 6.2 from 6.8 last night. Potassium 3.2. Albumin 1.5. Reviewed with patient clinical course and current medical management. Hematology oncology, Dr. Ramos consulted on 02/28/17 for evaluation of severe anemia. Hemoccult negative. Hematology recommending cardiology consultation for evaluation of right ventricular thrombus. Patient with positive blood cultures for staph Aureus, gram-positive cocci. ID, Dr. Berrios following. Patient was encouraged to contact her 2 children and to continue goals of care conversation with her family. Advance directives completed, aggressive goals at this time. Patient verbalized that she may return to [place] soon. Ongoing emotional support and active listening provided. . Family/friend interactions No family present during my visit. . Advance Directives Living Will: Never completed Health Care Surrogate: Copy in medical record Durable Power of Orthotic/Prosthetic Practitioner: Never completed Advance Directive Specifics Date completed: 02/28/2017. . Health Care Surrogate(s): Primary healthcare surrogate is patient's daughter Raissa Coleman, alternate surrogate his son Gallito Silverman. . Significant change in goals: FULL code. Aggressive goals. . Objective Vital Signs Date Time Temp Pulse Resp B/P (MAP) Pulse Ox O2 Delivery O2 Flow Rate FiO2 03/01/17 12:26 97.4 100 22 103/65 98 03/01/17 10:00 83 03/01/17 08:00 69 03/01/17 08:00 97.4 70 28 100/57 (71) 100 03/01/17 07:57 100 Nasal Cannula 2.00 03/01/17 07:00 Nasal Cannula 2.00 03/01/17 06:00 64 03/01/17 04:00 97.8 80 28 108/64 (79) 98 03/01/17 04:00 80 03/01/17 02:00 82 03/01/17 00:00 97.8 86 30 96/56 (69) 100 03/01/17 00:00 86 02/28/17 22:00 82 02/28/17 20:00 100 02/28/17 20:00 99.5 100 31 95/54 (68) 99 02/28/17 19:37 98 Nasal Cannula 2.00 02/28/17 19:00 100 Nasal Cannula 4.00 02/28/17 18:00 126 02/28/17 17:45 100.8 131 42 129/89 100 02/28/17 17:30 98.1 89 24 109/63 100 02/28/17 16:18 100 Nasal Cannula 2.00 02/28/17 16:00 98.1 78 22 86/50 (62) 100 02/28/17 16:00 78 02/28/17 14:00 82 Intake & Output 03/01/17 03/01/17 07:00 19:00 Intake Total 890 ml Balance 890 ml Intake IV Total 890 ml # Voids 9 # Bowel Movements 3 Physical Exam CONSTITUTIONAL/GENERAL: This is a thin, ill appearing female resting in bed in no apparent distress. TUBES/LINES/DRAINS: PIV's, nasal cannula. SKIN: No jaundice or lesions. Skin temperature appropriate. Not diaphoretic. Patchy discoloration to skin on face, torso. HEAD: Atraumatic. Normocephalic. EYES: Pupils equal and round and reactive. Extraocular motions intact. No scleral icterus. No injection or drainage. ENT: Hearing grossly normal. Nose without bleeding or purulent drainage. Moist oral mucosa. NECK: Trachea midline. Supple, nontender. CARDIOVASCULAR: Regular rate and rhythm without murmurs. Peripheral pulses symmetric. RESPIRATORY/CHEST: Symmetric, unlabored respirations. Clear to auscultation. Breath sounds equal bilaterally. No wheezes, rales, or rhonchi. GASTROINTESTINAL: Abdomen non-tender, mildly distended. No guarding. Bowel sounds present. GENITOURINARY: Without palpable bladder distension. MUSCULOSKELETAL: Extremities without clubbing, cyanosis. Trace edema to bilateral lower extremities. NEUROLOGICAL: Awake and alert. Motor and sensory grossly within normal limits. Follows commands. Cognitively sharp. Moves all extremities. PSYCHIATRIC: Anxious, tearful. . Diagnostic Tests Laboratory Laboratory Tests Test 02/27/17 23:55 02/28/17 00:10 02/28/17 00:30 02/28/17 04:10 Lactic Acid Level 2.4 mmol/L (0.4-2.0) Urine Color YELLOW (YELLW/STRAW) Urine Turbidity HAZY (CLEAR) Urine pH 5.5 (5.0-8.5) Urine Specific [place] 1.018 (1.002-1.035) Urine Protein 30 mg/dL (NEG-TRACE) Urine Glucose (UA) NEG mg/dL (NEG) Urine Ketones NEG mg/dL (NEG) Urine Occult Blood MOD (NEG) Urine Nitrite NEG (NEG) Urine Bilirubin NEG (NEG) Urine Urobilinogen LESS THAN 2.0 MG/DL (LESS Urine Leukocyte Esterase NEG (NEG) Urine RBC 3 /hpf (0-3) Urine WBC 4 /hpf (0-5) Urine Squamous Epithelial Cells 9 /hpf (0-5) Urine Hyaline Casts 13 /lpf (RARE) Urine Granular Casts 4 /lpf (NONE) Urine Mucus FEW /lpf (OCC) Microscopic Urinalysis Comment CULT NOT INDICATED White Blood Count 13.9 TH/MM3 (4.0-11.0) Red Blood Count 2.81 MIL/MM3 (4.00-5.30) Hemoglobin 8.1 GM/DL (11.6-15.3) Hematocrit 23.5 % (35.0-46.0) Mean Corpuscular Volume 83.8 FL (80.0-100.0) Mean Corpuscular Hemoglobin 28.9 PG (27.0-34.0) Mean Corpuscular Hemoglobin Concent 34.5 % (32.0-36.0) Red Cell Distribution Width 14.6 % (11.6-17.2) Platelet Count 221 TH/MM3 (150-450) Mean Platelet Volume 7.6 FL (7.0-11.0) Neutrophils (%) (Auto) 87.7 % (16.0-70.0) Lymphocytes (%) (Auto) 7.8 % (9.0-44.0) Monocytes (%) (Auto) 4.0 % (0.0-8.0) Eosinophils (%) (Auto) 0.2 % (0.0-4.0) Basophils (%) (Auto) 0.3 % (0.0-2.0) Neutrophils # (Auto) 12.2 TH/MM3 (1.8-7.7) Lymphocytes # (Auto) 1.1 TH/MM3 (1.0-4.8) Monocytes # (Auto) 0.6 TH/MM3 (0-0.9) Eosinophils # (Auto) 0.0 TH/MM3 (0-0.4) Basophils # (Auto) 0.0 TH/MM3 (0-0.2) CBC Comment DIFF FINAL Differential Comment Erythrocyte Sedimentation Rate GREATER THAN 140 mm/hr Prothrombin Time 13.9 SEC (9.8-11.6) Prothromb Time International Ratio 1.4 RATIO Activated Partial Thromboplast Time 30.2 SEC (24.3-30.1) Blood Urea Nitrogen 16 MG/DL (7-18) Creatinine 1.08 MG/DL (0.50-1.00) Random Glucose 82 MG/DL (74-106) Total Protein 8.2 GM/DL (6.4-8.2) Albumin 2.3 GM/DL (3.4-5.0) Calcium Level 8.4 MG/DL (8.5-10.1) Magnesium Level 1.8 MG/DL (1.5-2.5) Alkaline Phosphatase 153 U/L (45-117) Aspartate Amino Transf (AST/SGOT) 77 U/L (15-37) Alanine Aminotransferase (ALT/SGPT) 93 U/L (10-53) Total Bilirubin 0.5 MG/DL (0.2-1.0) Sodium Level 122 MEQ/L (136-145) Potassium Level 4.0 MEQ/L (3.5-5.1) Chloride Level 88 MEQ/L (98-107) Carbon Dioxide Level 25.1 MEQ/L (21.0-32.0) Anion Gap 9 MEQ/L (5-15) Estimat Glomerular Filtration Rate 56 ML/MIN (>89) Total Creatine Kinase 67 U/L (26-192) Troponin I LESS THAN 0.02 NG/ML B-Type Natriuretic Peptide 54 PG/ML (0-100) Lipase 60 U/L (73-393) Thyroid Stimulating Hormone 3rd Gen 1.180 uIU/ML (0.358-3.740) Hepatitis A IgM Antibody NEGATIVE (NEGATIVE) Hepatitis B Surface Antigen NEGATIVE (NEGATIVE) Hepatitis B Core IgM Antibody NEGATIVE (NEGATIVE) Hepatitis C Antibody REACTIVE (NEGATIVE) Test 02/28/17 04:12 02/28/17 05:15 02/28/17 08:24 02/28/17 08:45 Lactic Acid Level 1.8 mmol/L (0.4-2.0) Blood Gas Puncture Site RT RADIAL Blood Gas Patient Temperature 37.0 Blood Gas HCO3 25 mmol/L (22-26) Blood Gas Base Excess 1.6 mmol/L (-2-2) Blood Gas Oxygen Saturation 94 % (90-100) Arterial Blood pH 7.49 (7.380-7.420) Arterial Blood Partial Pressure CO2 33 mmHg (38-42) Arterial Blood Partial Pressure O2 81 mmHG (61-120) Arterial Blood Oxygen Content 9.3 Vol % (12.0-20.0) Arterial Blood Carboxyhemoglobin 2.5 % (0-4) Arterial Blood Methemoglobin 0.5 % (0-2) Blood Gas Hemoglobin 6.9 G/DL (12.0-16.0) Oxygen Delivery Device NASAL CANNULA Blood Gas Liter Flow 2 L/M Blood Urea Nitrogen 12 MG/DL (7-18) Creatinine 0.82 MG/DL (0.50-1.00) Random Glucose 99 MG/DL (74-106) Calcium Level 7.5 MG/DL (8.5-10.1) Sodium Level 128 MEQ/L (136-145) Potassium Level 3.5 MEQ/L (3.5-5.1) Chloride Level 98 MEQ/L (98-107) Carbon Dioxide Level 21.9 MEQ/L (21.0-32.0) Anion Gap 8 MEQ/L (5-15) Estimat Glomerular Filtration Rate 77 ML/MIN (>89) Urine Opiates Screen POS (NEG) Urine Barbiturates Screen NEG (NEG) Urine Amphetamines Screen NEG (NEG) Urine Benzodiazepines Screen NEG (NEG) Urine Cocaine Screen POS (NEG) Urine Cannabinoids Screen NEG (NEG) Test 02/28/17 09:59 02/28/17 12:25 02/28/17 15:13 02/28/17 19:00 Hemoglobin 6.8 GM/DL (11.6-15.3) 6.8 GM/DL (11.6-15.3) 6.8 GM/DL (11.6-15.3) Hematocrit 20.4 % (35.0-46.0) 20.5 % (35.0-46.0) 20.3 % (35.0-46.0) Total Bilirubin 0.7 MG/DL (0.2-1.0) Direct Bilirubin 0.3 MG/DL (0.0-0.2) Indirect Bilirubin 0.4 MG/DL (0.0-0.8) Aspartate Amino Transf (AST/SGOT) 54 U/L (15-37) Alanine Aminotransferase (ALT/SGPT) 64 U/L (10-53) Alkaline Phosphatase 132 U/L (45-117) Total Protein 6.6 GM/DL (6.4-8.2) Albumin 1.7 GM/DL (3.4-5.0) Lipase 45 U/L (73-393) HIV (1&2) Antibody NEGATIVE (NEGATIVE) Blood Urea Nitrogen 10 MG/DL (7-18) 11 MG/DL (7-18) Creatinine 0.77 MG/DL (0.50-1.00) 0.87 MG/DL (0.50-1.00) Random Glucose 96 MG/DL (74-106) 106 MG/DL (74-106) Calcium Level 7.9 MG/DL (8.5-10.1) 7.5 MG/DL (8.5-10.1) Sodium Level 131 MEQ/L (136-145) 132 MEQ/L (136-145) Potassium Level 3.9 MEQ/L (3.5-5.1) 3.7 MEQ/L (3.5-5.1) Chloride Level 99 MEQ/L (98-107) 99 MEQ/L (98-107) Carbon Dioxide Level 25.3 MEQ/L (21.0-32.0) 26.4 MEQ/L (21.0-32.0) Anion Gap 7 MEQ/L (5-15) 7 MEQ/L (5-15) Estimat Glomerular Filtration Rate 83 ML/MIN (>89) 72 ML/MIN (>89) White Blood Count 9.6 TH/MM3 (4.0-11.0) 10.4 TH/MM3 (4.0-11.0) Red Blood Count 2.44 MIL/MM3 (4.00-5.30) 2.44 MIL/MM3 (4.00-5.30) Mean Corpuscular Volume 84.0 FL (80.0-100.0) 83.2 FL (80.0-100.0) Mean Corpuscular Hemoglobin 27.7 PG (27.0-34.0) 27.8 PG (27.0-34.0) Mean Corpuscular Hemoglobin Concent 33.0 % (32.0-36.0) 33.4 % (32.0-36.0) Red Cell Distribution Width 14.5 % (11.6-17.2) 14.8 % (11.6-17.2) Platelet Count 185 TH/MM3 (150-450) 177 TH/MM3 (150-450) Mean Platelet Volume 7.9 FL (7.0-11.0) 8.0 FL (7.0-11.0) Prothrombin Time 15.2 SEC (9.8-11.6) Prothromb Time International Ratio 1.5 RATIO Activated Partial Thromboplast Time 33.6 SEC (24.3-30.1) 97.5 SEC (24.3-30.1) Iron Level 12 MCG/DL (50-170) Total Iron Binding Capacity 153 MCG/DL (250-450) Percent Iron Saturation 7.9 % (20-50) Ferritin 653 NG/ML (8-252) Vitamin B12 Level 881 PG/ML (193-986) Folate GREATER THAN 20.0 NG/ML Neutrophils (%) (Auto) 89.1 % (16.0-70.0) Lymphocytes (%) (Auto) 5.6 % (9.0-44.0) Monocytes (%) (Auto) 5.0 % (0.0-8.0) Eosinophils (%) (Auto) 0.1 % (0.0-4.0) Basophils (%) (Auto) 0.2 % (0.0-2.0) Neutrophils # (Auto) 9.3 TH/MM3 (1.8-7.7) Lymphocytes # (Auto) 0.6 TH/MM3 (1.0-4.8) Monocytes # (Auto) 0.5 TH/MM3 (0-0.9) Eosinophils # (Auto) 0.0 TH/MM3 (0-0.4) Basophils # (Auto) 0.0 TH/MM3 (0-0.2) CBC Comment DIFF FINAL Differential Comment Test 02/28/17 21:30 03/01/17 01:02 03/01/17 06:25 03/01/17 06:29 Urine Color YELLOW (YELLW/STRAW) Urine Turbidity HAZY (CLEAR) Urine pH 5.0 (5.0-8.5) Urine Specific [place] 1.018 (1.002-1.035) Urine Protein TRACE mg/dL (NEG-TRACE) Urine Glucose (UA) NEG mg/dL (NEG) Urine Ketones NEG mg/dL (NEG) Urine Occult Blood MOD (NEG) Urine Nitrite NEG (NEG) Urine Bilirubin NEG (NEG) Urine Urobilinogen LESS THAN 2.0 MG/DL (LESS Urine Leukocyte Esterase NEG (NEG) Urine RBC 2 /hpf (0-3) Urine WBC 3 /hpf (0-5) Urine Squamous Epithelial Cells 2 /hpf (0-5) Urine Uric Acid Crystals RARE /hpf (NONE) Urine Amorphous Sediment RARE Urine Bacteria MOD /hpf (NONE) Urine Hyaline Casts 3 /lpf (RARE) Urine Mucus FEW /lpf (OCC) Microscopic Urinalysis Comment CULTURE INDICATED Activated Partial Thromboplast Time 29.1 SEC (24.3-30.1) Blood Urea Nitrogen 8 MG/DL (7-18) Creatinine 0.63 MG/DL (0.50-1.00) Random Glucose 112 MG/DL (74-106) Total Protein 5.8 GM/DL (6.4-8.2) Albumin 1.5 GM/DL (3.4-5.0) Calcium Level 7.5 MG/DL (8.5-10.1) Alkaline Phosphatase 102 U/L (45-117) Aspartate Amino Transf (AST/SGOT) 45 U/L (15-37) Alanine Aminotransferase (ALT/SGPT) 51 U/L (10-53) Total Bilirubin 0.4 MG/DL (0.2-1.0) Sodium Level 135 MEQ/L (136-145) Potassium Level 3.2 MEQ/L (3.5-5.1) Chloride Level 102 MEQ/L (98-107) Carbon Dioxide Level 25.3 MEQ/L (21.0-32.0) Anion Gap 8 MEQ/L (5-15) Estimat Glomerular Filtration Rate 104 ML/MIN (>89) White Blood Count 8.4 TH/MM3 (4.0-11.0) Red Blood Count 2.23 MIL/MM3 (4.00-5.30) Hemoglobin 6.2 GM/DL (11.6-15.3) Hematocrit 18.7 % (35.0-46.0) Mean Corpuscular Volume 83.8 FL (80.0-100.0) Mean Corpuscular Hemoglobin 27.9 PG (27.0-34.0) Mean Corpuscular Hemoglobin Concent 33.4 % (32.0-36.0) Red Cell Distribution Width 14.8 % (11.6-17.2) Platelet Count 160 TH/MM3 (150-450) Mean Platelet Volume 7.7 FL (7.0-11.0) Neutrophils (%) (Auto) 77.1 % (16.0-70.0) Lymphocytes (%) (Auto) 15.9 % (9.0-44.0) Monocytes (%) (Auto) 6.4 % (0.0-8.0) Eosinophils (%) (Auto) 0.2 % (0.0-4.0) Basophils (%) (Auto) 0.4 % (0.0-2.0) Neutrophils # (Auto) 6.5 TH/MM3 (1.8-7.7) Lymphocytes # (Auto) 1.3 TH/MM3 (1.0-4.8) Monocytes # (Auto) 0.5 TH/MM3 (0-0.9) Eosinophils # (Auto) 0.0 TH/MM3 (0-0.4) Basophils # (Auto) 0.0 TH/MM3 (0-0.2) CBC Comment DIFF FINAL Differential Comment Haptoglobin 237 MG/DL (30-200) Fibrinogen 323 mg/dL (227-377) Result Diagram: 12/6/17 0629 03/01/17 0625 Microbiology Microbiology Date/Time Source Procedure Growth Status 02/28/17 04:18 Blood Peripheral Aerobic Blood Culture - Preliminary Staphylococcus Aureus Resulted 02/28/17 04:18 Blood Peripheral Anaerobic Blood Culture - Preliminary NO GROWTH IN 1 DAY Resulted 02/28/17 04:05 Blood Peripheral Aerobic Blood Culture - Preliminary NO GROWTH IN 1 DAY Resulted 02/28/17 04:05 Anaerobic Blood Culture - Preliminary Staphylococcus Aureus Resulted 02/28/17 00:45 Blood Peripheral Aerobic Blood Culture - Preliminary Staphylococcus Aureus Resulted 02/28/17 00:45 Anaerobic Blood Culture - Preliminary Gram Positive Cocci Resulted 03/01/17 00:15 Stool Stool Stool Occult Blood (INES) - Final HEMOCCULT NEGATIVE Complete 02/28/17 21:30 Urine Clean Catch Urine Culture Pending Received Imaging Last 24 hours Impressions Lower Extremity Ultrasound 02/28/17 0914 Signed Impressions: Service Date/Time: Tuesday, February 28, 2017 00:53 - CONCLUSION: Negative exam with no evidence of deep venous thrombosis. Nacho Brian MD Assessment and Plan Disease Oriented Problem List: (1) Sepsis (2) Pneumonia (3) Anemia (4) IV drug abuse Symptom Scale: (1) Shortness of breath 0-10 Scale: 0 Comment: Secondary to acute illness, anemia. (2) Debility 0-10 Scale: Unable to quantify Comment: Secondary to acute illness, sepsis, anemia. Pertinent Non-Medical Issues Psychosocial: Patient originally from [facility]. Unemployed. , has 2 adult children who residing [place]. Planning to return to [place] mid-February. No service. Spiritual: [employer] tonya. Legal: Advance directives completed. Ethical issues impacting care: No ethical issues have been identified. . Important Contacts Patient's daughter Raissa Coleman Patient's son Gallito Silverman . Prognosis Mrs. Coleman is a 42-year-old female with a medical history significant for IV drug abuse, COPD and melanoma. Patient presented to ED on 02/27/17 with a history of not feeling well for the prior 2 weeks. Patient endorsing intermittent nausea, vomiting and diarrhea as well as 12lbs weight loss and lower extremity edema. Patient with a history of IV drug use to include injected Pavithra, heroin and hydromorphone. Patient was admitted for further management of sepsis, anasarca and oral thrush. Patient at high risk for further complications, continue decline and . . Code Status: Full Code Plan * CODE STATUS: FULL code. * HEALTHCARE DECISION-MAKING: Patient participating in medical decision-making. She appears to retain the ability to weight benefits versus burden of treatment options. Has designated her daughter Raissa as primary healthcare surrogate decision-maker, alternate is her son Glalito Silverman. * GOALS OF CARE: Patient electing aggressive medical management to include FULL code. Patient receptive to ongoing goals of care conversation. * SYMPTOMS: = Shortness of breath: Secondary to acute illness, acute anemia, sepsis. Currently tolerating O2 via nasal cannula 2 L. Pending transfusion of PRBC. = Debility, secondary to acute illness. * Going emotional support and active listening provided. * Palliative care contact information has been provided to patient. * Palliative care will continue to follow-up for further clarifications of goals of care as patient's clinical course continues to evolve. . Time Spent Total Floor Time (mins): 26 (Total time to include review medical records, physical exam, goals of care conversation with patient.) >50% Counseling/Coord of Care: Yes Attestation To help prompt me to consider important information that might be impacting today's encounter and assessment, information from prior notes written by myself or my colleagues may have been "brought forward" into today's note. My signature on this note, however, is an attestation that I personally performed the exam, history, and/or decision-making noted today, and, unless otherwise indicated, the interactions with patient, family, and staff as well as the review of records all occurred today. I also attest that the listed assessment and stated plan reflect my best clinical judgment today based on the combination of historical information, prior notes, and today's exam/ interactions. When time spent is documented, it refers only to time spent today by the signer, or if indicated, combined time spent today by collaborating physician/nurse practitioner. Smita Franco Mar 01, 2017 13:10
[2017-03-01] MEDS: IRON SUCROSE INJ 200 MG in SODIUM CHLORIDE 0.9% INJ 100 ML IV SCH (13:21)
--- NOTE | 2017-03-01 13:22 | HHI.PR ---
Subjective Remarks currently denies any pain or discomfort states good po, no difficulty swallowing states history of chronic anemia n the past was taking Iron supplements denies any melena or hematochezia or any vaginal bleeding no periods for about 4 yers now Objective Vitals Vital Signs Date Time Temp Pulse Resp B/P (MAP) Pulse Ox O2 Delivery O2 Flow Rate FiO2 03/01/17 12:26 97.4 100 22 103/65 98 03/01/17 10:00 83 03/01/17 08:00 69 03/01/17 08:00 97.4 70 28 100/57 (71) 100 03/01/17 07:57 100 Nasal Cannula 2.00 03/01/17 07:00 Nasal Cannula 2.00 03/01/17 06:00 64 03/01/17 04:00 97.8 80 28 108/64 (79) 98 03/01/17 04:00 80 03/01/17 02:00 82 03/01/17 00:00 97.8 86 30 96/56 (69) 100 03/01/17 00:00 86 02/28/17 22:00 82 02/28/17 20:00 100 02/28/17 20:00 99.5 100 31 95/54 (68) 99 02/28/17 19:37 98 Nasal Cannula 2.00 02/28/17 19:00 100 Nasal Cannula 4.00 02/28/17 18:00 126 02/28/17 17:45 100.8 131 42 129/89 100 02/28/17 17:30 98.1 89 24 109/63 100 02/28/17 16:18 100 Nasal Cannula 2.00 02/28/17 16:00 98.1 78 22 86/50 (62) 100 02/28/17 16:00 78 02/28/17 14:00 82 I/O 02/28/17 02/28/17 02/28/17 03/01/17 03/01/17 03/01/17 07:00 15:00 23:00 07:00 15:00 23:00 Intake Total 2300 ml 1450 ml 200 ml 790 ml Balance 2300 ml 1450 ml 200 ml 790 ml Intake IV Total 2300 ml 1450 ml 100 ml 790 ml Packed Cells 50 ml Blood Product IV Normal Saline Flush 50 ml # Voids 5 9 # Bowel Movements 2 3 Result Diagram: 03/01/17 0629 03/01/17 0625 Imaging pale looking, anicteric no nuchal rigidity left breast with mass, non tender decrease breath sounds, no rales regular rhythm abdomen soft, nontender extremities no edema neuro exam- non focal A/P Assessment and Plan 41 years old female S aureus sepsis - history of IVDU -on IV Vancomycin. - ID ff. ff final cultures and sensitivity RV thrombus- secondary to IVDU - on heparin drip - ff H and H on heparin drip - cardiology consulted Severe Iron deficiency anemia- per patient chronic history of iron deficiency - denies any vaginal bleeding, GI bleeding- stools black from po Iron - S/P blood transfusion - S/P IV Venofer x 3 - last dose today - Hematology ff along with us Oral thrush - Nystatin S/S qid Left breast lump - non tender - get an US- may be done as OP palliative care consult as pt would likely deteriorate while in hospital pt has a daughter in [place]- contact info in her cell- phone being charged- orders written for Nursing to get that number once phone is charged and to put it on file will need to inform daughter of pt's staus- pt agrees dvt prophylaxis - on Heparin for RV thrombus June Ramos MD Mar 01, 2017 13:22
--- NOTE | 2017-03-01 13:40 | PD.ONC.PN ---
Subjective Subjective Remarks Afebrile Reports feeling tired Denies shortness of breath No bleeding Objective Data Date Time Temp Pulse Resp B/P (MAP) Pulse Ox O2 Delivery O2 Flow Rate FiO2 03/01/17 12:26 97.4 100 22 103/65 98 03/01/17 10:00 83 03/01/17 08:00 69 03/01/17 08:00 97.4 70 28 100/57 (71) 100 03/01/17 07:57 100 Nasal Cannula 2.00 03/01/17 07:00 Nasal Cannula 2.00 03/01/17 06:00 64 03/01/17 04:00 97.8 80 28 108/64 (79) 98 03/01/17 04:00 80 03/01/17 02:00 82 03/01/17 00:00 97.8 86 30 96/56 (69) 100 03/01/17 00:00 86 02/28/17 22:00 82 02/28/17 20:00 100 02/28/17 20:00 99.5 100 31 95/54 (68) 99 02/28/17 19:37 98 Nasal Cannula 2.00 02/28/17 19:00 100 Nasal Cannula 4.00 02/28/17 18:00 126 02/28/17 17:45 100.8 131 42 129/89 100 02/28/17 17:30 98.1 89 24 109/63 100 02/28/17 16:18 100 Nasal Cannula 2.00 02/28/17 16:00 98.1 78 22 86/50 (62) 100 02/28/17 16:00 78 02/28/17 14:00 82 03/01/17 03/01/17 03/01/17 07:00 15:00 23:00 Intake Total 790 ml Balance 790 ml Result Diagram: 03/01/17 0629 03/01/17 0625 Laboratory Results Laboratory Tests Test 02/28/17 15:13 02/28/17 19:00 02/28/17 21:30 03/01/17 01:02 White Blood Count 9.6 TH/MM3 10.4 TH/MM3 Red Blood Count 2.44 MIL/MM3 2.44 MIL/MM3 Hemoglobin 6.8 GM/DL 6.8 GM/DL Hematocrit 20.5 % 20.3 % Mean Corpuscular Volume 84.0 FL 83.2 FL Mean Corpuscular Hemoglobin 27.7 PG 27.8 PG Mean Corpuscular Hemoglobin Concent 33.0 % 33.4 % Red Cell Distribution Width 14.5 % 14.8 % Platelet Count 185 TH/MM3 177 TH/MM3 Mean Platelet Volume 7.9 FL 8.0 FL Prothrombin Time 15.2 SEC Prothromb Time International Ratio 1.5 RATIO Activated Partial Thromboplast Time 33.6 SEC 97.5 SEC 29.1 SEC Blood Urea Nitrogen 11 MG/DL Creatinine 0.87 MG/DL Random Glucose 106 MG/DL Calcium Level 7.5 MG/DL Sodium Level 132 MEQ/L Potassium Level 3.7 MEQ/L Chloride Level 99 MEQ/L Carbon Dioxide Level 26.4 MEQ/L Anion Gap 7 MEQ/L Estimat Glomerular Filtration Rate 72 ML/MIN Iron Level 12 MCG/DL Total Iron Binding Capacity 153 MCG/DL Percent Iron Saturation 7.9 % Ferritin 653 NG/ML Vitamin B12 Level 881 PG/ML Folate GREATER THAN 20.0 NG/ML Neutrophils (%) (Auto) 89.1 % Lymphocytes (%) (Auto) 5.6 % Monocytes (%) (Auto) 5.0 % Eosinophils (%) (Auto) 0.1 % Basophils (%) (Auto) 0.2 % Neutrophils # (Auto) 9.3 TH/MM3 Lymphocytes # (Auto) 0.6 TH/MM3 Monocytes # (Auto) 0.5 TH/MM3 Eosinophils # (Auto) 0.0 TH/MM3 Basophils # (Auto) 0.0 TH/MM3 CBC Comment DIFF FINAL Differential Comment Urine Color YELLOW Urine Turbidity HAZY Urine pH 5.0 Urine Specific [place] 1.018 Urine Protein TRACE mg/dL Urine Glucose (UA) NEG mg/dL Urine Ketones NEG mg/dL Urine Occult Blood MOD Urine Nitrite NEG Urine Bilirubin NEG Urine Urobilinogen LESS THAN 2.0 MG/DL Urine Leukocyte Esterase NEG Urine RBC 2 /hpf Urine WBC 3 /hpf Urine Squamous Epithelial Cells 2 /hpf Urine Uric Acid Crystals RARE /hpf Urine Amorphous Sediment RARE Urine Bacteria MOD /hpf Urine Hyaline Casts 3 /lpf Urine Mucus FEW /lpf Microscopic Urinalysis Comment CULTURE INDICATED Test 03/01/17 06:25 03/01/17 06:29 Blood Urea Nitrogen 8 MG/DL Creatinine 0.63 MG/DL Random Glucose 112 MG/DL Total Protein 5.8 GM/DL Albumin 1.5 GM/DL Calcium Level 7.5 MG/DL Alkaline Phosphatase 102 U/L Aspartate Amino Transf (AST/SGOT) 45 U/L Alanine Aminotransferase (ALT/SGPT) 51 U/L Total Bilirubin 0.4 MG/DL Sodium Level 135 MEQ/L Potassium Level 3.2 MEQ/L Chloride Level 102 MEQ/L Carbon Dioxide Level 25.3 MEQ/L Anion Gap 8 MEQ/L Estimat Glomerular Filtration Rate 104 ML/MIN White Blood Count 8.4 TH/MM3 Red Blood Count 2.23 MIL/MM3 Hemoglobin 6.2 GM/DL Hematocrit 18.7 % Mean Corpuscular Volume 83.8 FL Mean Corpuscular Hemoglobin 27.9 PG Mean Corpuscular Hemoglobin Concent 33.4 % Red Cell Distribution Width 14.8 % Platelet Count 160 TH/MM3 Mean Platelet Volume 7.7 FL Neutrophils (%) (Auto) 77.1 % Lymphocytes (%) (Auto) 15.9 % Monocytes (%) (Auto) 6.4 % Eosinophils (%) (Auto) 0.2 % Basophils (%) (Auto) 0.4 % Neutrophils # (Auto) 6.5 TH/MM3 Lymphocytes # (Auto) 1.3 TH/MM3 Monocytes # (Auto) 0.5 TH/MM3 Eosinophils # (Auto) 0.0 TH/MM3 Basophils # (Auto) 0.0 TH/MM3 CBC Comment DIFF FINAL Differential Comment Haptoglobin 237 MG/DL Fibrinogen 323 mg/dL Culture Results Microbiology Date/Time Source Procedure Growth Status 02/28/17 04:18 Blood Peripheral Aerobic Blood Culture - Preliminary Staphylococcus Aureus Resulted 02/28/17 04:18 Blood Peripheral Anaerobic Blood Culture - Preliminary NO GROWTH IN 1 DAY Resulted 02/28/17 04:05 Blood Peripheral Aerobic Blood Culture - Preliminary NO GROWTH IN 1 DAY Resulted 02/28/17 04:05 Anaerobic Blood Culture - Preliminary Staphylococcus Aureus Resulted 02/28/17 00:45 Blood Peripheral Aerobic Blood Culture - Preliminary Staphylococcus Aureus Resulted 02/28/17 00:45 Anaerobic Blood Culture - Preliminary Gram Positive Cocci Resulted 03/01/17 00:15 Stool Stool Stool Occult Blood (INES) - Final HEMOCCULT NEGATIVE Complete 02/28/17 21:30 Urine Clean Catch Urine Culture Pending Received Imaging Studies Last 24 hours Impressions Lower Extremity Ultrasound 02/28/17 1547 Signed Impressions: Service Date/Time: Tuesday, February 28, 2017 00:53 - CONCLUSION: Negative exam with no evidence of deep venous thrombosis. Nacho Brian MD Administered Medications Medications (Trade) Dose Ordered Sig/Piedad Route PRN Reason Start Time Stop Time Status Last Admin Dose Admin Sodium Chloride (NS Flush) 2 ml BID IV FLUSH 02/28/17 09:00 03/01/17 08:30 Nystatin (Mycostatin Liq) 5 ml QID SWISH-SWAL 02/28/17 09:00 03/01/17 13:21 Vancomycin HCl 1000 mg/Sodium Chloride 250 ml @ 250 mls/hr Q12H IV 02/28/17 13:00 03/01/17 13:20 Heparin Sodium/ Dextrose 250 ml @ 9 mls/hr TITRATE PRN IV Coagulation Management 02/28/17 13:15 02/28/17 17:09 Acetaminophen (Tylenol) 650 mg Q4H PRN PO pain 1-2/ fever 02/28/17 18:00 02/28/17 23:23 Iron Sucrose 200 mg/Sodium Chloride 110 ml @ 110 mls/hr Q24H IV 03/01/17 13:00 03/03/17 13:59 03/01/17 13:21 Objective Remarks GENERAL: Younger female, resting in bed in no acute distress SKIN: Warm and dry. HEAD: Normocephalic. EYES: No injection or drainage. NECK: Supple, trachea midline. CARDIOVASCULAR: + S1/S2. No murmur noted RESPIRATORY: Breath sounds equal bilaterally. On 2 L nasal cannula GASTROINTESTINAL: Abdomen soft, non-tender, nondistended. EXTREMITIES: No cyanosis. MUSCULOSKELETAL: Adequate muscle tone. NEUROLOGICAL: No obvious focal deficit. Awake, alert, and oriented x3. Assessment/Plan Problem List: (1) Anemia ICD Codes: D64.9 - Anemia, unspecified Plan: -- Severe anemia due to iron deficiency -- Also has anemia of chronic inflammation -- Hemoccult negative -- Closely monitor CBC while on heparin drip (2) Right ventricular thrombus without IA ICD Codes: I51.3 - Intracardiac thrombosis, not elsewhere classified Plan: -- The patient had an echocardiogram that revealed a 1 x 1.4 cm echogenic structure in the right ventricle most likely representing a thrombus. -- Cardiology consulted -- On heparin drip -- Bilateral lower extremity ultrasound shows no evidence of DVT (3) Sepsis ICD Codes: A41.9 - Sepsis, unspecified organism Plan: -- On Vanco -- ID following -- Blood cultures positive for staph aureus (4) Breast lump ICD Codes: N63.0 - Unspecified lump in unspecified breast Plan: -- Plan for workup as outpatient Assessment 41 y/o female with history of IV drug abuse admitted with edema and shortness of breath found to be severely anemic and also with thrombus to right ventricle Plan 1. Give premeds today prior to red blood cell transfusion 2. Start iron sucrose 200 mg IV daily 3 days for severe iron deficiency anemia 3. Monitor CBC 4. Continue heparin drip 5. Cardiology consulted for likely thrombus in right ventricle Discussed with [employer] Attending Statement The exam, history, and the medical decision-making described in the above note were completed with the assistance of the mid-level provider. I reviewed and agree with the findings presented. I attest that I had a [id number] encounter with the patient on the same day, and personally performed and documented my assessment and findings in the medical record acutely ill patient with Staph aureus bacteremia, sepsis and intracardiac thrombus Severely anemic Transfuse 2 units of pRBC with premeds Blood cx positive start IV vancomycin orders given to RN stool heme-occult negative Hep C positive Urine positive for cocaine and opiates no evidence of hemolysis Direct Terry positive cardiology evaluation for NELSY d/w rn o/n events reviewed Kayleigh Norris Mar 01, 2017 13:40 Ervin Ramos MD Mar 01, 2017 23:37
[2017-03-01 13:58] LABS: INDIRECT BILIRUBIN 0.2 MG/DL (0.0-0.8); TOTAL BILIRUBIN ADULT 0.3 MG/DL (0.2-1.0); VANCOMYCIN TROUGH 12.2 MCG/ML (5.0-10.0)
--- NOTE | 2017-03-01 15:18 | MB ---
cc: SAMANTHA MCCLENDON DATE OF CONSULTATION: 03/01/2017 REASON FOR CONSULTATION Abnormal echocardiogram. HISTORY OF PRESENT ILLNESS This is a 41-year-old female with a history of IV drug abuse. The patient states that over the course of the past few weeks she has had progressive diarrhea in addition to nausea and vomiting. She came into the emergency department with fever, chills and temperature measured 103 degrees. She was slightly hypotensive with elevated lactic count. She was admitted with new opacities at the lung bases with suspicion for pneumonia. She had a transthoracic echocardiogram which revealed a questionable right ventricular echodensity suggestive of a possible thrombus on the moderator band. We are consulted for further recommendations. The patient's last use with IV drug abuse was the day of admission. She denies any prior history of endocarditis. Denies any active chest pain or shortness of breath. PAST MEDICAL HISTORY 1. Bilateral tubal ligation. 2. Laparotomy. 3. Skin cancer. 4. COPD. 5. IV drug abuse. ALLERGIES CIPRO. MEDICATIONS 1. Vancomycin. 2. Piperacillin. 3. Fluconazole. 4. Nystatin. SOCIAL HISTORY Smokes a pack a day. Positive for drug use. No alcohol use. FAMILY HISTORY Denies any family history of early coronary artery disease or sudden cardiac . REVIEW OF SYSTEMS A 12-point review of systems was performed and is negative unless otherwise noted is the history of present illness. PHYSICAL EXAMINATION VITAL SIGNS: Temperature 97.3, pulse 77, blood pressure 104/63 mmHg. GENERAL: Alert and oriented x3, in no acute distress. HEENT: Pupils are reactive to light and accommodation. Extraocular movements are intact. NECK: No jugular venous distention. No thyromegaly. No lymphadenopathy. No carotid bruits. LUNGS: Clear to auscultation bilaterally. CARDIOVASCULAR: Regular rhythm, tachycardic. No murmurs, rubs or gallops. ABDOMEN: Nontender, nondistended. Good bowel sounds. No hepatosplenomegaly. EXTREMITIES: No clubbing, cyanosis or edema. Good peripheral pulses. NEUROLOGIC: Cranial nerves intact. Motor and sensory grossly intact. LABORATORY WBC 8.4, hemoglobin 6.2, platelet count 160. Sodium 135, potassium 3.2, BUN 8, creatinine 0.63. ASSESSMENT 1. Abnormal echocardiogram. 2. History of IV drug abuse. PLAN There is a questionable echodensity in the right ventricle close to the moderator band. This may be involved with subvalvular apparatus of the tricuspid valve. Given her history and risk factors for endocarditis I think transesophageal echocardiogram is necessary to rule out the diagnosis which would ultimately effect duration and management of intravenous antibiotic therapy. The patient is agreeable. Will make her n.p.o. after midnight and plan for transesophageal echo tomorrow. MD RAYN Byrd/JUSTIN /2:43 PM /2:52 PM
[2017-03-01] MEDS: ACETAMINOPHEN 325 MG TAB PO PRN (17:02)
[2017-03-02] VITALS (11 sets, daily range): BP systolic 115–129; BP diastolic 62–74; PULSE 72–92; RESP 18–35; TEMP 97.7–99.4; O2SAT 92–97
[2017-03-02] MEDS: VANCOMYCIN INJ 1,250 MG in SODIUM CHLOR 0.9% 250 ML INJ 250 ML IV SCH ×2 (00:26→13:03)
[2017-03-02 05:48] LABS: AUTOMATED NEUTROPHIL # 9.1 TH/MM3 (1.8-7.7); BASOPHIL % 0.4 % (0.0-2.0); EOSINOPHIL % 0.3 % (0.0-4.0); HEMATOCRIT 28.6 % (35.0-46.0); HEMO FLAGS DIFF FINAL; LYMPH % 11.2 % (9.0-44.0); LYMPHOCYTE # 1.2 TH/MM3 (1.0-4.8); MEAN CORPUSCULAR HEMOGLOBIN 27.8 PG (27.0-34.0); MEAN CORPUSCULAR HGB CONC 34.3 % (32.0-36.0); MONO % 5.6 % (0.0-8.0); NEUT % 82.5 % (16.0-70.0); PLATELET COUNT 227 TH/MM3 (150-450); RED BLOOD COUNT 3.54 MIL/MM3 (4.00-5.30); RED CELL DISTRIBUTION WIDTH 15.6 % (11.6-17.2)
--- NOTE | 2017-03-02 07:49 | HHI.PR ---
Subjective Remarks awake and alert, had a good night no nausea or vomiting appears tachypneic but comfortable Objective Vitals Vital Signs Date Time Temp Pulse Resp B/P (MAP) Pulse Ox O2 Delivery O2 Flow Rate FiO2 03/02/17 06:00 82 03/02/17 04:00 99.4 78 25 115/62 (79) 97 03/02/17 04:00 78 03/02/17 02:00 92 03/02/17 00:00 76 03/02/17 00:00 99.0 76 35 129/74 (92) 94 03/01/17 22:00 86 03/01/17 20:00 92 03/01/17 20:00 98.4 92 31 115/68 (84) 93 03/01/17 19:41 97 21 03/01/17 19:00 98 Nasal Cannula 2.00 03/01/17 18:55 98.2 88 28 96/65 98 03/01/17 18:40 98.1 83 21 112/63 94 03/01/17 18:00 86 03/01/17 16:00 76 03/01/17 16:00 97.4 76 26 113/68 (83) 98 03/01/17 14:00 97.5 77 26 105/65 100 03/01/17 14:00 77 03/01/17 12:40 97.3 80 28 104/63 100 03/01/17 12:26 97.4 100 22 103/65 98 03/01/17 12:00 97.3 78 28 103/63 (76) 99 03/01/17 12:00 78 03/01/17 10:00 83 03/01/17 08:00 69 03/01/17 08:00 97.4 70 28 100/57 (71) 100 03/01/17 07:57 100 Nasal Cannula 2.00 I/O 03/01/17 03/01/17 03/01/17 03/02/17 03/02/17 03/02/17 07:00 15:00 23:00 07:00 15:00 23:00 Intake Total 790 ml 860 ml 1080 ml Balance 790 ml 860 ml 1080 ml Intake Oral 480 ml IV Total 790 ml 460 ml Packed Cells 400 ml 400 ml Blood Product IV Normal Saline Flush 200 ml # Voids 9 7 3 # Bowel Movements 3 7 1 Result Diagram: 12/7/17 0516 03/01/17 0625 Imaging Last Impressions Lower Extremity Ultrasound 02/28/17 2245 Signed Impressions: Service Date/Time: Tuesday, February 28, 2017 00:53 - CONCLUSION: Negative exam with no evidence of deep venous thrombosis. Nacho Brian MD Chest X-Ray 02/27/17 6602 Signed Impressions: Service Date/Time: Tuesday, February 28, 2017 00:23 - CONCLUSION: Midinspiratory study with crowding of the lung vasculature and new opacity at the lung bases right greater than left. This could represent early pneumonia. Nacho Brian MD Objective Remarks awake and alert tachypneic + oral /tongue thrush + breast mass- left breast regular rhythm abdomen - soft, nontender extremities no edema A/P Assessment and Plan 41 years old female S aureus sepsis - history of IVDU -on IV Vancomycin. - ID ff. ff final sensitivity still pending RV thrombus- secondary to IVDU - on heparin drip - ff H and H on heparin drip - cardiology consulted- plan for NELSY today Severe Iron deficiency anemia- S/P transfusion - H and H up - s/p IV Venfoer x 3 bags - per patient chronic history of iron deficiency - denies any vaginal bleeding, GI bleeding- stools black from po Iron - Hematology ff along with us HYpokalemia- got 30 meq po - recheck BMP today Oral thrush - Nystatin S/S qid Left breast lump - non tender - get an US- may be done as OP Tachypneic but maintaining sats- likely from sepsis- - another consideration is Septic emboli - consider CT angiogram after NELSY palliative care consult appreciated- delmy be ff along with us pt has a daughter in [place]- contact info in her cell- phone being charged- orders written for Nursing to get that number once phone is charged and to put it on file will need to inform daughter of pt's status- pt agrees dvt prophylaxis - on Heparin for RV thrombus June Ramos MD Mar 02, 2017 07:49
[2017-03-02] MEDS: NYSTATIN SUSP 500,000 U/5 ML CUP SWISH-SWAL SCH ×4 (08:42→22:05)
[2017-03-02] MEDS: SODIUM CHLORIDE 0.9% FLUSH 10 ML FLUSH IV FLUSH SCH ×2 (08:42→22:05)
--- NOTE | 2017-03-02 10:20 | PD.CARD.PN ---
Subjective Subjective Remarks no complaints Objective Medications Current Medications Medications (Trade) Dose Ordered Sig/Piedad Route Start Time Stop Time Status Last Admin (NS Flush) 2 ml UNSCH PRN IV FLUSH 02/28/17 02:00 (NS Flush) 2 ml BID IV FLUSH 02/28/17 09:00 03/02/17 08:42 (Narcan Inj) 0.4 mg UNSCH PRN IV PUSH 02/28/17 02:00 Pharmacy Profile Note 0 ml @ 0 mls/hr UNSCH OTHER 02/28/17 02:15 (Mycostatin Liq) 5 ml QID SWISH-SWAL 02/28/17 09:00 03/01/17 21:44 Heparin Sodium/ Dextrose 250 ml @ 9 mls/hr TITRATE PRN IV 02/28/17 13:15 02/28/17 17:09 (Tylenol) 650 mg Q4H PRN PO 02/28/17 18:00 03/01/17 17:02 Iron Sucrose 200 mg/Sodium Chloride 110 ml @ 110 mls/hr Q24H IV 03/01/17 13:00 03/03/17 13:59 03/01/17 13:21 Vancomycin HCl 1250 mg/Sodium Chloride 262.5 ml @ 250 mls/hr Q12H IV 03/02/17 01:00 03/02/17 00:26 Miscellaneous Information SPECIFIC LAB TO BE DRAWN:VANCOMYCIN TROUGH DATE TO... ONCE ONCE .XX 03/03/17 12:45 03/03/17 12:46 Vital Signs / I&O Vital Signs Date Time Temp Pulse Resp B/P (MAP) Pulse Ox O2 Delivery O2 Flow Rate FiO2 03/02/17 08:00 73 03/02/17 08:00 99.2 72 26 118/64 (82) 92 03/02/17 07:00 Nasal Cannula 2.00 03/02/17 06:00 82 03/02/17 04:00 99.4 78 25 115/62 (79) 97 03/02/17 04:00 78 03/02/17 02:00 92 03/02/17 00:00 76 03/02/17 00:00 99.0 76 35 129/74 (92) 94 03/01/17 22:00 86 03/01/17 20:00 92 03/01/17 20:00 98.4 92 31 115/68 (84) 93 03/01/17 19:41 97 21 03/01/17 19:00 98 Nasal Cannula 2.00 03/01/17 18:55 98.2 88 28 96/65 98 03/01/17 18:40 98.1 83 21 112/63 94 03/01/17 18:00 86 03/01/17 16:00 76 03/01/17 16:00 97.4 76 26 113/68 (83) 98 03/01/17 14:00 97.5 77 26 105/65 100 03/01/17 14:00 77 03/01/17 12:40 97.3 80 28 104/63 100 03/01/17 12:26 97.4 100 22 103/65 98 03/01/17 12:00 97.3 78 28 103/63 (76) 99 03/01/17 12:00 78 I/O 03/01/17 03/01/17 03/01/17 03/02/17 03/02/17 03/02/17 06:59 14:59 22:59 06:59 14:59 22:59 Intake Total 790 ml 610 ml 1330 ml Balance 790 ml 610 ml 1330 ml Intake Oral 480 ml IV Total 790 ml 210 ml 250 ml Packed Cells 400 ml 400 ml Blood Product IV Normal Saline Flush 200 ml # Voids 9 7 3 # Bowel Movements 3 7 1 Physical Exam GENERAL: SKIN: Warm and dry. HEAD: Normocephalic. EYES: No scleral icterus. No injection or drainage. NECK: Supple, trachea midline. No JVD or lymphadenopathy. CARDIOVASCULAR: Regular rate and rhythm without murmurs, gallops, or rubs. RESPIRATORY: Breath sounds equal bilaterally. No accessory muscle use. GASTROINTESTINAL: Abdomen soft, non-tender, nondistended. MUSCULOSKELETAL: No cyanosis, or edema. BACK: Nontender without obvious deformity. No CVA tenderness. Laboratory Laboratory Tests Test 03/01/17 12:45 03/02/17 05:16 Total Bilirubin 0.3 MG/DL Direct Bilirubin 0.1 MG/DL Indirect Bilirubin 0.2 MG/DL Lactate Dehydrogenase 202 U/L Vancomycin Level Trough 12.2 MCG/ML White Blood Count 11.0 TH/MM3 Red Blood Count 3.54 MIL/MM3 Hemoglobin 9.8 GM/DL Hematocrit 28.6 % Mean Corpuscular Volume 81.0 FL Mean Corpuscular Hemoglobin 27.8 PG Mean Corpuscular Hemoglobin Concent 34.3 % Red Cell Distribution Width 15.6 % Platelet Count 227 TH/MM3 Mean Platelet Volume 7.6 FL Neutrophils (%) (Auto) 82.5 % Lymphocytes (%) (Auto) 11.2 % Monocytes (%) (Auto) 5.6 % Eosinophils (%) (Auto) 0.3 % Basophils (%) (Auto) 0.4 % Neutrophils # (Auto) 9.1 TH/MM3 Lymphocytes # (Auto) 1.2 TH/MM3 Monocytes # (Auto) 0.6 TH/MM3 Eosinophils # (Auto) 0.0 TH/MM3 Basophils # (Auto) 0.0 TH/MM3 CBC Comment DIFF FINAL Differential Comment Imaging NELSY - full report to follow + endocarditis with mobile echodensity (approximately 1 x 2 cm) 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 Mild tricuspid regurgitation. AoV, MV, PV appear free of infection. ID following will sign off call with any questions Allan Garcia MD Mar 02, 2017 10:20
[2017-03-02] MEDS ORDERED: MISCELLANEOUS NURSING INFORMATION XX PRN (10:30)
[2017-03-02 10:39] LABS: BICARBONATE 24.2 MEQ/L (21.0-32.0); POTASSIUM 3.9 MEQ/L (3.5-5.1)
--- NOTE | 2017-03-02 12:22 | ECHRPT ---
Indication: Acute and subacute endocarditis, unspecified CONCLUSIONS Normal left ventricular size and wall thickness. The left ventricular systolic function is normal wi th an estimated ejection fraction in the range of 60-65%. Left ventricular diastolic function parameters a re normal. Mild thickening of the tricuspid valve leaflets. There is mild tricuspid valve regurgitation. The es timated pulmonary arterial pressure is 24.4 mmHg. No tricuspid valve stenosis. Small to moderate sized (1 x 2 cm) mobile vegetation is observed on the subvalvular appartus of the tricuspid valve and along the later al annulus. BP: / HR: 80 Rhythm: Sinus MEASUREMENTS (Male / Female) Normal Values Technical Quality:Excellent DOPPLER TR Peak Velocity 190.0 cm/s Pulmonary Artery Systolic 24.4 mmHg TR Peak Gradient 14.4 mmHg Right Ventricular Systoli 24.4 mmHg Right Atrial Pressure 10.0 mmHg Medications Complications There were no complications prior to, during or in recovery from the transesophag eal echocardiogram.. Proc. Components FINDINGS LEFT VENTRICLE Normal left ventricular size and wall thickness. The left ventricular systolic function is normal wi th an estimated ejection fraction in the range of 60-65%. Left ventricular diastolic function parameters a re normal. RIGHT VENTRICLE Normal right ventricular size and systolic function. LEFT ATRIUM The left atrial size is normal. RIGHT ATRIUM The right atrial size is normal. ATRIAL APPENDAGES Normal left atrial appendage size with no evidence of thrombus formation. ATRIAL SEPTUM Normal atrial septal thickness. No atrial level shunt is demonstrated by color flow Doppler interrogation. AORTA The aortic root and proximal ascending aorta are normal in size on limited imaging. MITRAL VALVE Structurally normal mitral valve. Mild mitral valve regurgitation. No mitral valve stenosis. AORTIC VALVE Trileaflet aortic valve. No aortic valve stenosis or regurgitation. TRICUSPID VALVE Mild thickening of the tricuspid valve leaflets. There is mild tricuspid valve regurgitation. The es timated pulmonary arterial pressure is 24.4 mmHg. No tricuspid valve stenosis. Small to moderate sized (1 x 2 cm) mobile vegetation is observed on the subvalvular appartus of the tricuspid valve and along the later al annulus. VESSELS The inferior vena cava is normal in size. PULMONARY VALVE No pulmonary valve regurgitation or stenosis. PERICADIUM No pericardial effusion. Allan Garcia MD, FACC (Electronically Signed) Final Date:02 March 2017 12:21
[2017-03-02] MEDS: IRON SUCROSE INJ 200 MG in SODIUM CHLORIDE 0.9% INJ 100 ML IV SCH (13:03)
--- NOTE | 2017-03-02 14:34 | PD.ONC.PN ---
Subjective Subjective Remarks Afebrile Tolerated blood transfusion yesterday Had NELSY this morning Mild thickening of the tricuspid valve leaflets. There is mild tricuspid valve regurgitation. The estimated pulmonary arterial pressure is 24.4 mmHg. No tricuspid valve stenosis. Small to moderate sized (1 x 2 cm) mobile vegetation is observed on the subvalvular apparatus of the tricuspid valve and along the lateral annulus. Objective Data Date Time Temp Pulse Resp B/P (MAP) Pulse Ox O2 Delivery O2 Flow Rate FiO2 03/02/17 12:00 97.7 80 24 125/70 (88) 95 03/02/17 12:00 80 03/02/17 11:42 94 Nasal Cannula 2.00 03/02/17 10:00 80 03/02/17 08:00 73 03/02/17 08:00 99.2 72 26 118/64 (82) 92 03/02/17 07:00 Nasal Cannula 2.00 03/02/17 06:00 82 03/02/17 04:00 99.4 78 25 115/62 (79) 97 03/02/17 04:00 78 03/02/17 02:00 92 03/02/17 00:00 76 03/02/17 00:00 99.0 76 35 129/74 (92) 94 03/01/17 22:00 86 03/01/17 20:00 92 03/01/17 20:00 98.4 92 31 115/68 (84) 93 03/01/17 19:41 97 21 03/01/17 19:00 98 Nasal Cannula 2.00 03/01/17 18:55 98.2 88 28 96/65 98 03/01/17 18:40 98.1 83 21 112/63 94 03/01/17 18:00 86 03/01/17 16:00 76 03/01/17 16:00 97.4 76 26 113/68 (83) 98 Result Diagram: 03/02/17 0516 03/02/1721 Laboratory Results Laboratory Tests Test 03/02/17 05:16 03/02/17 09:21 White Blood Count 11.0 TH/MM3 Red Blood Count 3.54 MIL/MM3 Hemoglobin 9.8 GM/DL Hematocrit 28.6 % Mean Corpuscular Volume 81.0 FL Mean Corpuscular Hemoglobin 27.8 PG Mean Corpuscular Hemoglobin Concent 34.3 % Red Cell Distribution Width 15.6 % Platelet Count 227 TH/MM3 Mean Platelet Volume 7.6 FL Neutrophils (%) (Auto) 82.5 % Lymphocytes (%) (Auto) 11.2 % Monocytes (%) (Auto) 5.6 % Eosinophils (%) (Auto) 0.3 % Basophils (%) (Auto) 0.4 % Neutrophils # (Auto) 9.1 TH/MM3 Lymphocytes # (Auto) 1.2 TH/MM3 Monocytes # (Auto) 0.6 TH/MM3 Eosinophils # (Auto) 0.0 TH/MM3 Basophils # (Auto) 0.0 TH/MM3 CBC Comment DIFF FINAL Differential Comment Blood Urea Nitrogen 6 MG/DL Creatinine 0.64 MG/DL Random Glucose 88 MG/DL Calcium Level 7.7 MG/DL Sodium Level 136 MEQ/L Potassium Level 3.9 MEQ/L Chloride Level 104 MEQ/L Carbon Dioxide Level 24.2 MEQ/L Anion Gap 8 MEQ/L Estimat Glomerular Filtration Rate 102 ML/MIN Culture Results Microbiology Date/Time Source Procedure Growth Status 02/28/17 04:18 Blood Peripheral Aerobic Blood Culture - Final Staphylococcus Aureus Resulted 02/28/17 04:18 Blood Peripheral Anaerobic Blood Culture - Preliminary NO GROWTH IN 2 DAYS Resulted 02/28/17 04:05 Blood Peripheral Aerobic Blood Culture - Preliminary NO GROWTH IN 2 DAYS Resulted 02/28/17 04:05 Anaerobic Blood Culture - Final Staphylococcus Aureus Resulted 02/28/17 00:45 Blood Peripheral Aerobic Blood Culture - Final Staphylococcus Aureus Complete 02/28/17 00:45 Anaerobic Blood Culture - Final Staphylococcus Aureus Complete 03/01/17 00:15 Stool Stool Stool Occult Blood (INES) - Final HEMOCCULT NEGATIVE Complete 02/28/17 21:30 Urine Clean Catch Urine Culture - Final NO GROWTH IN 48 HOURS. Complete Administered Medications Medications (Trade) Dose Ordered Sig/Piedad Route PRN Reason Start Time Stop Time Status Last Admin Dose Admin Sodium Chloride (NS Flush) 2 ml BID IV FLUSH 02/28/17 09:00 03/02/17 08:42 Nystatin (Mycostatin Liq) 5 ml QID SWISH-SWAL 02/28/17 09:00 03/02/17 13:03 Heparin Sodium/ Dextrose 250 ml @ 9 mls/hr TITRATE PRN IV Coagulation Management 02/28/17 13:15 02/28/17 17:09 Acetaminophen (Tylenol) 650 mg Q4H PRN PO pain 1-2/ fever 02/28/17 18:00 03/01/17 17:02 Iron Sucrose 200 mg/Sodium Chloride 110 ml @ 110 mls/hr Q24H IV 03/01/17 13:00 03/03/17 13:59 03/02/17 13:03 Objective Remarks GENERAL: Younger female, resting in bed in no acute distress SKIN: Warm and dry. HEAD: Normocephalic. EYES: No injection or drainage. NECK: Supple, trachea midline. CARDIOVASCULAR: + S1/S2. No murmur noted RESPIRATORY: Breath sounds equal bilaterally. On 2 L nasal cannula GASTROINTESTINAL: Abdomen soft, non-tender, nondistended. EXTREMITIES: No cyanosis. No edema MUSCULOSKELETAL: Adequate muscle tone. NEUROLOGICAL: No obvious focal deficit. Awake, alert, and oriented x3. Assessment/Plan Problem List: (1) Anemia ICD Codes: D64.9 - Anemia, unspecified Plan: -- Severe anemia due to iron deficiency -- Also has anemia of chronic inflammation -- Hemoccult negative -- Closely monitor CBC (2) Right ventricular thrombus without MD ICD Codes: I51.3 - Intracardiac thrombosis, not elsewhere classified Status: Resolved Plan: -- The patient had an echocardiogram that revealed a 1 x 1.4 cm echogenic structure in the right ventricle most likely representing a thrombus. -- NELSY however shows that this is a mobile echodensity (approximately 1 x 2 cm) consistent with vegetative mass on the subvalvular apparatus of the tricuspid valve (3) Sepsis ICD Codes: A41.9 - Sepsis, unspecified organism Plan: -- On oxacillin -- ID following -- Blood cultures positive for staph aureus (4) Breast lump ICD Codes: N63.0 - Unspecified lump in unspecified breast Plan: -- Plan for workup as outpatient Assessment 41 y/o female with history of IV drug abuse admitted with edema and shortness of breath found to be severely anemic and also with thrombus to right ventricle Plan 1. continue heparin drip --patient with cardiac vegetation 2. Continue iron for total of 3 days 3. Monitor CBC 4. Continue antibiotics per infectious disease for endocarditis Discussed with TURN OUT WORKER Attending Statement The exam, history, and the medical decision-making described in the above note were completed with the assistance of the mid-level provider. I reviewed and agree with the findings presented. I attest that I had a [id number] encounter with the patient on the same day, and personally performed and documented my assessment and findings in the medical record Kayleigh Norris Mar 02, 2017 14:34 Ervin Ramos MD Mar 02, 2017 22:16
--- NOTE | 2017-03-02 14:39 | HHI.HCPN ---
Met with Ms. Coleman for follow-up support and ongoing conversations regarding goals of care. She is currently lying in bed, no apparent distress, alert, oriented, and able to make her needs known. She presents with a flat affect, answers questions appropriately, and verbalizes disappointment with current medical condition. Reports she is feeling better from previous days. Ms. Coleman has spoken with the medical team and understands she is going to be in the hospital for 4 weeks. Wishes to proceed with 4 week treatment course. Inquired about her children's awareness of new medical findings; she does not wish for them to be updated at this time. Reports she has not spoken with them and does not want the medical team to speak with them right now. Verbalizes sadness with kahlil Urrutia as she had plans to return to [place] with her daughter. Offered emotional support. She did not wish to further engage in conversation. Appreciates visit and welcomes ongoing support from palliative care team. Left contact information. Palliative care will continue to follow throughout hospitalization. Kristin Herndon, FLOORING MACHINE FEEDER Mar 02, 2017 14:39
--- NOTE | 2017-03-02 14:39 | HHI.IDPN ---
Note Infectious Disease Note Patient feels okay. No complaints. Denies chills, N/V. Afebrile. Blood culture has staph aureus. MSSA. 2D ECHO - R. ventricle thrombus vs vegetation. NELSY - TV vegetation. 1x 2cm. Patient was brought to the emergency department because of edema. The patient reports that she had vomiting and diarrhea a couple weeks ago and she was given Ivermectin pill for the diarrhea. Admitted with fever and low hemoglobin. PAST MEDICAL HISTORY 1. IV drug abuse. 2. Bilateral tubal ligation 3. Laparotomy 4. 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 COPD ALLERGIES CIPROFLOXACIN ANTIBIOTICS: Vancomycin Current Medications Medications (Trade) Dose Ordered Sig/Piedad Route PRN Reason Start Time Stop Time Status Last Admin Dose Admin Sodium Chloride (NS Flush) 2 ml UNSCH PRN IV FLUSH FLUSH AFTER USING IV ACCESS 02/28/17 02:00 Sodium Chloride (NS Flush) 2 ml BID IV FLUSH 02/28/17 09:00 03/02/17 08:42 Naloxone HCl (Narcan Inj) 0.4 mg UNSCH PRN IV PUSH SEE LABEL COMMENTS 02/28/17 02:00 Nystatin (Mycostatin Liq) 5 ml QID SWISH-SWAL 02/28/17 09:00 03/02/17 13:03 Heparin Sodium/ Dextrose 250 ml @ 9 mls/hr TITRATE PRN IV Coagulation Management 02/28/17 13:15 02/28/17 17:09 Acetaminophen (Tylenol) 650 mg Q4H PRN PO pain 1-2/ fever 02/28/17 18:00 03/01/17 17:02 Iron Sucrose 200 mg/Sodium Chloride 110 ml @ 110 mls/hr Q24H IV 03/01/17 13:00 03/03/17 13:59 03/02/17 13:03 Miscellaneous Information SPECIFIC LAB TO BE DRAWN:VANCOMYCIN TROUGH DATE TO... ONCE ONCE .XX 03/03/17 12:45 03/03/17 12:46 Miscellaneous Information 1 UNSCH PRN XX SEE LABEL COMMENTS 03/02/17 10:30 03/05/17 10:29 Oxacillin Sodium 2 gm/Sodium Chloride 100 ml @ 200 mls/hr Q4H IV 03/02/17 14:30 UNV SOCIAL HISTORY The patient smokes a pack of cigarettes a day. Positive IV drug use. No alcohol. She lives with a roommate. FAMILY HISTORY Patient's mother had lung cancer with metastasis to the brain. OBJECTIVE: Vital Signs Date Time Temp Pulse Resp B/P (MAP) Pulse Ox O2 Delivery O2 Flow Rate FiO2 03/02/17 12:00 97.7 80 24 125/70 (88) 95 03/02/17 12:00 80 03/02/17 11:42 94 Nasal Cannula 2.00 03/02/17 10:00 80 03/02/17 08:00 73 03/02/17 08:00 99.2 72 26 118/64 (82) 92 03/02/17 07:00 Nasal Cannula 2.00 03/02/17 06:00 82 03/02/17 04:00 99.4 78 25 115/62 (79) 97 03/02/17 04:00 78 03/02/17 02:00 92 03/02/17 00:00 76 03/02/17 00:00 99.0 76 35 129/74 (92) 94 03/01/17 22:00 86 03/01/17 20:00 92 03/01/17 20:00 98.4 92 31 115/68 (84) 93 03/01/17 19:41 97 21 03/01/17 19:00 98 Nasal Cannula 2.00 03/01/17 18:55 98.2 88 28 96/65 98 03/01/17 18:40 98.1 83 21 112/63 94 03/01/17 18:00 86 03/01/17 16:00 76 03/01/17 16:00 97.4 76 26 113/68 (83) 98 Laboratory Tests Test 02/28/17 15:13 02/28/17 19:00 03/01/17 06:29 03/02/17 05:16 White Blood Count 9.6 TH/MM3 10.4 TH/MM3 8.4 TH/MM3 11.0 TH/MM3 Red Blood Count 2.44 MIL/MM3 2.44 MIL/MM3 2.23 MIL/MM3 3.54 MIL/MM3 Hemoglobin 6.8 GM/DL 6.8 GM/DL 6.2 GM/DL 9.8 GM/DL Hematocrit 20.5 % 20.3 % 18.7 % 28.6 % Mean Corpuscular Volume 84.0 FL 83.2 FL 83.8 FL 81.0 FL Mean Corpuscular Hemoglobin 27.7 PG 27.8 PG 27.9 PG 27.8 PG Mean Corpuscular Hemoglobin Concent 33.0 % 33.4 % 33.4 % 34.3 % Red Cell Distribution Width 14.5 % 14.8 % 14.8 % 15.6 % Platelet Count 185 TH/MM3 177 TH/MM3 160 TH/MM3 227 TH/MM3 Mean Platelet Volume 7.9 FL 8.0 FL 7.7 FL 7.6 FL Neutrophils (%) (Auto) 89.1 % 77.1 % 82.5 % Lymphocytes (%) (Auto) 5.6 % 15.9 % 11.2 % Monocytes (%) (Auto) 5.0 % 6.4 % 5.6 % Eosinophils (%) (Auto) 0.1 % 0.2 % 0.3 % Basophils (%) (Auto) 0.2 % 0.4 % 0.4 % Neutrophils # (Auto) 9.3 TH/MM3 6.5 TH/MM3 9.1 TH/MM3 Lymphocytes # (Auto) 0.6 TH/MM3 1.3 TH/MM3 1.2 TH/MM3 Monocytes # (Auto) 0.5 TH/MM3 0.5 TH/MM3 0.6 TH/MM3 Eosinophils # (Auto) 0.0 TH/MM3 0.0 TH/MM3 0.0 TH/MM3 Basophils # (Auto) 0.0 TH/MM3 0.0 TH/MM3 0.0 TH/MM3 CBC Comment DIFF FINAL DIFF FINAL DIFF FINAL Differential Comment Haptoglobin 237 MG/DL Laboratory Tests Test 02/28/17 15:13 03/01/17 06:25 03/01/17 12:45 03/02/17 09:21 Blood Urea Nitrogen 11 MG/DL 8 MG/DL 6 MG/DL Creatinine 0.87 MG/DL 0.63 MG/DL 0.64 MG/DL Random Glucose 106 MG/DL 112 MG/DL 88 MG/DL Calcium Level 7.5 MG/DL 7.5 MG/DL 7.7 MG/DL Sodium Level 132 MEQ/L 135 MEQ/L 136 MEQ/L Potassium Level 3.7 MEQ/L 3.2 MEQ/L 3.9 MEQ/L Chloride Level 99 MEQ/L 102 MEQ/L 104 MEQ/L Carbon Dioxide Level 26.4 MEQ/L 25.3 MEQ/L 24.2 MEQ/L Anion Gap 7 MEQ/L 8 MEQ/L 8 MEQ/L Estimat Glomerular Filtration Rate 72 ML/MIN 104 ML/MIN 102 ML/MIN Iron Level 12 MCG/DL Total Iron Binding Capacity 153 MCG/DL Percent Iron Saturation 7.9 % Ferritin 653 NG/ML Vitamin B12 Level 881 PG/ML Folate GREATER THAN 20.0 NG/ML Total Protein 5.8 GM/DL Albumin 1.5 GM/DL Alkaline Phosphatase 102 U/L Aspartate Amino Transf (AST/SGOT) 45 U/L Alanine Aminotransferase (ALT/SGPT) 51 U/L Total Bilirubin 0.4 MG/DL 0.3 MG/DL Direct Bilirubin 0.1 MG/DL Indirect Bilirubin 0.2 MG/DL Lactate Dehydrogenase 202 U/L Microbiology Date/Time Source Procedure Growth Status 02/28/17 04:18 Blood Peripheral Aerobic Blood Culture - Final Staphylococcus Aureus Resulted 02/28/17 04:18 Blood Peripheral Anaerobic Blood Culture - Preliminary NO GROWTH IN 2 DAYS Resulted 02/28/17 04:05 Blood Peripheral Aerobic Blood Culture - Preliminary NO GROWTH IN 2 DAYS Resulted 02/28/17 04:05 Anaerobic Blood Culture - Final Staphylococcus Aureus Resulted 02/28/17 00:45 Blood Peripheral Aerobic Blood Culture - Final Staphylococcus Aureus Complete 02/28/17 00:45 Anaerobic Blood Culture - Final Staphylococcus Aureus Complete 03/01/17 00:15 Stool Stool Stool Occult Blood (INES) - Final HEMOCCULT NEGATIVE Complete 02/28/17 21:30 Urine Clean Catch Urine Culture - Final NO GROWTH IN 48 HOURS. Complete IMAGING: Lower Extremity Ultrasound 02/28/172354 Signed Impressions: Service Date/Time: Tuesday, February 28, 2017 00:53 - CONCLUSION: Negative exam with no evidence of deep venous thrombosis. Nacho Brian MD Chest X-Ray 02/27/172354 Signed Impressions: Service Date/Time: Tuesday, February 28, 2017 00:23 - CONCLUSION: Midinspiratory study with crowding of the lung vasculature and new opacity at the lung bases right greater than left. This could represent early pneumonia. Nacho Brian MD PHYSICAL EXAMINATION GENERAL: No acute distress. HEENT: No icterus. Oropharynx has mild thrush. NECK: Supple without adenopathy. LUNGS: Clear breath sounds. CHEST: Left breast has a nodular, rubbery mass which is mobile measuring approximately 2 cm x 2 cm at the 4 o'clock position. This is nontender. HEART: Regular S1 and S2 without murmurs, rubs or gallops. ABDOMEN: Bowel sounds present, soft, no tenderness appreciated. EXTREMITIES: No clubbing, cyanosis or edema. SKIN: No rash. NEUROLOGIC: No gross focal findings. IMPRESSION 1. Sepsis likely related to IV drug use. Staph aureus. MSSA. 2. Leukocytosis secondary to sepsis. Improved. 3. Left breast lump. 4. Abnormal chest x-ray probably secondary to pneumonia. RECOMMENDATIONS 1. Stop vancomycin. 2. Begin Oxacillin IV. 3. Repeat blood cultures. 4. Monitor clinical status. 5. Left breast lump/mass. Can be evaluated by medical specialty. It is not tender and does not appear to be an infection. Plan on 6 weeks of IV antibiotics. NO PIC placement until cleared by ID. Chris Berrios MD Mar 02, 2017 14:39
[2017-03-02] MEDS ORDERED: OXACILLIN INJ 2 GM in SODIUM CHLORIDE 0.9% INJ 100 ML IV SCH (15:00)
[2017-03-02] MEDS: OXACILLIN INJ 2 GM in SODIUM CHLORIDE 0.9% INJ 100 ML IV SCH ×3 (16:09→23:34)
[2017-03-03] VITALS (11 sets, daily range): BP systolic 113–121; BP diastolic 64–77; PULSE 68–86; RESP 17–20; TEMP 98.2–99.5; O2SAT 92–96
[2017-03-03 00:13] LABS: HEMATOCRIT 27.2 % (35.0-46.0); MEAN CELL VOLUME 82.7 FL (80.0-100.0); MEAN CORPUSCULAR HEMOGLOBIN 28.6 PG (27.0-34.0); MEAN CORPUSCULAR HGB CONC 34.5 % (32.0-36.0); PLATELET COUNT 232 TH/MM3 (150-450); RED BLOOD COUNT 3.29 MIL/MM3 (4.00-5.30); RED CELL DISTRIBUTION WIDTH 15.6 % (11.6-17.2); REVIEW FLAG FINAL; WHITE BLOOD COUNT 8.8 TH/MM3 (4.0-11.0)
[2017-03-03 00:28] LABS: APTT (PATIENT) 30.9 SEC (24.3-30.1); INTERNATIONAL NORMALIZED RATIO 1.3 RATIO; PROTHROMBIN TIME - PATIENT 13.1 SEC (9.8-11.6)
[2017-03-03] MEDS: HEPARIN-D5W 25,000 U/250 ML 250 ML IV PRN (00:44)
[2017-03-03] MEDS: OXACILLIN INJ 2 GM in SODIUM CHLORIDE 0.9% INJ 100 ML IV SCH ×5 (04:00→20:39)
[2017-03-03 07:25] LABS: APTT (PATIENT) 28.4 SEC (24.3-30.1)
[2017-03-03] MEDS: SODIUM CHLORIDE 0.9% FLUSH 10 ML FLUSH IV FLUSH SCH ×2 (07:43→20:39)
[2017-03-03] MEDS: NYSTATIN SUSP 500,000 U/5 ML CUP SWISH-SWAL SCH ×4 (08:20→20:38)
[2017-03-03 09:25] LABS: HEMATOCRIT 30.1 % (35.0-46.0); MEAN CELL VOLUME 81.7 FL (80.0-100.0); MEAN CORPUSCULAR HEMOGLOBIN 29.2 PG (27.0-34.0); MEAN CORPUSCULAR HGB CONC 35.8 % (32.0-36.0); PLATELET COUNT 249 TH/MM3 (150-450); RED BLOOD COUNT 3.68 MIL/MM3 (4.00-5.30); RED CELL DISTRIBUTION WIDTH 15.4 % (11.6-17.2); REVIEW FLAG FINAL; WHITE BLOOD COUNT 9.1 TH/MM3 (4.0-11.0)
--- NOTE | 2017-03-03 11:20 | PD.ONC.PN ---
Subjective Subjective Remarks Afebrile overnight. Patient resting in bed in nad. Denies pain or bleeding. Objective Data Date Time Temp Pulse Resp B/P (MAP) Pulse Ox O2 Delivery O2 Flow Rate FiO2 03/03/17 10:28 94 21 03/03/17 09:57 Room Air 21 03/03/17 08:00 98.4 68 17 121/67 (85) 92 03/03/17 04:00 98.8 69 18 117/66 (83) 94 03/03/17 00:47 72 03/03/17 00:00 98.6 86 20 113/64 (80) 95 03/02/17 22:16 Room Air 03/02/17 20:00 97.7 89 20 127/67 (87) 97 03/02/17 20:00 Room Air 03/02/17 17:30 99.0 82 18 128/69 (88) 97 03/02/17 14:00 72 03/02/17 12:00 97.7 80 24 125/70 (88) 95 03/02/17 12:00 80 03/02/17 11:42 94 Nasal Cannula 2.00 03/03/17 03/03/17 03/03/17 07:00 15:00 23:00 Intake Total 100 ml Output Total 400 ml Balance -400 ml 100 ml Result Diagram: 03/03/17 0857 03/02/17 0921 Laboratory Results Laboratory Tests Test 03/02/17 23:16 03/03/17 06:58 03/03/17 08:57 White Blood Count 8.8 TH/MM3 9.1 TH/MM3 Red Blood Count 3.29 MIL/MM3 3.68 MIL/MM3 Hemoglobin 9.4 GM/DL 10.8 GM/DL Hematocrit 27.2 % 30.1 % Mean Corpuscular Volume 82.7 FL 81.7 FL Mean Corpuscular Hemoglobin 28.6 PG 29.2 PG Mean Corpuscular Hemoglobin Concent 34.5 % 35.8 % Red Cell Distribution Width 15.6 % 15.4 % Platelet Count 232 TH/MM3 249 TH/MM3 Mean Platelet Volume 7.8 FL 7.9 FL Prothrombin Time 13.1 SEC Prothromb Time International Ratio 1.3 RATIO Activated Partial Thromboplast Time 30.9 SEC 28.4 SEC Culture Results Microbiology Date/Time Source Procedure Growth Status 03/02/17 17:41 Blood Peripheral Aerobic Blood Culture - Preliminary NO GROWTH IN 1 DAY Resulted 03/02/17 17:41 Blood Peripheral Anaerobic Blood Culture - Preliminary NO GROWTH IN 1 DAY Resulted 03/02/17 17:35 Blood Peripheral Aerobic Blood Culture - Preliminary NO GROWTH IN 1 DAY Resulted 03/02/17 17:35 Blood Peripheral Anaerobic Blood Culture - Preliminary NO GROWTH IN 1 DAY Resulted 03/01/17 00:15 Stool Stool Stool Occult Blood (INES) - Final HEMOCCULT NEGATIVE Complete 02/28/17 21:30 Urine Clean Catch Urine Culture - Final NO GROWTH IN 48 HOURS. Complete Administered Medications Medications (Trade) Dose Ordered Sig/Piedad Route PRN Reason Start Time Stop Time Status Last Admin Dose Admin Sodium Chloride (NS Flush) 2 ml BID IV FLUSH 02/28/17 09:00 03/03/17 07:43 Nystatin (Mycostatin Liq) 5 ml QID SWISH-SWAL 02/28/17 09:00 03/03/17 08:20 Acetaminophen (Tylenol) 650 mg Q4H PRN PO pain 1-2/ fever 02/28/17 18:00 03/01/17 17:02 Iron Sucrose 200 mg/Sodium Chloride 110 ml @ 110 mls/hr Q24H IV 03/01/17 13:00 03/03/17 13:59 03/02/17 13:03 Oxacillin Sodium 2 gm/Sodium Chloride 100 ml @ 200 mls/hr Q4H IV 03/02/17 16:00 03/03/17 08:20 Heparin Sodium/ Dextrose 250 ml @ 0.1 mls/hr TITRATE PRN IV Coagulation Management 03/02/17 22:30 03/03/17 00:44 Objective Remarks GENERAL: Middle aged female sitting up in bed in [facility]. SKIN: Warm and dry. multiple abrasions/excoriations on skin HEAD: Normocephalic. EYES: No injection or drainage. NECK: Supple, trachea midline. CARDIOVASCULAR: +S1/S2 RESPIRATORY: Breath sounds equal bilaterally. No accessory muscle use. GASTROINTESTINAL: Abdomen soft, non-tender, nondistended. EXTREMITIES: No cyanosis NEUROLOGICAL: awake and alert, normal speech. moving all extremities. Assessment/Plan Problem List: (1) Right ventricular thrombus without CA ICD Codes: I51.3 - Intracardiac thrombosis, not elsewhere classified Status: Resolved Plan: --on heparin gtt -- The patient had an echocardiogram that revealed a 1 x 1.4 cm echogenic structure in the right ventricle most likely representing a thrombus. 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 -- Severe anemia due to iron deficiency -- Also has anemia of chronic inflammation -- Hemoccult negative -- Closely monitor CBC --ANGELA negative --no sign of hemolysis. Assessment 41 y/o female with history of IV drug abuse admitted with edema and shortness of breath found to be severely anemic and also with thrombus to right ventricle Plan 1. continue heparin drip 2. continue IV iron 3. abx per ID 3. d/w Dr. Ramos--will start coumadin when no other procedures planned. Attending Statement The exam, history, and the medical decision-making described in the above note were completed with the assistance of the mid-level provider. I reviewed and agree with the findings presented. I attest that I had a [id number] encounter with the patient on the same day, and personally performed and documented my assessment and findings in the medical record d/w rn o/n events reviewed Judi Rey Mar 03, 2017 11:20 Ervin Ramos MD Mar 03, 2017 21:46
[2017-03-03] MEDS: IRON SUCROSE INJ 200 MG in SODIUM CHLORIDE 0.9% INJ 100 ML IV SCH (12:29)
--- NOTE | 2017-03-03 12:42 | HHI.PR ---
Subjective Remarks patient feeling better states she has been up and ambulating afebrile Objective Vitals Vital Signs Date Time Temp Pulse Resp B/P (MAP) Pulse Ox O2 Delivery O2 Flow Rate FiO2 03/03/17 10:28 94 21 03/03/17 09:57 Room Air 21 03/03/17 08:00 98.4 68 17 121/67 (85) 92 03/03/17 04:00 98.8 69 18 117/66 (83) 94 03/03/17 00:47 72 03/03/17 00:00 98.6 86 20 113/64 (80) 95 03/02/17 22:16 Room Air 03/02/17 20:00 97.7 89 20 127/67 (87) 97 03/02/17 20:00 Room Air 03/02/17 17:30 99.0 82 18 128/69 (88) 97 03/02/17 14:00 72 I/O 03/02/17 03/02/17 03/02/17 03/03/17 03/03/17 03/03/17 06:59 14:59 22:59 06:59 14:59 22:59 Intake Total 100 ml Output Total 400 ml Balance -400 ml 100 ml IV Total 100 ml Output Urine Total 400 ml # Voids 3 # Bowel Movements 1 Result Diagram: 03/03/17 0857 03/02/17 0921 Imaging Last Impressions Lower Extremity Ultrasound 02/28/172354 Signed Impressions: Service Date/Time: Tuesday, February 28, 2017 00:53 - CONCLUSION: Negative exam with no evidence of deep venous thrombosis. Nacho Brian MD Chest X-Ray 02/27/172354 Signed Impressions: Service Date/Time: Tuesday, February 28, 2017 00:23 - CONCLUSION: Midinspiratory study with crowding of the lung vasculature and new opacity at the lung bases right greater than left. This could represent early pneumonia. Nacho Brian MD Objective Remarks awake and alert + oral /tongue thrush + breast mass- left breast, non tender regular rhythm abdomen - soft, nontender extremities no edema Procedures 03/02- NELSY- shows no RV thrombus- shows a mobile vegetation A/P Assessment and Plan 41 years old female S aureus sepsis - history of IVDU S/P NELSY- shows no RV thrombus- shows a mobile vegetation -on IV Vancomycin. - ID ff. ff final sensitivity - S. aureus - on heparin drip- - d/w Hematology- can start coumadin if no further procedures Severe Iron deficiency anemia- S/P transfusion - H and H up - s/p IV Venfoer x 3 bags - per patient chronic history of iron deficiency - denies any vaginal bleeding, GI bleeding- stools black from po Iron - Hematology ff along with us HYpokalemia- got 30 meq po - improved Oral thrush - Nystatin S/S qid Left breast lump - non tender - get an US- may be done as OP Tachypneic but maintaining sats- likely from sepsis- improved - another consideration is Septic emboli palliative care consult appreciated- delmy be ff along with us pt has a daughter in [place]- contact info in her cell- phone being charged- orders written for Nursing to get that number once phone is charged and to put it on file will need to inform daughter of pt's status- pt agrees dvt prophylaxis - on Heparin for RV thrombus June Ramos MD Mar 03, 2017 12:42
[2017-03-03] MEDS ORDERED: PHARMACY ORDERED LAB ONE (12:45)
--- NOTE | 2017-03-03 15:57 | HHI.IDPN ---
Note Infectious Disease Note Patient feels okay. No complaints. Denies chills, N/V. Afebrile. Blood culture has staph aureus. MSSA. NELSY - TV vegetation. 1 x 2cm. Patient was brought to the emergency department because of edema. The patient reports that she had vomiting and diarrhea a couple weeks ago and she was given Ivermectin pill for the diarrhea. Admitted with fever and low hemoglobin. PAST MEDICAL HISTORY 1. IV drug abuse. 2. Bilateral tubal ligation 3. Laparotomy 4. 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 COPD ALLERGIES CIPROFLOXACIN ANTIBIOTICS: Oxacillin Current Medications Medications (Trade) Dose Ordered Sig/Piedad Route PRN Reason Start Time Stop Time Status Last Admin Dose Admin Sodium Chloride (NS Flush) 2 ml UNSCH PRN IV FLUSH FLUSH AFTER USING IV ACCESS 02/28/17 02:00 Sodium Chloride (NS Flush) 2 ml BID IV FLUSH 02/28/17 09:00 03/03/17 07:43 Naloxone HCl (Narcan Inj) 0.4 mg UNSCH PRN IV PUSH SEE LABEL COMMENTS 02/28/17 02:00 Nystatin (Mycostatin Liq) 5 ml QID SWISH-SWAL 02/28/17 09:00 03/03/17 12:29 Acetaminophen (Tylenol) 650 mg Q4H PRN PO pain 1-2/ fever 02/28/17 18:00 03/01/17 17:02 Miscellaneous Information 1 UNSCH PRN XX SEE LABEL COMMENTS 03/02/17 10:30 03/05/17 10:29 Oxacillin Sodium 2 gm/Sodium Chloride 100 ml @ 200 mls/hr Q4H IV 03/02/17 16:00 03/03/17 12:29 Heparin Sodium/ Dextrose 250 ml @ 0.1 mls/hr TITRATE PRN IV Coagulation Management 03/02/17 22:30 03/03/17 00:44 Warfarin Sodium (Coumadin) 10 mg ONCE ONCE PO 03/03/17 16:00 03/03/17 16:01 SOCIAL HISTORY The patient smokes a pack of cigarettes a day. Positive IV drug use. No alcohol. She lives with a roommate. FAMILY HISTORY Patient's mother had lung cancer with metastasis to the brain. OBJECTIVE: Vital Signs Date Time Temp Pulse Resp B/P (MAP) Pulse Ox O2 Delivery O2 Flow Rate FiO2 12/8/17 12:00 98.5 84 17 116/65 (82) 96 03/03/17 10:28 94 21 03/03/17 09:57 Room Air 21 03/03/17 08:00 98.4 68 17 121/67 (85) 92 03/03/17 04:00 98.8 69 18 117/66 (83) 94 03/03/17 00:47 72 03/03/17 00:00 98.6 86 20 113/64 (80) 95 03/02/17 22:16 Room Air 03/02/17 20:00 97.7 89 20 127/67 (87) 97 03/02/17 20:00 Room Air 03/02/17 17:30 99.0 82 18 128/69 (88) 97 Laboratory Tests Test 03/02/17 05:16 03/02/17 23:16 03/03/17 08:57 White Blood Count 11.0 TH/MM3 8.8 TH/MM3 9.1 TH/MM3 Red Blood Count 3.54 MIL/MM3 3.29 MIL/MM3 3.68 MIL/MM3 Hemoglobin 9.8 GM/DL 9.4 GM/DL 10.8 GM/DL Hematocrit 28.6 % 27.2 % 30.1 % Mean Corpuscular Volume 81.0 FL 82.7 FL 81.7 FL Mean Corpuscular Hemoglobin 27.8 PG 28.6 PG 29.2 PG Mean Corpuscular Hemoglobin Concent 34.3 % 34.5 % 35.8 % Red Cell Distribution Width 15.6 % 15.6 % 15.4 % Platelet Count 227 TH/MM3 232 TH/MM3 249 TH/MM3 Mean Platelet Volume 7.6 FL 7.8 FL 7.9 FL Neutrophils (%) (Auto) 82.5 % Lymphocytes (%) (Auto) 11.2 % Monocytes (%) (Auto) 5.6 % Eosinophils (%) (Auto) 0.3 % Basophils (%) (Auto) 0.4 % Neutrophils # (Auto) 9.1 TH/MM3 Lymphocytes # (Auto) 1.2 TH/MM3 Monocytes # (Auto) 0.6 TH/MM3 Eosinophils # (Auto) 0.0 TH/MM3 Basophils # (Auto) 0.0 TH/MM3 CBC Comment DIFF FINAL Differential Comment Laboratory Tests Test 03/02/17 09:21 Blood Urea Nitrogen 6 MG/DL Creatinine 0.64 MG/DL Random Glucose 88 MG/DL Calcium Level 7.7 MG/DL Sodium Level 136 MEQ/L Potassium Level 3.9 MEQ/L Chloride Level 104 MEQ/L Carbon Dioxide Level 24.2 MEQ/L Anion Gap 8 MEQ/L Estimat Glomerular Filtration Rate 102 ML/MIN Microbiology Date/Time Source Procedure Growth Status 03/02/17 17:41 Blood Peripheral Aerobic Blood Culture - Preliminary NO GROWTH IN 1 DAY Resulted 03/02/17 17:41 Blood Peripheral Anaerobic Blood Culture - Preliminary NO GROWTH IN 1 DAY Resulted 03/02/17 17:35 Blood Peripheral Aerobic Blood Culture - Preliminary NO GROWTH IN 1 DAY Resulted 03/02/17 17:35 Blood Peripheral Anaerobic Blood Culture - Preliminary NO GROWTH IN 1 DAY Resulted 03/01/17 00:15 Stool Stool Stool Occult Blood (INES) - Final HEMOCCULT NEGATIVE Complete 02/28/17 21:30 Urine Clean Catch Urine Culture - Final NO GROWTH IN 48 HOURS. Complete Microbiology Date/Time Source Procedure Growth Status 02/28/17 04:18 Blood Peripheral Aerobic Blood Culture - Final Staphylococcus Aureus Resulted 02/28/17 04:18 Blood Peripheral Anaerobic Blood Culture - Preliminary NO GROWTH IN 2 DAYS Resulted 02/28/17 04:05 Blood Peripheral Aerobic Blood Culture - Preliminary NO GROWTH IN 2 DAYS Resulted 02/28/17 04:05 Anaerobic Blood Culture - Final Staphylococcus Aureus Resulted 02/28/17 00:45 Blood Peripheral Aerobic Blood Culture - Final Staphylococcus Aureus Complete 02/28/17 00:45 Anaerobic Blood Culture - Final Staphylococcus Aureus Complete 03/01/17 00:15 Stool Stool Stool Occult Blood (INES) - Final HEMOCCULT NEGATIVE Complete 02/28/17 21:30 Urine Clean Catch Urine Culture - Final NO GROWTH IN 48 HOURS. Complete IMAGING: Lower Extremity Ultrasound 02/28/172354 Signed Impressions: Service Date/Time: Tuesday, February 28, 2017 00:53 - CONCLUSION: Negative exam with no evidence of deep venous thrombosis. Nacho Brian MD Chest X-Ray 02/27/172354 Signed Impressions: Service Date/Time: Tuesday, February 28, 2017 00:23 - CONCLUSION: Midinspiratory study with crowding of the lung vasculature and new opacity at the lung bases right greater than left. This could represent early pneumonia. Nacho Brian MD PHYSICAL EXAMINATION GENERAL: No acute distress. HEENT: No icterus. Oropharynx has mild thrush. NECK: Supple without adenopathy. LUNGS: Clear breath sounds. CHEST: Left breast has a nodular, rubbery mass which is mobile measuring approximately 2 cm x 2 cm at the 4 o'clock position. This is nontender. HEART: Regular S1 and S2 without murmurs, rubs or gallops. ABDOMEN: Bowel sounds present, soft, no tenderness. EXTREMITIES: No clubbing, cyanosis or edema. SKIN: No rash. NEUROLOGIC: No gross focal findings. IMPRESSION 1. Sepsis related to IV drug use. Staph aureus. MSSA. 2. Leukocytosis secondary to sepsis. Improved. 3. Left breast lump. 4. Abnormal chest x-ray probably secondary to pneumonia. RECOMMENDATIONS 1. Continue Oxacillin IV. 3. Monitor repeat blood cultures. 4. Monitor clinical status. 5. IVDU. Plan on 6 weeks of IV antibiotics. NO PIC placement until cleared by ID. Chris Berrios MD Mar 03, 2017 15:57
[2017-03-03] MEDS ORDERED: WARFARIN SOD 5 MG TAB PO ONE (16:00)
[2017-03-03 20:19] LABS: APTT (PATIENT) 30.6 SEC (24.3-30.1)
[2017-03-04] VITALS (7 sets, daily range): BP systolic 114–141; BP diastolic 56–78; PULSE 67–105; RESP 17–18; TEMP 97–98.6; O2SAT 18–95
[2017-03-04] MEDS: OXACILLIN INJ 2 GM in SODIUM CHLORIDE 0.9% INJ 100 ML IV SCH ×7 (00:24→23:11)
[2017-03-04] MEDS: HEPARIN-D5W 25,000 U/250 ML 250 ML IV PRN ×2 (00:31→23:10)
[2017-03-04 03:17] LABS: APTT (PATIENT) 38.4 SEC (24.3-30.1)
[2017-03-04] MEDS: NYSTATIN SUSP 500,000 U/5 ML CUP SWISH-SWAL SCH ×4 (08:23→20:06)
[2017-03-04] MEDS: SODIUM CHLORIDE 0.9% FLUSH 10 ML FLUSH IV FLUSH SCH ×2 (08:26→20:06)
--- NOTE | 2017-03-04 10:11 | HHI.PR ---
Subjective Remarks resting comfortably- "slept good" patient did not ask for any pain meds/no pain complains Objective Vitals Vital Signs Date Time Temp Pulse Resp B/P (MAP) Pulse Ox O2 Delivery O2 Flow Rate FiO2 03/04/17 08:00 80 03/04/17 04:00 97.7 86 18 132/77 (95) 18 03/04/17 04:00 67 03/04/17 00:37 69 03/04/17 00:00 98.6 71 18 132/77 (95) 95 03/03/17 20:00 80 03/03/17 20:00 98.2 84 20 116/65 (82) 92 03/03/17 18:08 96 21 03/03/17 16:00 99.5 76 18 119/77 (91) 96 03/03/17 12:07 82 03/03/17 12:00 98.5 84 17 116/65 (82) 96 03/03/17 10:28 94 21 I/O 03/03/17 03/03/17 03/03/17 03/04/17 03/04/17 03/04/17 07:00 15:00 23:00 07:00 15:00 23:00 Intake Total 100 ml 1640 ml 982 ml Output Total 400 ml Balance -400 ml 100 ml 1640 ml 982 ml Intake Oral 1440 ml 480 ml IV Total 100 ml 200 ml 502 ml Output Urine Total 400 ml # Voids 5 3 # Bowel Movements 2 2 Result Diagram: 03/03/17 0857 03/02/17 0921 Imaging Last Impressions Lower Extremity Ultrasound 02/28/172354 Signed Impressions: Service Date/Time: Tuesday, February 28, 2017 00:53 - CONCLUSION: Negative exam with no evidence of deep venous thrombosis. Nacho Brian MD Chest X-Ray 02/27/172354 Signed Impressions: Service Date/Time: Tuesday, February 28, 2017 00:23 - CONCLUSION: Midinspiratory study with crowding of the lung vasculature and new opacity at the lung bases right greater than left. This could represent early pneumonia. Nacho Brian MD Objective Remarks awake and alert + oral /tongue thrush- marked improved- almost resolved + breast mass- left breast, non tender regular rhythm abdomen - soft, nontender extremities no edema Procedures 03/02- NELSY- shows no RV thrombus- shows a mobile vegetation A/P Assessment and Plan 41 years old female MSSA sepsis - history of IVDU S/P NELSY- shows no RV thrombus- shows a mobile vegetation -on IV Vancomycin. - on heparin drip- - d/w Hematology- - on coumadin overlap 10 mg today -INR in am Severe Iron deficiency anemia- S/P transfusion - H and H up - s/p IV Venfoer x 3 bags - per patient chronic history of iron deficiency - denies any vaginal bleeding, GI bleeding- stools black from po Iron - Hematology ff along with us HYpokalemia-resolved Oral thrush- improving - Nystatin S/S qid Left breast lump - non tender - get an US- may be done as OP Tachypneic but maintaining sats- likely from sepsis- Improved palliative care consult appreciated- delmy be ff along with us pt has a daughter in [place]- contact info in her cell- phone being charged- orders written for Nursing to get that number once phone is charged and to put it on file will need to inform daughter of pt's status- pt agrees dvt prophylaxis - on Heparin for RV thrombus June Ramos MD Mar 04, 2017 10:11
[2017-03-04 11:21] LABS: APTT (PATIENT) 39.4 SEC (24.3-30.1)
[2017-03-04] MEDS ORDERED: WARFARIN SOD 10 MG TAB PO ONE (16:00)
[2017-03-04 20:29] LABS: APTT (PATIENT) 47.4 SEC (24.3-30.1)
[2017-03-05] VITALS (9 sets, daily range): BP systolic 114–145; BP diastolic 65–92; PULSE 62–96; RESP 17–18; TEMP 97.3–98.3; O2SAT 94–97
[2017-03-05 02:38] LABS: AUTOMATED NEUTROPHIL # 8.8 TH/MM3 (1.8-7.7); BASOPHIL # 0.1 TH/MM3 (0-0.2); BASOPHIL % 0.5 % (0.0-2.0); EOSINOPHIL # 0.2 TH/MM3 (0-0.4); EOSINOPHIL % 1.9 % (0.0-4.0); HEMATOCRIT 30.8 % (35.0-46.0); HEMO FLAGS DIFF FINAL; LYMPH % 13.1 % (9.0-44.0); LYMPHOCYTE # 1.5 TH/MM3 (1.0-4.8); MEAN CELL VOLUME 83.8 FL (80.0-100.0); MEAN CORPUSCULAR HEMOGLOBIN 27.5 PG (27.0-34.0); MEAN CORPUSCULAR HGB CONC 32.8 % (32.0-36.0); MONO % 4.8 % (0.0-8.0); NEUT % 79.7 % (16.0-70.0); PLATELET COUNT 316 TH/MM3 (150-450); RED BLOOD COUNT 3.67 MIL/MM3 (4.00-5.30); RED CELL DISTRIBUTION WIDTH 15.4 % (11.6-17.2)
[2017-03-05 03:08] LABS: ALT (GPT) 58 U/L (10-53); ANION GAP 8 MEQ/L (5-15); AST (GOT) 49 U/L (15-37); BICARBONATE 25.7 MEQ/L (21.0-32.0); BLOOD UREA NITROGEN 5 MG/DL (7-18); CHLORIDE 102 MEQ/L (98-107); GLOMERULAR FILTRATION RATE 99 ML/MIN (>89); POTASSIUM 3.3 MEQ/L (3.5-5.1); SODIUM (NA) 136 MEQ/L (136-145)
[2017-03-05 03:09] LABS: ALKALINE PHOSPHATASE 134 U/L (45-117); APTT (PATIENT) 49.1 SEC (24.3-30.1); INTERNATIONAL NORMALIZED RATIO 5.9 RATIO; PROTHROMBIN TIME - PATIENT 58.9 SEC (9.8-11.6); TOTAL BILIRUBIN ADULT 0.2 MG/DL (0.2-1.0)
[2017-03-05] MEDS: OXACILLIN INJ 2 GM in SODIUM CHLORIDE 0.9% INJ 100 ML IV SCH ×5 (03:17→22:25)
[2017-03-05] MEDS: NYSTATIN SUSP 500,000 U/5 ML CUP SWISH-SWAL SCH ×4 (08:42→21:00)
[2017-03-05] MEDS: SODIUM CHLORIDE 0.9% FLUSH 10 ML FLUSH IV FLUSH SCH ×2 (08:42→21:00)
--- NOTE | 2017-03-05 11:38 | HHI.PR ---
Subjective Remarks Follow up sepsis, bacteremia, endocarditis. The patient has no complaints at this time. Denies chest pain, dyspnea, nausea, vomiting, abdominal pain. Objective Vitals Vital Signs Date Time Temp Pulse Resp B/P (MAP) Pulse Ox O2 Delivery O2 Flow Rate FiO2 03/05/17 10:07 97 03/05/17 08:00 98.3 82 18 121/73 (89) 97 03/05/17 04:00 98.2 80 17 145/92 (109) 95 03/05/17 04:00 62 03/05/17 00:15 77 03/05/17 00:00 97.8 84 17 132/77 (95) 95 03/04/17 20:00 98.2 85 17 125/69 (87) 95 03/04/17 20:00 105 03/04/17 16:00 97.0 88 18 114/56 (75) 94 03/04/17 12:00 98.0 87 18 127/76 (93) 94 I/O 03/04/17 03/04/17 03/04/17 03/05/17 03/05/17 03/05/17 07:00 15:00 23:00 07:00 15:00 23:00 Intake Total 982 ml 200 ml 1070 ml 814 ml Output Total 1000 ml Balance 982 ml 200 ml 1070 ml -186 ml Intake Oral 480 ml 960 ml 240 ml IV Total 502 ml 200 ml 110 ml 574 ml Output Urine Total 1000 ml # Voids 3 4 # Bowel Movements 2 4 1 Result Diagram: 03/05/17 0152 03/05/17 015 Imaging Last Impressions Lower Extremity Ultrasound 02/28/172354 Signed Impressions: Service Date/Time: Tuesday, February 28, 2017 00:53 - CONCLUSION: Negative exam with no evidence of deep venous thrombosis. Nacho Brian MD Chest X-Ray 02/27/172354 Signed Impressions: Service Date/Time: Tuesday, February 28, 2017 00:23 - CONCLUSION: Midinspiratory study with crowding of the lung vasculature and new opacity at the lung bases right greater than left. This could represent early pneumonia. Nacho Brian MD Objective Remarks General: No acute distress. Heart: Regular rate and rhythm. No murmur. Lungs: Clear to auscultation bilaterally. No wheezes, rales, or rhonchi. Breathing is nonlabored. Abdomen: Soft, nontender, nondistended. Extremities: No lower extremity edema. Psych: Alert and oriented. Procedures 03/02- NELSY- shows no RV thrombus- shows a mobile vegetation Urinary Catheter: No Vascular Central Line Catheter: No A/P Assessment and Plan 1. MSSA sepsis, bacteremia, endocarditis: Patient has history of IV drug abuse. NELSY shows mobile vegetation. On heparin drip for possible right ventricular thrombus. Continue IV vancomycin. Appreciate infectious disease recommendations. 2. Iron deficiency anemia: Status post transfusion. H&H improving. Status post IV iron. Appreciate hematology recommendations. 3. Hypokalemia: Resolved. 4. Oral thrush: Improved. 5. Left breast lump: Outpatient workup. 6. Appreciate palliative care recommendations. 7. DVT prophylaxis: Heparin drip. Lg Kowalski MD Mar 05, 2017 11:38
[2017-03-05 13:04] LABS: APTT (PATIENT) 52.1 SEC (24.3-30.1)
[2017-03-05] MEDS: HEPARIN-D5W 25,000 U/250 ML 250 ML IV PRN (22:33)
[2017-03-06] VITALS: BP 148/80; PULSE 74; PULSE 85; RESP 17; TEMP 98; O2SAT 97
[2017-03-06] MEDS: OXACILLIN INJ 2 GM in SODIUM CHLORIDE 0.9% INJ 100 ML IV SCH ×6 (01:49→21:23)
[2017-03-06 04:00] VITALS: BP 148/80; PULSE 70; PULSE 74; RESP 17; TEMP 98.1; O2SAT 97
[2017-03-06 07:27] LABS: AUTOMATED NEUTROPHIL # 7.1 TH/MM3 (1.8-7.7); BASOPHIL # 0.1 TH/MM3 (0-0.2); BASOPHIL % 0.6 % (0.0-2.0); EOSINOPHIL # 0.2 TH/MM3 (0-0.4); EOSINOPHIL % 2.1 % (0.0-4.0); HEMATOCRIT 29.3 % (35.0-46.0); HEMO FLAGS DIFF FINAL; LYMPH % 14.5 % (9.0-44.0); LYMPHOCYTE # 1.3 TH/MM3 (1.0-4.8); MEAN CELL VOLUME 83.6 FL (80.0-100.0); MEAN CORPUSCULAR HEMOGLOBIN 28.7 PG (27.0-34.0); MEAN CORPUSCULAR HGB CONC 34.3 % (32.0-36.0); MONO % 6.4 % (0.0-8.0); NEUT % 76.4 % (16.0-70.0); PLATELET COUNT 312 TH/MM3 (150-450); RED CELL DISTRIBUTION WIDTH 15.3 % (11.6-17.2); WHITE BLOOD COUNT 9.2 TH/MM3 (4.0-11.0)
[2017-03-06 07:36] LABS: PROTHROMBIN TIME - PATIENT 69.3 SEC (9.8-11.6)
[2017-03-06 07:54] LABS: INTERNATIONAL NORMALIZED RATIO 6.9 RATIO
[2017-03-06 07:55] LABS: ANION GAP 8 MEQ/L (5-15); AST (GOT) 35 U/L (15-37); BICARBONATE 25.6 MEQ/L (21.0-32.0); BLOOD UREA NITROGEN 5 MG/DL (7-18); CHLORIDE 101 MEQ/L (98-107); GLOMERULAR FILTRATION RATE 92 ML/MIN (>89); MAGNESIUM 1.7 MG/DL (1.5-2.5); POTASSIUM 3.7 MEQ/L (3.5-5.1); SODIUM (NA) 135 MEQ/L (136-145)
[2017-03-06 07:56] LABS: ALT (GPT) 48 U/L (10-53)
[2017-03-06 07:58] LABS: ALKALINE PHOSPHATASE 119 U/L (45-117); TOTAL BILIRUBIN ADULT 0.2 MG/DL (0.2-1.0)
[2017-03-06 08:00] VITALS: BP 136/68; PULSE 90; PULSE 91; RESP 18; TEMP 97.5; O2SAT 97
[2017-03-06] MEDS: NYSTATIN SUSP 500,000 U/5 ML CUP SWISH-SWAL SCH ×4 (08:30→21:23)
[2017-03-06] MEDS: SODIUM CHLORIDE 0.9% FLUSH 10 ML FLUSH IV FLUSH SCH ×2 (08:33→21:00)
[2017-03-06] MEDS ORDERED: PHYTONADIONE 10 MG/ML VIAL SQ ONE (09:00)
--- NOTE | 2017-03-06 10:59 | HHI.PR ---
Subjective Remarks Follow up coagulopathy, endocarditis. Patient denies bleeding. No chest pain, dyspnea. Wants to go home. Objective Vitals Vital Signs Date Time Temp Pulse Resp B/P (MAP) Pulse Ox O2 Delivery O2 Flow Rate FiO2 03/06/17 08:00 97.5 91 18 136/68 (90) 97 03/06/17 04:00 98.1 74 17 148/80 (102) 97 03/06/17 04:00 70 03/06/17 00:00 98.0 74 17 148/80 (102) 97 03/06/17 00:00 85 03/05/17 20:00 97.3 79 17 138/77 (97) 94 03/05/17 17:53 95 21 03/05/17 16:00 97.5 89 18 136/73 (94) 95 03/05/17 16:00 87 03/05/17 12:00 96 03/05/17 12:00 97.4 96 18 114/65 (81) 97 I/O 03/05/17 03/05/17 03/05/17 03/06/17 03/06/17 03/06/17 07:00 15:00 23:00 07:00 15:00 23:00 Intake Total 814 ml 960 ml 1200 ml Output Total 1000 ml Balance -186 ml 960 ml 1200 ml Intake Oral 240 ml 960 ml 1200 ml IV Total 574 ml Output Urine Total 1000 ml # Voids 4 4 # Bowel Movements 1 4 Result Diagram: 03/06/17 0635 03/06/17 0635 Imaging Last Impressions Lower Extremity Ultrasound 02/28/172354 Signed Impressions: Service Date/Time: Tuesday, February 28, 2017 00:53 - CONCLUSION: Negative exam with no evidence of deep venous thrombosis. Nacho Brian MD Chest X-Ray 02/27/172354 Signed Impressions: Service Date/Time: Tuesday, February 28, 2017 00:23 - CONCLUSION: Midinspiratory study with crowding of the lung vasculature and new opacity at the lung bases right greater than left. This could represent early pneumonia. Nacho Brian MD Objective Remarks General: No acute distress. Heart: Regular rate and rhythm. No murmur. Lungs: Clear to auscultation bilaterally. No wheezes, rales, or rhonchi. Breathing is nonlabored. Abdomen: Soft, nontender, nondistended. Extremities: No lower extremity edema. Psych: Alert and oriented. Procedures 03/02- NELSY- shows no RV thrombus- shows a mobile vegetation Urinary Catheter: No Vascular Central Line Catheter: No A/P Assessment and Plan 1. MSSA sepsis, bacteremia, endocarditis: Patient has history of IV drug abuse. NELSY shows mobile vegetation. No evidence of thrombus. Discontinue heparin drip. Continue IV vancomycin. Appreciate infectious disease recommendations. 2. Iron deficiency anemia: Status post transfusion. H&H improving. Status post IV iron. Appreciate hematology recommendations. 3. Hypokalemia: Resolved. 4. Oral thrush: Improved. 5. Left breast lump: Outpatient workup. 6. Appreciate palliative care recommendations. 7. Coagulopathy due to coumadin: INR increasing. Coumadin discontinued. Give vitamin K x 1. 8. DVT prophylaxis: INR is supratherapeutic. Lg Kowalski MD Mar 06, 2017 10:59
--- NOTE | 2017-03-06 11:28 | PD.ONC.PN ---
Subjective Subjective Remarks Afebrile overnight. Patient resting in bed. Asking, "when can I go home?" Denies bleeding or pain. Objective Data Date Time Temp Pulse Resp B/P (MAP) Pulse Ox O2 Delivery O2 Flow Rate FiO2 03/06/17 08:00 97.5 91 18 136/68 (90) 97 03/06/17 04:00 98.1 74 17 148/80 (102) 97 03/06/17 04:00 70 03/06/17 00:00 98.0 74 17 148/80 (102) 97 03/06/17 00:00 85 03/05/17 20:00 97.3 79 17 138/77 (97) 94 03/05/17 17:53 95 21 03/05/17 16:00 97.5 89 18 136/73 (94) 95 03/05/17 16:00 87 03/05/17 12:00 96 03/05/17 12:00 97.4 96 18 114/65 (81) 97 03/06/17 03/06/17 03/06/17 07:00 15:00 23:00 Intake Total 1200 ml Balance 1200 ml Result Diagram: 03/06/17 0635 03/06/17 0635 Laboratory Results Laboratory Tests Test 03/05/17 12:15 03/06/17 06:35 Activated Partial Thromboplast Time 52.1 SEC 79.0 SEC White Blood Count 9.2 TH/MM3 Red Blood Count 3.50 MIL/MM3 Hemoglobin 10.0 GM/DL Hematocrit 29.3 % Mean Corpuscular Volume 83.6 FL Mean Corpuscular Hemoglobin 28.7 PG Mean Corpuscular Hemoglobin Concent 34.3 % Red Cell Distribution Width 15.3 % Platelet Count 312 TH/MM3 Mean Platelet Volume 7.2 FL Neutrophils (%) (Auto) 76.4 % Lymphocytes (%) (Auto) 14.5 % Monocytes (%) (Auto) 6.4 % Eosinophils (%) (Auto) 2.1 % Basophils (%) (Auto) 0.6 % Neutrophils # (Auto) 7.1 TH/MM3 Lymphocytes # (Auto) 1.3 TH/MM3 Monocytes # (Auto) 0.6 TH/MM3 Eosinophils # (Auto) 0.2 TH/MM3 Basophils # (Auto) 0.1 TH/MM3 CBC Comment DIFF FINAL Differential Comment Prothrombin Time 69.3 SEC Prothromb Time International Ratio 6.9 RATIO Blood Urea Nitrogen 5 MG/DL Creatinine 0.70 MG/DL Random Glucose 91 MG/DL Total Protein 6.9 GM/DL Albumin 1.6 GM/DL Calcium Level 8.2 MG/DL Magnesium Level 1.7 MG/DL Alkaline Phosphatase 119 U/L Aspartate Amino Transf (AST/SGOT) 35 U/L Alanine Aminotransferase (ALT/SGPT) 48 U/L Total Bilirubin 0.2 MG/DL Sodium Level 135 MEQ/L Potassium Level 3.7 MEQ/L Chloride Level 101 MEQ/L Carbon Dioxide Level 25.6 MEQ/L Anion Gap 8 MEQ/L Estimat Glomerular Filtration Rate 92 ML/MIN Administered Medications Medications (Trade) Dose Ordered Sig/Piedad Route PRN Reason Start Time Stop Time Status Last Admin Dose Admin Sodium Chloride (NS Flush) 2 ml BID IV FLUSH 02/28/17 09:00 03/06/17 08:33 Nystatin (Mycostatin Liq) 5 ml QID SWISH-SWAL 02/28/17 09:00 03/05/17 16:22 Acetaminophen (Tylenol) 650 mg Q4H PRN PO pain 1-2/ fever 02/28/17 18:00 03/01/17 17:02 Oxacillin Sodium 2 gm/Sodium Chloride 100 ml @ 200 mls/hr Q4H IV 03/02/17 16:00 03/06/17 08:33 Heparin Sodium/ Dextrose 250 ml @ 0.1 mls/hr TITRATE PRN IV Coagulation Management 03/02/17 22:30 03/05/17 22:33 Objective Remarks GENERAL: Middle aged female supine in bed in [facility]. SKIN: Warm and dry. HEAD: Normocephalic. EYES: No injection or drainage. NECK: Supple, trachea midline. CARDIOVASCULAR: +S2/S2 RESPIRATORY: anterior lucas clear. GASTROINTESTINAL: Abdomen soft, non-tender, nondistended. EXTREMITIES: No cyanosis NEUROLOGICAL: awake and alert, normal speech. moving all extremities. Assessment/Plan Problem List: (1) Right ventricular thrombus without SD ICD Codes: I51.3 - Intracardiac thrombosis, not elsewhere classified Status: Resolved Plan: --on heparin gtt -- The patient had an echocardiogram that revealed a 1 x 1.4 cm echogenic structure in the right ventricle most likely representing a thrombus. 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 -- Severe anemia due to iron deficiency -- Also has anemia of chronic inflammation -- Hemoccult negative -- Closely monitor CBC --ANGELA negative --no sign of hemolysis. Assessment 41 y/o female with history of IV drug abuse admitted with edema and shortness of breath found to be severely anemic and also with thrombus to right ventricle Plan 1. continue heparin drip, coumadin on hold due to supra-therapeutic INR 2. monitor CBC Attending Statement The exam, history, and the medical decision-making described in the above note were completed with the assistance of the mid-level provider. I reviewed and agree with the findings presented. I attest that I had a [id number] encounter with the patient on the same day, and personally performed and documented my assessment and findings in the medical record Judi Rey Mar 06, 2017 11:28 Ervin Ramos MD Mar 07, 2017 00:05
[2017-03-06 12:00] VITALS: BP 136/67; PULSE 89; PULSE 94; RESP 18; TEMP 97.5; O2SAT 97
--- NOTE | 2017-03-06 15:03 | HHI.HCPN ---
Reason for visit a. To assist with evaluation and management of symptoms including: Debility , shortness of breath. b. To assist medical decision maker(s) with: better understanding of current medical conditions; weighing benefits/burdens of medical treatment options; making medical treatment decisions. . Subjective/Interval History Palliative care follow up for clarifications of goals of care, ongoing emotional support. Patient admitted with sepsis, bacteremia and endocarditis. Patient seen and assessed in room 1422. Palliative Care SWEATBAND DECORATING MACHINE OPERATOR, Kristin Herndon, is also present. Patient was found resting in bed in no acute distress; alert and oriented to person, place and situation. Chronically ill appearing female who is endorses weakness and fatigue. She denies shortness of breath or pain. Denies nausea or vomiting. Last bowel movement earlier today. Appetite is good, eating 100% of meals. Afebrile. Sepsis related to IVDA. Initial blood cultures with staph aureus - MSSA. Follow-up blood cultures remain negative to date. Transesophageal echocardiogram revealed endocarditis; patient remains on oxacillin. Patient will likely require 6 weeks of IV antibiotics per ID. 03/06/17: PT 69.3, INR 6.9, APTT 79.0 Coagulopathy secondary to Coumadin which has been discontinued, INR trending upward Supratherapeutic INR at 6.9 this morning. Patient administered vitamin K 1. Reviewed with patient clinical course and current medical management. Patient verbalizing frustration that she may need 6 weeks of IV antibiotics; she repeatedly states "I need to get out of here even if its just for a day or two. " Discussed the seriousness of her infection and the importance of completing the recommended coarse of antibiotics, but the patient continues to states that she wants to go home. Patient is encouraged that her children are suppose to be coming soon. Ongoing emotional support and active listening provided. . Advance Directives Living Will: Never completed Health Care Surrogate: Copy in medical record Durable Power of Correctional Manager: Never completed Advance Directive Specifics Date completed: 02/28/2017. . Health Care Surrogate(s): Primary healthcare surrogate is patient's daughter Raissa Coleman, alternate surrogate his son Gallito Silverman. . Objective Vital Signs Date Time Temp Pulse Resp B/P (MAP) Pulse Ox O2 Delivery O2 Flow Rate FiO2 03/06/17 08:00 97.5 91 18 136/68 (90) 97 03/06/17 04:00 98.1 74 17 148/80 (102) 97 03/06/17 04:00 70 03/06/17 00:00 98.0 74 17 148/80 (102) 97 03/06/17 00:00 85 03/05/17 20:00 97.3 79 17 138/77 (97) 94 03/05/17 17:53 95 21 03/05/17 16:00 97.5 89 18 136/73 (94) 95 03/05/17 16:00 87 Intake & Output 03/06/17 03/06/17 07:00 19:00 Intake Total 1200 ml Balance 1200 ml Intake Oral 1200 ml # Voids 4 . Physical Exam CONSTITUTIONAL/GENERAL: This is a thin, ill appearing female resting in bed in no apparent distress. TUBES/LINES/DRAINS: PIV x 2 SKIN: No jaundice or lesions. Skin temperature appropriate. Not diaphoretic. Patchy discoloration to skin on face, torso. HEAD: Atraumatic. Normocephalic. EYES: Pupils equal and round and reactive. Extraocular motions intact. No scleral icterus. No injection or drainage. ENT: Hearing grossly normal. Nose without bleeding or purulent drainage. NECK: Trachea midline. CARDIOVASCULAR: Regular rate and rhythm without murmurs. Peripheral pulses symmetric. RESPIRATORY/CHEST: Symmetric, unlabored respirations. Clear to auscultation. Breath sounds equal bilaterally. No wheezes, rales, or rhonchi. GASTROINTESTINAL: Abdomen soft, nontender, nondistended No guarding. Bowel sounds present. GENITOURINARY: Without palpable bladder distension. MUSCULOSKELETAL: Extremities without clubbing, cyanosis or edema. NEUROLOGICAL: Awake and alert. Motor and sensory grossly within normal limits. Follows commands. Cognitively sharp. Moves all extremities. PSYCHIATRIC: Anxious, angry/frustrated . Diagnostic Tests Laboratory Laboratory Tests Test 03/03/17 19:33 03/04/17 02:51 03/04/17 10:47 03/04/17 20:06 Activated Partial Thromboplast Time 30.6 SEC (24.3-30.1) 38.4 SEC (24.3-30.1) 39.4 SEC (24.3-30.1) 47.4 SEC (24.3-30.1) Test 03/05/17 01:52 03/05/17 12:15 03/06/17 06:35 White Blood Count 11.0 TH/MM3 (4.0-11.0) 9.2 TH/MM3 (4.0-11.0) Red Blood Count 3.67 MIL/MM3 (4.00-5.30) 3.50 MIL/MM3 (4.00-5.30) Hemoglobin 10.1 GM/DL (11.6-15.3) 10.0 GM/DL (11.6-15.3) Hematocrit 30.8 % (35.0-46.0) 29.3 % (35.0-46.0) Mean Corpuscular Volume 83.8 FL (80.0-100.0) 83.6 FL (80.0-100.0) Mean Corpuscular Hemoglobin 27.5 PG (27.0-34.0) 28.7 PG (27.0-34.0) Mean Corpuscular Hemoglobin Concent 32.8 % (32.0-36.0) 34.3 % (32.0-36.0) Red Cell Distribution Width 15.4 % (11.6-17.2) 15.3 % (11.6-17.2) Platelet Count 316 TH/MM3 (150-450) 312 TH/MM3 (150-450) Mean Platelet Volume 7.3 FL (7.0-11.0) 7.2 FL (7.0-11.0) Neutrophils (%) (Auto) 79.7 % (16.0-70.0) 76.4 % (16.0-70.0) Lymphocytes (%) (Auto) 13.1 % (9.0-44.0) 14.5 % (9.0-44.0) Monocytes (%) (Auto) 4.8 % (0.0-8.0) 6.4 % (0.0-8.0) Eosinophils (%) (Auto) 1.9 % (0.0-4.0) 2.1 % (0.0-4.0) Basophils (%) (Auto) 0.5 % (0.0-2.0) 0.6 % (0.0-2.0) Neutrophils # (Auto) 8.8 TH/MM3 (1.8-7.7) 7.1 TH/MM3 (1.8-7.7) Lymphocytes # (Auto) 1.5 TH/MM3 (1.0-4.8) 1.3 TH/MM3 (1.0-4.8) Monocytes # (Auto) 0.5 TH/MM3 (0-0.9) 0.6 TH/MM3 (0-0.9) Eosinophils # (Auto) 0.2 TH/MM3 (0-0.4) 0.2 TH/MM3 (0-0.4) Basophils # (Auto) 0.1 TH/MM3 (0-0.2) 0.1 TH/MM3 (0-0.2) CBC Comment DIFF FINAL DIFF FINAL Differential Comment Prothrombin Time 58.9 SEC (9.8-11.6) 69.3 SEC (9.8-11.6) Prothromb Time International Ratio 5.9 RATIO 6.9 RATIO Activated Partial Thromboplast Time 49.1 SEC (24.3-30.1) 52.1 SEC (24.3-30.1) 79.0 SEC (24.3-30.1) Blood Urea Nitrogen 5 MG/DL (7-18) 5 MG/DL (7-18) Creatinine 0.66 MG/DL (0.50-1.00) 0.70 MG/DL (0.50-1.00) Random Glucose 133 MG/DL (74-106) 91 MG/DL (74-106) Total Protein 6.5 GM/DL (6.4-8.2) 6.9 GM/DL (6.4-8.2) Albumin 1.6 GM/DL (3.4-5.0) 1.6 GM/DL (3.4-5.0) Calcium Level 7.8 MG/DL (8.5-10.1) 8.2 MG/DL (8.5-10.1) Alkaline Phosphatase 134 U/L (45-117) 119 U/L (45-117) Aspartate Amino Transf (AST/SGOT) 49 U/L (15-37) 35 U/L (15-37) Alanine Aminotransferase (ALT/SGPT) 58 U/L (10-53) 48 U/L (10-53) Total Bilirubin 0.2 MG/DL (0.2-1.0) 0.2 MG/DL (0.2-1.0) Sodium Level 136 MEQ/L (136-145) 135 MEQ/L (136-145) Potassium Level 3.3 MEQ/L (3.5-5.1) 3.7 MEQ/L (3.5-5.1) Chloride Level 102 MEQ/L (98-107) 101 MEQ/L (98-107) Carbon Dioxide Level 25.7 MEQ/L (21.0-32.0) 25.6 MEQ/L (21.0-32.0) Anion Gap 8 MEQ/L (5-15) 8 MEQ/L (5-15) Estimat Glomerular Filtration Rate 99 ML/MIN (>89) 92 ML/MIN (>89) Magnesium Level 1.7 MG/DL (1.5-2.5) . Result Diagram: 03/06/1763403/06/17634 Assessment and Plan Disease Oriented Problem List: (1) Sepsis (2) Pneumonia (3) Anemia (4) IV drug abuse Symptom Scale: (1) Shortness of breath 0-10 Scale: 0 Comment: Secondary to acute illness, anemia. (2) Debility 0-10 Scale: Unable to quantify Comment: Secondary to acute illness, sepsis, anemia. Pertinent Non-Medical Issues Psychosocial: Patient originally from [facility]. Unemployed. , has 2 adult children who residing [place]. Planning to return to [place] mid-February. No service. Spiritual: Worship tonya. Legal: Advance directives completed. Ethical issues impacting care: No ethical issues have been identified. . Important Contacts Patient's daughter Raissa Coleman Patient's son Gallito Silverman . Prognosis Mrs. Coleman is a 42-year-old female with a medical history significant for IV drug abuse, COPD and melanoma. Patient presented to ED on 02/27/17 with a history of not feeling well for the prior 2 weeks. Patient endorsing intermittent nausea, vomiting and diarrhea as well as 12lbs weight loss and lower extremity edema. Patient with a history of IV drug use to include injected Pavithra, heroin and hydromorphone. Patient was admitted for further management of sepsis, anasarca and oral thrush. Patient at high risk for further complications, continue decline and . . Code Status: Full Code Plan * CODE STATUS: FULL CODE * HEALTHCARE DECISION-MAKING: Patient participating in medical decision-making. She appears to retain the ability to weight benefits versus burden of treatment options. Has designated her daughter Raissa as the primary healthcare surrogate decision-maker, alternate is her son Gallito Silverman. * GOALS OF CARE: Patient electing aggressive medical management to include FULL code. Patient verbalizing understanding of the recommended treatment/course of IV antibiotics, although she repeatedly states she wants to go home. * SYMPTOMS: = Shortness of breath: Likely secondary to acute illness, acute anemia, sepsis but currently resolved. Oxygen saturations in the mid to high 90s on room air. = Debility: Secondary to acute illness. Patient endorsing ongoing weakness and fatigue. She reports a 12 pound weight loss in recent weeks. * Going emotional support and active listening provided. * Palliative care contact information has been provided to patient. * Palliative care will continue to follow-up for further clarifications of goals of care as patient's clinical course continues to evolve. . Attestation To help prompt me to consider important information that might be impacting today's encounter and assessment, information from prior notes written by myself or my colleagues may have been "brought forward" into today's note. My signature on this note, however, is an attestation that I personally performed the exam, history, and/or decision-making noted today, and, unless otherwise indicated, the interactions with patient, family, and staff as well as the review of records all occurred today. I also attest that the listed assessment and stated plan reflect my best clinical judgment today based on the combination of historical information, prior notes, and today's exam/ interactions. When time spent is documented, it refers only to time spent today by the signer, or if indicated, combined time spent today by collaborating physician/nurse practitioner. . Breana Chavez Mar 06, 2017 15:03
[2017-03-06 16:00] VITALS: BP 133/69; PULSE 92; RESP 18; TEMP 97.9; O2SAT 96
[2017-03-06 20:00] VITALS: BP 139/77; PULSE 90; PULSE 94; RESP 22; TEMP 98.8; O2SAT 95
[2017-03-07] VITALS (7 sets, daily range): BP systolic 130–147; BP diastolic 73–80; PULSE 66–101; RESP 20–24; TEMP 98.3–99.6; O2SAT 94–98
[2017-03-07] MEDS: OXACILLIN INJ 2 GM in SODIUM CHLORIDE 0.9% INJ 100 ML IV SCH ×6 (01:13→19:37)
[2017-03-07 07:02] LABS: AUTOMATED NEUTROPHIL # 6.9 TH/MM3 (1.8-7.7); BASOPHIL % 0.5 % (0.0-2.0); EOSINOPHIL # 0.3 TH/MM3 (0-0.4); EOSINOPHIL % 2.8 % (0.0-4.0); HEMATOCRIT 29.5 % (35.0-46.0); HEMO FLAGS DIFF FINAL; LYMPH % 15.7 % (9.0-44.0); LYMPHOCYTE # 1.4 TH/MM3 (1.0-4.8); MEAN CELL VOLUME 84.6 FL (80.0-100.0); MEAN CORPUSCULAR HEMOGLOBIN 29.1 PG (27.0-34.0); MEAN CORPUSCULAR HGB CONC 34.3 % (32.0-36.0); MONO % 6.2 % (0.0-8.0); NEUT % 74.8 % (16.0-70.0); PLATELET COUNT 327 TH/MM3 (150-450); RED BLOOD COUNT 3.48 MIL/MM3 (4.00-5.30); RED CELL DISTRIBUTION WIDTH 15.6 % (11.6-17.2); WHITE BLOOD COUNT 9.2 TH/MM3 (4.0-11.0)
[2017-03-07 07:15] LABS: INTERNATIONAL NORMALIZED RATIO 2.3 RATIO; PROTHROMBIN TIME - PATIENT 23.6 SEC (9.8-11.6)
[2017-03-07 07:22] LABS: BICARBONATE 24.6 MEQ/L (21.0-32.0); POTASSIUM 3.5 MEQ/L (3.5-5.1)
[2017-03-07] MEDS: NYSTATIN SUSP 500,000 U/5 ML CUP SWISH-SWAL SCH ×4 (08:27→19:38)
[2017-03-07] MEDS: SODIUM CHLORIDE 0.9% FLUSH 10 ML FLUSH IV FLUSH SCH ×2 (08:29→19:38)
--- NOTE | 2017-03-07 12:02 | PD.ONC.PN ---
Subjective Subjective Remarks Afebrile overnight. Patient resting in bed. Tired of being in the hospital. Denies bleeding. Objective Data Date Time Temp Pulse Resp B/P (MAP) Pulse Ox O2 Delivery O2 Flow Rate FiO2 03/07/17 08:00 98.5 101 20 131/75 (93) 98 03/07/17 04:00 99.4 88 22 130/79 (96) 94 03/07/17 04:00 66 03/07/17 04:00 Room Air 03/07/17 00:00 80 03/07/17 00:00 99.6 85 24 143/73 (96) 95 03/07/17 00:00 Room Air 03/06/17 20:00 Room Air 03/06/17 20:00 98.8 94 22 139/77 (97) 95 03/06/17 20:00 90 03/06/17 16:00 97.9 92 18 133/69 (90) 96 03/06/17 12:00 89 03/06/17 12:00 97.5 94 18 136/67 (90) 97 03/07/17 03/07/17 03/07/17 07:00 15:00 23:00 Intake Total 200 ml Output Total 600 ml Balance -400 ml Result Diagram: 03/07/17 0457 03/07/17 0457 Laboratory Results Laboratory Tests Test 03/07/17 04:57 White Blood Count 9.2 TH/MM3 Red Blood Count 3.48 MIL/MM3 Hemoglobin 10.1 GM/DL Hematocrit 29.5 % Mean Corpuscular Volume 84.6 FL Mean Corpuscular Hemoglobin 29.1 PG Mean Corpuscular Hemoglobin Concent 34.3 % Red Cell Distribution Width 15.6 % Platelet Count 327 TH/MM3 Mean Platelet Volume 7.2 FL Neutrophils (%) (Auto) 74.8 % Lymphocytes (%) (Auto) 15.7 % Monocytes (%) (Auto) 6.2 % Eosinophils (%) (Auto) 2.8 % Basophils (%) (Auto) 0.5 % Neutrophils # (Auto) 6.9 TH/MM3 Lymphocytes # (Auto) 1.4 TH/MM3 Monocytes # (Auto) 0.6 TH/MM3 Eosinophils # (Auto) 0.3 TH/MM3 Basophils # (Auto) 0.0 TH/MM3 CBC Comment DIFF FINAL Differential Comment Prothrombin Time 23.6 SEC Prothromb Time International Ratio 2.3 RATIO Blood Urea Nitrogen 7 MG/DL Creatinine 0.64 MG/DL Random Glucose 97 MG/DL Calcium Level 8.1 MG/DL Sodium Level 137 MEQ/L Potassium Level 3.5 MEQ/L Chloride Level 104 MEQ/L Carbon Dioxide Level 24.6 MEQ/L Anion Gap 8 MEQ/L Estimat Glomerular Filtration Rate 102 ML/MIN Administered Medications Medications (Trade) Dose Ordered Sig/Piedad Route PRN Reason Start Time Stop Time Status Last Admin Dose Admin Sodium Chloride (NS Flush) 2 ml BID IV FLUSH 02/28/17 09:00 03/07/17 08:29 Nystatin (Mycostatin Liq) 5 ml QID SWISH-SWAL 02/28/17 09:00 03/06/17 21:23 Acetaminophen (Tylenol) 650 mg Q4H PRN PO pain 1-2/ fever 02/28/17 18:00 03/01/17 17:02 Oxacillin Sodium 2 gm/Sodium Chloride 100 ml @ 200 mls/hr Q4H IV 03/02/17 16:00 03/07/17 08:29 Objective Remarks GENERAL: Middle aged female lying supine in bed. SKIN: Warm and dry. HEAD: Normocephalic. EYES: No injection or drainage. NECK: Supple, trachea midline. CARDIOVASCULAR: +S2/S2 RESPIRATORY: anterior lucas clear. GASTROINTESTINAL: Abdomen soft, non-tender, nondistended. EXTREMITIES: No cyanosis NEUROLOGICAL: awake and alert, normal speech. moving all extremities. Assessment/Plan Problem List: (1) Right ventricular thrombus without MD ICD Codes: I51.3 - Intracardiac thrombosis, not elsewhere classified Status: Resolved Plan: --on coumadin -- The patient had an echocardiogram that revealed a 1 x 1.4 cm echogenic structure in the right ventricle most likely representing a thrombus. 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 -- Blood cultures positive for staph aureus (3) Breast lump ICD Codes: N63.0 - Unspecified lump in unspecified breast Plan: -- Plan for workup as outpatient (4) Iron deficiency anemia ICD Codes: D50.9 - Iron deficiency anemia, unspecified Plan: --s/p IV iron. -- Severe anemia due to iron deficiency -- Also has anemia of chronic inflammation -- Hemoccult negative -- Closely monitor CBC --ANGELA negative --no sign of hemolysis. Assessment 41 y/o female with history of IV drug abuse admitted with edema and shortness of breath found to be severely anemic and also with thrombus to right ventricle Plan 1.start coumadin at low dose. 2. monitor CBC Attending Statement The exam, history, and the medical decision-making described in the above note were completed with the assistance of the mid-level provider. I reviewed and agree with the findings presented. I attest that I had a [id number] encounter with the patient on the same day, and personally performed and documented my assessment and findings in the medical record Pharmacy to dose Coumadin--INR goal of 2-3 will sign-off Pls call if any questions Judi Rey Mar 07, 2017 12:02 Ervin Ramos MD Mar 07, 2017 23:55
--- NOTE | 2017-03-07 13:22 | HHI.PR ---
Subjective Remarks Follow up endocarditis. Patient has no complaints at this time. Denies chest pain, dyspnea, nausea, vomiting. Objective Vitals Vital Signs Date Time Temp Pulse Resp B/P (MAP) Pulse Ox O2 Delivery O2 Flow Rate FiO2 03/07/17 08:00 98.5 101 20 131/75 (93) 98 03/07/17 04:00 99.4 88 22 130/79 (96) 94 03/07/17 04:00 66 03/07/17 04:00 Room Air 03/07/17 00:00 80 03/07/17 00:00 99.6 85 24 143/73 (96) 95 03/07/17 00:00 Room Air 03/06/17 20:00 Room Air 03/06/17 20:00 98.8 94 22 139/77 (97) 95 03/06/17 20:00 90 03/06/17 16:00 97.9 92 18 133/69 (90) 96 I/O 03/06/17 03/06/17 03/06/17 03/07/17 03/07/17 03/07/17 07:00 15:00 23:00 07:00 15:00 23:00 Intake Total 1200 ml 142 ml 680 ml 200 ml Output Total 600 ml Balance 1200 ml 142 ml 680 ml -400 ml Intake Oral 1200 ml 480 ml IV Total 142 ml 200 ml 200 ml Output Urine Total 600 ml # Voids 4 3 # Bowel Movements 2 2 Result Diagram: 03/07/17 0457 03/07/17 0457 Imaging Last Impressions Lower Extremity Ultrasound 02/28/172354 Signed Impressions: Service Date/Time: Tuesday, February 28, 2017 00:53 - CONCLUSION: Negative exam with no evidence of deep venous thrombosis. Nacho Brian MD Chest X-Ray 02/27/17 2838 Signed Impressions: Service Date/Time: Tuesday, February 28, 2017 00:23 - CONCLUSION: Midinspiratory study with crowding of the lung vasculature and new opacity at the lung bases right greater than left. This could represent early pneumonia. Nacho Brian MD Objective Remarks General: No acute distress. Heart: Regular rate and rhythm. No murmur. Lungs: Clear to auscultation bilaterally. No wheezes, rales, or rhonchi. Breathing is nonlabored. Abdomen: Soft, nontender, nondistended. Extremities: No lower extremity edema. Psych: Alert and oriented. Procedures 03/02- NELSY- shows no RV thrombus- shows a mobile vegetation Urinary Catheter: No Vascular Central Line Catheter: No A/P Assessment and Plan 1. MSSA sepsis, bacteremia, endocarditis: Patient has history of IV drug abuse. NELSY shows mobile vegetation. No evidence of thrombus. Discontinue heparin drip. Continue IV oxacillin x 6 weeks. Appreciate infectious disease recommendations. 2. Iron deficiency anemia: Status post transfusion. H&H stable. Status post IV iron. Appreciate hematology recommendations. 3. Hypokalemia: Resolved. 4. Oral thrush: Improved. 5. Left breast lump: Outpatient workup. 6. Appreciate palliative care recommendations. 7. Coagulopathy due to coumadin: Improved. INR now in therapeutic range. 8. DVT prophylaxis: INR is therapeutic. Resume coumadin. Discussed with Judi JARQUIN hematology. Lg Kowalski MD Mar 07, 2017 13:22
[2017-03-07] MEDS ORDERED: WARFARIN SOD 2 MG TAB PO SCH (16:00)
[2017-03-08] VITALS: BP 133/71; PULSE 85; PULSE 92; RESP 24; TEMP 98.4; O2SAT 95
[2017-03-08] MEDS: OXACILLIN INJ 2 GM in SODIUM CHLORIDE 0.9% INJ 100 ML IV SCH ×4 (00:06→12:00)
[2017-03-08 04:00] VITALS: BP 122/71; PULSE 73; PULSE 80; RESP 24; TEMP 98.8; O2SAT 95
[2017-03-08 07:46] VITALS: PULSE 82
[2017-03-08 08:00] VITALS: BP 143/77; PULSE 99; RESP 20; TEMP 98; O2SAT 95
[2017-03-08] MEDS: NYSTATIN SUSP 500,000 U/5 ML CUP SWISH-SWAL SCH ×2 (09:00→13:00)
[2017-03-08] MEDS: SODIUM CHLORIDE 0.9% FLUSH 10 ML FLUSH IV FLUSH SCH (09:00)
[2017-03-08 12:00] VITALS: BP 137/75; PULSE 113; RESP 20; TEMP 98.3; O2SAT 95
--- NOTE | 2017-03-08 12:06 | HHI.PR ---
Subjective Remarks Follow up endocarditis. Patient states that she is going to leave AGAINST MEDICAL ADVICE today. She will be going with her son to [place]. She states that she will go to the hospital when she gets there. No specific complaints at this time. Objective Vitals Vital Signs Date Time Temp Pulse Resp B/P (MAP) Pulse Ox O2 Delivery O2 Flow Rate FiO2 03/08/17 08:00 98.0 99 20 143/77 (99) 95 03/08/17 08:00 Room Air 2.00 21 03/08/17 07:46 82 03/08/17 04:00 98.8 80 24 122/71 (88) 95 03/08/17 04:00 73 03/08/17 00:00 85 03/08/17 00:00 98.4 92 24 133/71 (91) 95 03/07/17 20:00 98.9 96 20 139/80 (99) 96 03/07/17 20:00 Room Air 03/07/17 20:00 91 03/07/17 16:00 98.3 100 20 140/80 (100) 95 03/07/17 16:00 95 I/O 03/07/17 03/07/17 03/07/17 03/08/17 03/08/17 03/08/17 07:00 15:00 23:00 07:00 15:00 23:00 Intake Total 200 ml 1440 ml Output Total 600 ml 450 ml Balance -400 ml 1440 ml -450 ml Intake Oral 1440 ml IV Total 200 ml Output Urine Total 600 ml 450 ml # Voids 3 # Bowel Movements 2 3 1 Result Diagram: 03/07/17 0457 03/07/17 045 Imaging Last Impressions Lower Extremity Ultrasound 02/28/172354 Signed Impressions: Service Date/Time: Tuesday, February 28, 2017 00:53 - CONCLUSION: Negative exam with no evidence of deep venous thrombosis. Nacho Brian MD Chest X-Ray 02/27/172354 Signed Impressions: Service Date/Time: Tuesday, February 28, 2017 00:23 - CONCLUSION: Midinspiratory study with crowding of the lung vasculature and new opacity at the lung bases right greater than left. This could represent early pneumonia. Nacho Brian MD Objective Remarks General: No acute distress. Heart: Regular rate and rhythm. No murmur. Lungs: Clear to auscultation bilaterally. No wheezes, rales, or rhonchi. Breathing is nonlabored. Abdomen: Soft, nontender, nondistended. Extremities: No lower extremity edema. Psych: Alert and oriented. Procedures 03/02- NELSY- shows no RV thrombus- shows a mobile vegetation Urinary Catheter: No Vascular Central Line Catheter: No A/P Assessment and Plan 1. MSSA sepsis, bacteremia, endocarditis: Patient has history of IV drug abuse. NELSY shows mobile vegetation. No evidence of thrombus. Discontinue heparin drip. Continue IV oxacillin x 6 weeks. Appreciate infectious disease recommendations. 2. Iron deficiency anemia: Status post transfusion. H&H stable. Status post IV iron. Appreciate hematology recommendations. 3. Hypokalemia: Resolved. 4. Oral thrush: Improved. 5. Left breast lump: Outpatient workup. 6. Appreciate palliative care recommendations. 7. Coagulopathy due to coumadin: Improved. INR now in therapeutic range. 8. DVT prophylaxis: INR is therapeutic. Resume coumadin. Discharge Planning The patient states that she is leaving AGAINST MEDICAL ADVICE today. She has been counseled on the importance of completing the course of IV antibiotic therapy. She was counseled regarding the risks of leaving without completing treatment. She states that she will be traveling with her son, and will straight to the hospital when she gets there. She states that she needs to get away from the influences in this area that prevent her from keeping clean from IV drugs. Lg Kowalski MD Mar 08, 2017 12:06
[2017-03-08] MEDS ORDERED: COUM2TAB PO (12:08)
== END 2017-03-08 14:13 | disposition left against medical advice (07) | DRG 871 ==
LOC: NEPC 22:22 → NEDA 02-28 01:51 → NEPHCDU 02-28 04:41 → N03A 02-28 09:15 → N04B 03-02 16:57
PROVIDERS: ADMIT Family Medicine; ATTEND Family Medicine
PROC: 30233N1 Transfusion of Nonautologous Red Blood Cells into Peripheral Vein, Percutaneous Approach (ICD-10-PCS; principal; 2017-02-28)
PROC: B246ZZ4 Ultrasonography of Right and Left Heart, Transesophageal (ICD-10-PCS; 2017-03-02)
DX: A41.01 Sepsis due to Methicillin susceptible Staphylococcus aureus (principal); J18.9 Pneumonia, unspecified organism; I33.0 Acute and subacute infective endocarditis; B37.0 Candidal stomatitis; J44.0 Chronic obstructive pulmonary disease with (acute) lower respiratory infection; D50.9 Iron deficiency anemia, unspecified; F11.10 Opioid abuse, uncomplicated; E87.1 Hypo-osmolality and hyponatremia; R65.20 Severe sepsis without septic shock; I10 Essential (primary) hypertension; R11.2 Nausea with vomiting, unspecified; R63.4 Abnormal weight loss; R19.7 Diarrhea, unspecified; N63.20 Unspecified lump in the left breast, unspecified quadrant; R60.1 Generalized edema; I08.1 Rheumatic disorders of both mitral and tricuspid valves; E87.6 Hypokalemia; T45.515A Adverse effect of anticoagulants, initial encounter; R79.1 Abnormal coagulation profile; F17.210 Nicotine dependence, cigarettes, uncomplicated; F32.9 Major depressive disorder, single episode, unspecified; F41.9 Anxiety disorder, unspecified; Z68.21 Body mass index [BMI] 21.0-21.9, adult; Z80.1 Family history of malignant neoplasm of trachea, bronchus and lung; Z85.820 Personal history of malignant melanoma of skin; Z86.14 Personal history of Methicillin resistant Staphylococcus aureus infection; Z88.1 Allergy status to other antibiotic agents
CPT/HCPCS: 36430; 36600; 71010; 76937; 80048; 80053; 80074; 80076; 80202; 80307; 81001; 82247; 82248; 82272; 82550; 82607; 82728; 82746; 82805; 82948; 83010; 83540; 83550; 83605; 83615; 83690; 83735; 83880; 84443; 84484; 84703; 85014; 85018; 85025; 85027; 85384; 85610; 85652; 85730; 86078; 86403; 86703; 86850; 86880; 86900; 86901; 86920; 87040; 87086; 87147; 87186; 87205; 93005; 93306; 93312; 93320; 93325; 93970; 96365; 96368; J1200; J1450; J1644; J1756; J2543; J2700; J3370; J3430; J7030; J7050; P9016